=== PATIENT | female | born 1955 | race Caucasian/White ===

== ENCOUNTER 2017-10-25 17:04 | Emergency (ER) | payer BC, MEDICARE ==
[2017-10-25] MEDS ORDERED: Albuterol 2.5 MG/3 ML NEB.SOL* (0.083%) INH ONE ×2 (17:07→17:47)
[2017-10-25] MEDS ORDERED: Ipratropium 0.5MG/2.5ML NEB* 0.5 MG/2.5 ML NEB.SOLN INH ONE (17:07)
[2017-10-25 17:29] VITALS: BP 157/75
--- OUTSIDE RECORDS SUMMARY | 2017-10-25 17:34 | XMS REPORT ---
:1955 External Reference #:[id number] Author Organization [facility] Address [address], [address] [place] [address] Phone [phone] Care Team Providers Name Role Phone Mariluz Martinez MD Care Team Information Ab Initio Etl Developer Unavailable Mariluz Martinez MD Primary Care Physician Unavailable Payers Type Date Identification Numbers Payment Provider Subscriber Commercial Policy Number: [id number] Linkus Rishi Romain PayID: [id number] [address] [address] [place] [address] [facility] Policy Number: [id number] [facility] Victorina J Romain PayID: [id number] [address] [place] [address] Medicare Primary Expires: 2013 Policy Number: Medicare Victorina Valdivia Romain [id number] PayID: [id number] [address] [address] [place] [address] Problems Date Description Provider Status Onset: 03/05/2015 Chronic obstructive lung disease Donya Denton PA-C Active Onset: 03/05/2015 Subclinical hyperthyroidism Donya Denton PA-C Active Note: TSH 2014 Onset: 03/05/2015 Allergic rhinitis Donya Denton PA-C Active Onset: 03/05/2015 History of polyp of colon Donya Denton PA-C Active Note: 11 TA. colo to TI 2013 Onset: 03/05/2015 Kidney stone Donya Denton PA-C Active Onset: 03/05/2015 Essential hypertension Donya Denton PA-C Active Onset: 03/05/2015 Asthma without status asthmaticus Donya Denton PA-C Active Onset: 03/05/2015 Epilepsy Donya Denton PA-C Active Note: last seizure 2013 Onset: 03/05/2015 History of cerebrovascular accident DIVYA Carr Active without residual deficits Note: 2013 LDL 96 HDL 49; refuses statins Onset: 03/05/2015 Migraine Donya Denton PA-C Active Onset: 03/05/2015 Degenerative joint disease Donya Denton PA-C Active involving multiple joints Note: R knee synovectomy Onset: 03/05/2015 Gastroesophageal reflux disease Donya Denton PA-C Active Note: upper to D2 Bx 2013 Onset: 03/05/2015 Irritable bowel syndrome Donya Denton PA-C Active Note: -D Onset: 03/05/2015 History of thromboembolism of vein DIVYA Carr Active Note: PE, then DVT Onset: 03/05/2015 Type 2 diabetes mellitus Donya Denton PA-C Active Note: A1C 5.26 January 2016, Microalbumin- September 2014; oph October 2015 Onset: 04/17/2015 Adult health examination Donya Denton PA-C Active Note: Next dT 2025. Next PCV 13 / PPSV 23 after 65. Mammogram November 2015 breast exam WNL 13 November 2015 (mammo ordered Ma 2016, pt. did not have done); Pap 2012 (cervical cancer screening should be restarted 2017). Has an indication to start osteoporosis screening since she took prednisone > 7.5 mg in the past (no showed DEXA Jul 2016). RF, ALY neg 2015. Shingles vaccine indication after the age of 60. Onset: 04/24/2015 Paranoid schizophrenia Jason Mercedes M.D. Active Note: Hussain Bigness Onset: 06/12/2015 Dementia Donya Denton PA-C Active Onset: 06/12/2015 Anxiety Donya Denton PA-C Active Note: Managed by [facility] Onset: 08/28/2015 Coronary arteriosclerosis Jason Mercedes M.D. Active Onset: 08/28/2015 Cramp in lower leg associated with Jason Mercedes M.D. Active rest Onset: 09/20/2015 Hyperlipidemia Donya Denton PA-C Active Note: Aug 2015 Chol 274 Trig 294 LDL 159 HDL 56 Onset: 09/26/2015 Narcolepsy Donya Denton PA-C Active Note: responding to modafinil (decreased sleepiness) Onset: 11/12/2015 Screening for malignant neoplasm of DIVYA Carr Active breast Onset: 11/13/2015 Dry eyes Donya Denton PA-C Active Note: Dr. Ronen Church Onset: 08/04/2016 Mixed hyperlipidemia Ronen Howell MD Active Onset: 05/14/2017 Chronic pain syndrome Mariluz Martinez M.D. Active Onset: 05/14/2017 Acute bronchitis Mariluz Martinez M.D. Active Onset: 05/14/2017 Taking medication Mariluz Martinez M.D. Active Onset: 06/03/2017 Vitamin D deficiency Mariluz Martinez M.D. Active Onset: 06/03/2017 Sciatica Mariluz Martinez M.D. Active Onset: 06/03/2017 Abnormal glucose level Mariluz Martinez M.D. Active Onset: 09/03/2017 Low back pain Mariluz Martinez M.D. Active Onset: 09/03/2017 Neck pain Mariluz Martinez M.D. Active Onset: 09/03/2017 Cough Mariluz Martinez M.D. Active Onset: 09/03/2017 Acute sinusitis Mariluz Martinez M.D. 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 Cigarette Use current cigarette smoker ETOH Use Currently consumes alcohol socially Smoking Patient is a current smoker, smokes 1/2 pack per day every day Recreational Drug Use Marijuana Daily Caffeine Patient consumes minimal amounts of caffeine Allergies, Adverse Reactions, Alerts Date Description Reaction Status Severity Comments 05/08/2014 Morphine Resp Distress active 03/06/2015 Atorvastatin rhabdomyolysis active Severe at 80 mg dose 06/11/2015 Amitriptyline active 06/11/2015 Depakote confusion,kidney failure active 06/11/2015 Zithromax rash active 07/24/2015 Sumatriptan Nausea and Vomiting active Moderate Medications Medication Date Status Form Strength Qnty SIG Indications Ordering Provider Fluticasone 09/03 Active Suspension 50mcg/Act 16uni spray 2 J01.90 Andras ts sprays in [facility], each M.D. nostril daily Propranolol HCL 09/03 Active Tablets 20mg 180ta 1 tablet I10 And bs twice a day Karen Martinez Vitamin D3 06/03 Active Capsules 5000Unit 90cap 1 a day E55.9 Andras Maximum s Karen Martinez Clonidine HCL 04/13 Active Tablets 0.1mg 90tab 1 by mouth F41.9 And s three times Juan, daily as M.D. needed Lyrica 03/26 Active Capsules 100mg 90cap take one s capsule by Montes, mouth three M.D. times a day maximum daily dose=3 Soma 02/26 Active Tablets 350mg 90tab 1 by mouth M79.7 And s three times Juan, a day M.D. Donepezil HCL 09/22 Active Tablets 10mg 90tab 1 by mouth s every day Karen Montes Loratadine 09/22 Active Tablets 10mg 90tab 1 by mouth s every day Montes, as needed M.D. Nystatin 07/01 Active Powder [id number] 180gm apply B37.2 t/GM powder to [facility], affected M.D. area under breasts and abdominal folds twice a day Gabapentin 07/01 Active Tablets 600mg 540ta 2 by mouth And bs three times Juan, a day M.D. Ondansetron 07/01 Active Tablets 8mg 90tab 1 tab by Rolando John Dispers s mouth every Paul DO 8 hours as needed nausea Proair HFA 06/30 Active Aerosol 108(90Bas 25.5g 2 Rolando EJohn e) m inhalations Paul DO mcg/Act every 4 hours as needed Niacin ER 02/11 Active Tablets ER 1000mg 180ta 2 by mouth E78.5 Andras (Antihyperlipide /2015 bs every night valarie Martinez) at bedtime M.D. Nebulizer 12/09 Active Kit 1unit as directed Rolando Lott Kit/Tubing/Mouth /2015 s Paul ALDRIDGE piece Restasis 12/09 Active Emulsion 0.05% 60uni 1gtt twice Rolando Lott /2015 ts a day each Paul ALDRIDGE eye Celebrex 09/24 Active Capsules 200mg 90cap 1 by mouth And s every day Karen Martinez Topiramate 06/12 Active Tablets 100mg 180ta take 1 tab G43.909 And bs twice daily Karen Martinez Gemfibrozil 06/12 Active Tablets 600mg 180ta 1 by mouth Z86.73 And bs twice a day Karen Martinez Diazepam 03/27 Active Tablets 10mg 90tab Take 1 And s Tablet (10 Juan, MG) By M.D. Mouth Every 8 Hours as Needed Anxiety MDD 3 Advair Diskus Active Aerosol 500-50mcg 60uni 1 puff Rolando Lott / /Dose ts inhaled Paul ALDRIDGE twice a day Spiriva Active Capsules 18mcg 90cap 1 cap Rolando Lott Handihaler / s inhaled Paul ALDRIDGE daily Nexium Active Capsules DR 40mg 90cap 1 by mouth And / s daily in [facility], the morning M.DJohn Eliquis Active Tablets 2.5mg 60tab 1 tab by Andras / s mouth twice Juan, a day M.D. Acetaminophen Active Tablets 500mg 360ta 2 tabs by Jason Extra Strength / bs mouth every Vatra, 6 hours as M.D. needed Albuterol Active Nebulizer (2.5mg/3M 540ml 1 unit qid Andras Sulfate / L) 0.083% prn Karen Martinez Calcium Active Tablets 600-400mg 180ta 1 tab by Andras Carbonate-Vitami /0000 -Unit bs mouth twice Juan, n D3 a day M.D. Lasix 00/00 Active Tablets 40mg 90tab 1 by mouth Rolando Lott / s every day Paul ALDRIDGE as needed edema Risperdal Active Tablets 6mg 1 tab at Unknown /0000 bedtime Modafinil Active Tablets 200mg 60tab take 1 take Dwayne s by mouth Montes, bid. mdd 2 M.D. tabs Cyclobenzaprine Active Tablets 10mg as directed Unknown HCL Cymbalta Active Caps DR 60mg 180ca 1 By Mouth Andras Part ps Twice Daily Juan, M.D. Prednisone 09/03 Hx Tablets 20mg 10tab take 3 J44.9 And s tablets on , - day 1 then M.D. 09/23 2 tablet on day 2 and 3 then 1 tablet on day 4 and 5 and a half tablet and day 6 and 7 . Prednisone 08/12 Hx Tablets 20mg 10tab take 3 J44.9 s tablets on , - day 1 then M.D. 09/03 2 tablet day 2 and 3 then 1 tablet on day 4 and 5 and a half tablet and day 6 and 7 . Doxycycline 08/12 Hx Tablets 100mg 20tab 1 tab by J20.9 Andras s mouth twice Juan, - a day for M.D. 09/03 10 Prednisone 05/14 Hx Tablets 20mg 7tabs take 2 J44.9 And tablets on , day 1 and 2 M.D. then 1 tablet on day 3 and 4 then half tablet on day 5 and 6 then stop Doxycycline 05/14 Hx Tablets 100mg 20tab 1 tab by J44.9 Andras cl s mouth twice Juan, a day for M.D. 10 days Lyrica 02/26 Hx Capsules 50mg 90cap 1 by mouth M79.7 s three times Montes, - a day M.D. 03/26 Chantix Starting 07/01 Hx Tablets 0.5mg X 1tabs 0.5 mg po F17.200 Rolando Lott 11 & qd x3 days, Paul ALDRIDGE 1 mg X 42 then 0.5 mg po bid x4 days; max: 2 mg/day; info: give w/ food; start drug 1wk before quit date. Chantix 07/01 Hx Tablets 1mg 60tab 1 by mouth F17.200 Rolando Lott /2015 s twice a day Paul ALDRIDGE Propranolol HCL 07/01 Hx Tablets 40mg 180ta 1 by mouth I10 Rolando Lott bs twice a day Paul ALDRIDGE - 09/03 Prednisone 07/01 Hx Tablets 10mg 21tab 3 by mouth J44.9 Rolando Lott /2015 s every day x Paul DO - 7 days 05/14 Sulfamethoxazole 07/01 Hx Tablets 800-160mg 14tab 1 by mouth J44.9 Rolando Lion. /Trimethoprim DS s twice a day Paul DO - x 7 days 05/14 Hydroxyzine 02/11 Hx Capsules 25mg 90cap 1 PO tid F41.9 Rolando Lott Pamoate s prn Paul ALDRIDGE - 07/01 Sulfamethoxazole 02/11 Hx Tablets 800-160mg 14tab 1 by mouth J01.90 Rolando Lott /Trimethoprim DS s twice a day Paul ALDRIDGE - x 7 days 07/01 Probiotic 02/11 Hx Capsules 60cap 1-2 J01.90 Rolando Lott Acidophilus s capsules by Paul ALDRIDGE mouth daily x14 days Prednisone 02/11 Hx Tablets 10mg 21tab 3 by mouth J44.9 Rolando Lott s every day x Paul ALDRIDGE - 7 days 07/01 Ergocalciferol 02/11 Hx Capsules 41420Htpt 12cap 1 capsule Rolando Lott s orally once Paul ALDRIDGE weekly x 12 weeks Artificial Tears 11/12 Hx Solution 1-0.3% Rolando Lott Paul ALDRIDGE - 12/09 Ropinirole HCL 11/12 Hx Tablets 0.25mg 180ta Take 1 G25.81 Rolando Lott bs tablet 30 Paul ALDRIDGE - minutes 07/01 before bedtime every night x 1 week, then increase to 2 tabs 30 minutes before bedtime every night Chantix Starting 11/12 Hx Tablets 0.5mg X 1tabs 0.5 mg po Rolando Lott 11 & qd x3 days, Paul ALDRIDGE 1 mg X 42 then 0.5 mg po bid x4 days; max: 2 mg/day; info: give w/ food; start drug 1wk before quit date. Chantix 11/12 Hx Tablets 1mg 60tab 1 PO bid Rolando Lott Continuing s Paul ALDRIDGE Catrachito Niaspan 09/24 Hx Tablets ER 500mg 180ta 1 tabs (500 E78.5 bs mg) by Vatra, - mouth every M.D. 07/01 night at bedtime x 4 weeks, then 2 tablets by mouth (1000 mg) [facility] Nuvigil 09/23 Hx Tablets 150mg 30tab 1 po q am s Vatra, - M.D. 09/24 Oxycodone HCL 08/28 Hx Tablets 15mg 180ta 1 tab by M54.5 bs mouth every Vat, - 4 hours as M.D. 11/12 needed Propranolol HCL 08/28 Hx Tablets 20mg 60tab 1 tab by I10 s mouth twice Vatra, - a day M.D. 07/01 Levocetirizine 07/24 Hx Tablets 5mg 90tab 1 PO daily [facility] Dihydrochlor s Vatra, - M.D. 07/01 Bactrim DS 07/24 Hx Tablets 800-160mg 20tab 1 by mouth s every 12 Vatra, - hours x 10 M.D. Prednisone 07/24 Hx Tablets 20mg 14tab 1 tab PO s bid x 7 Vatra, - days M.D. 08/28 Diabetic Tussin 07/24 Hx Liquid 10-200mg/ 354ml Use as J01.90 [facility] Maximum 5ML directed Vatra, - M.D. 08/28 Gabapentin 07/10 Hx Tablets 800mg 360ta 1 by mouth Rolando Lott /2014 bs 4 times a Paul DO - day 07/01 Topiramate 06/12 Hx Tablets 25mg 60tab 2 by mouth s [facility] Daren, - M.D. 06/12 Tizanidine HCL 06/12 Hx Tablets 4mg 180ta take 2 M54.5 Rolando E. /2014 bs tablets by Paul DO - mouth every 02/26 8 hours as needed Oxycodone HCL 06/12 Hx Tablets 20mg 180ta 1 by mouth M54.5 bs every 4 h Daren - as needed M.D. 08/28 pain Risperdal 05/11 Hx Tablets 0.25mg 30tab 2 po q hs s per Mental Daren - health M.D. 06/12 Bactrim DS 04/17 Hx Tablets 800-160mg 14tab 1 PO Q 12 L03.116 s hours x 7 Daren, - days M.D. 06/11 Celebrex 04/17 Hx Capsules 200mg 90cap 1 by mouth s every day Daren, - M.D. 06/12 Topiramate 04/17 Hx Tablets 25mg 120ta 1 tab (25) G43.909 bs PO qhs Daren, - x1wk, then M.D. 06/12 2 tabs (50 /2015 mg) QHS x 1 week, then 2 tabs PO (50 mg) bid. Donepezil HCL 03/06 Hx Tablets 10mg 90tab 1 by mouth R41.3 s daily Chidi Mercedes M.DJohn 07/01 Gabapentin Hx Capsules 400mg 800mg by Unknown /0000 mouth 4x - daily 07/10 Lisinopril Hx Tablets 40mg 180ta 1 by mouth bs twice daily Karen Mercedes Oxycodone HCL Hx Tablets 5mg 10mg by Unknown /0000 mouth every - 8 hours as 03/06 Ventolin HFA Hx Aerosol 108(90Bas 16gm 2 puff prn e) q 4 hours Chidi Mercedes mcg/Act M.DJohn 06/30 Abilify Hx Tablets Unknown /0000 - 03/05 Valium 00/ Hx Tablets 5mg 1 po every Bertin, 6 hours as Donya - needed Marva 03/27 PA-C Vancomycin HCL Hx Solution 1GM/200ML inject 200 Unknown In Dextrose /0000 ml every 24 - hrs 06/11 Keflex Hx Capsules 500mg 1 tab by Unknown /0000 mouth four - times a day 06/11 Aluminum-Magnesi Hx Suspension 200-200-2 by mouth q4 Unknown um-Simethicone /0000 0mg/5ML hours as - needed 06/12 Provigil Hx Tablets 200mg 60tab 1 by mouth Jason /0000 s twice a day Daren, - M.DJohn 09/23 Oxycodone HCL Hx Tablets 15mg 1-2 tablet Unknown /0000 by mouth - every 4-6 06/12 hours as needed pain Crestor Hx Tablets 40mg 1 by mouth Unknown /0000 q hs - 06/12 Tizanidine HCL Hx Tablets 2mg 1 by mouth Unknown /0000 q 6 hrs prn - 06/12 Topamax Hx Tablets 100mg 1 by mouth Unknown /0000 twice a day - 06/[address] Hx C[address] 60mg Unknown /0000 Part - 06/12 Proair HFA Hx Aerosol 108(90Bas Unknown /0000 e) - mcg/Act 06/12 Celecoxib Hx Capsules 200mg Unknown /0000 - 06/12 Metoclopramide Hx Tablets 10mg 270ta 1 by mouth Jason HCL /0000 bs qac three Daren, - times a day M.DJohn 07/01 Celebrex Hx Capsules 100mg 1 by mouth Unknown /0000 every day - 09/24 Oxycodone HCL 0000 Hx Tablets 15mg 1 po bid Unknown /0000 - 03/23 Oxycontin / Hx Tab ER 12H 20mg 1 po bid Unknown /0000 Abuse-Det - 03/23 Naproxen Hx Tablets 500mg TK 1 T PO Unknown /0000 bid Oxycodone HCL 00/00 Hx Tablets 5mg Unknown /0000 Medications Administered in Office Medication Date Status Form Strength Qnty SIG Indications Ordering Provider Depomedrol 80 Administered Injection Brenda S. mg 014 JANICE Sauceda Immunizations CPT Code Status Date Vaccine Lot # [id number] Given 04/13/2017 Influenza Virus Vaccine Quadrivalent Iiv4 Split [id number] Preser Free Id Q2038 Given 07/01/2016 Influenza Vaccine (Fluzone) Age 3 And Older [id number] Given 08/28/2015 Td Preservative Free For Use In Individuals 7 Yrs [id number] Or Older 16655 Given 08/28/2015 Pneumococcal Conjugate Vaccine 13 Valent For [id number] Intramuscular Use Q2038 Given 04/17/2015 Influenza Vaccine (Fluzone) Age 3 And Older Q2038 Given 04/17/2015 Influenza Vaccine (Fluzone) Age 3 And Older [id number] U-Td Given 03/20/2015 Td(Adult),Unspecified U-Pneum Given 08/03/2014 Pneumococcal,Unspecified [id number] 39174 Given 07/20/2008 Tdap injection U-Tetan Given Unknown Tetanus,Unspecified 03159 Given Unknown Tetnus Injection Vital Signs Date Vital Result Comment 09/23/2017 BP Systolic Sitting Left Arm 136 mmHg BP Diastolic Sitting Left Arm 80 mmHg Heart Rate 77 /min Respiratory Rate 20 /min Height 67 inches 5'7" Weight 244.00 lb BMI (Body Mass Index) 38.2 kg/m2 BSA (Body Surface Area) 2.20 m2 [place] body weight in kilograms 61 O2 % BldC Oximetry 94 % 09/03/2017 BP Systolic 144 mmHg BP Diastolic 77 mmHg Body Temperature 98.5 F Heart Rate 77 /min Respiratory Rate 16 /min Height 67 inches 5'7" Weight 244.00 lb BMI (Body Mass Index) 38.2 kg/m2 BSA (Body Surface Area) 2.20 m2 [place] body weight in kilograms 61 O2 % BldC Oximetry 95 % 08/12/2017 BP Systolic Sitting Right Arm 151 mmHg BP Diastolic Sitting Right Arm 77 mmHg Body Temperature 101.4 F Heart Rate 65 /min Respiratory Rate 20 /min Height 67 inches 5'7" Weight 240.00 lb BMI (Body Mass Index) 37.6 kg/m2 BSA (Body Surface Area) 2.19 m2 [place] body weight in kilograms 61 O2 % BldC Oximetry 92 % 06/03/2017 BP Systolic 150 mmHg BP Diastolic 82 mmHg Heart Rate 60 /min Height 67 inches 5'7" Weight 236.38 lb BMI (Body Mass Index) 37.0 kg/m2 BSA (Body Surface Area) 2.17 m2 [place] body weight in kilograms 61 05/14/2017 BP Systolic 148 mmHg BP Diastolic 72 mmHg Heart Rate 72 /min Respiratory Rate 14 /min Height 67 inches 5'7" Weight 234.38 lb BMI (Body Mass Index) 36.7 kg/m2 BSA (Body Surface Area) 2.16 m2 [place] body weight in kilograms 61 O2 % BldC Oximetry 98 % 04/13/2017 BP Systolic 141 mmHg BP Diastolic 91 mmHg Heart Rate 85 /min Respiratory Rate 16 /min Height 67 inches 5'7" Weight 233.12 lb BMI (Body Mass Index) 36.5 kg/m2 BSA (Body Surface Area) 2.16 m2 [place] body weight in kilograms 61 O2 % BldC Oximetry 95 % 02/26/2017 BP Systolic 139 mmHg BP Diastolic 69 mmHg Heart Rate 63 /min Respiratory Rate 14 /min Height 67 inches 5'7" Weight 223.12 lb BMI (Body Mass Index) 34.9 kg/m2 BSA (Body Surface Area) 2.12 m2 [place] body weight in kilograms 61 O2 % BldC Oximetry 96 % 07/01/2016 BP Systolic 145 mmHg BP Diastolic 74 mmHg Heart Rate 74 /min Height 67 inches 5'7" Weight 241.00 lb BMI (Body Mass Index) 37.7 kg/m2 BSA (Body Surface Area) 2.19 m2 02/12/2016 BP Systolic 129 mmHg BP Diastolic 72 mmHg Body Temperature 98.7 F Heart Rate 74 /min Height 67 inches 5'7" Weight 248.00 lb BMI (Body Mass Index) 38.8 kg/m2 BSA (Body Surface Area) 2.22 m2 O2 % BldC Oximetry 96 % 11/13/2015 BP Systolic 110 mmHg BP Diastolic 64 mmHg Heart Rate 72 /min Height 67 inches 5'7" Weight 230.00 lb BMI (Body Mass Index) 36.0 kg/m2 BSA (Body Surface Area) 2.15 m2 09/25/2015 BP Systolic 119 mmHg BP Diastolic 78 mmHg Heart Rate 65 /min Height 67 inches 5'7" Weight 232.00 lb BMI (Body Mass Index) 36.3 kg/m2 BSA (Body Surface Area) 2.15 m2 08/28/2015 BP Systolic 157 mmHg BP Diastolic 75 mmHg Heart Rate 87 /min Height 67 inches 5'7" Weight 230.00 lb BMI (Body Mass Index) 36.0 kg/m2 BSA (Body Surface Area) 2.15 m2 07/24/2015 BP Systolic 160 mmHg BP Diastolic 81 mmHg Heart Rate 110 /min Height 67 inches 5'7" Weight 222.00 lb BMI (Body Mass Index) 34.8 kg/m2 BSA (Body Surface Area) 2.11 m2 O2 % BldC Oximetry 99 % 06/12/2015 BP Systolic 126 mmHg BP Diastolic 66 mmHg Heart Rate 75 /min Height 67 inches 5'7" Weight 219.00 lb BMI (Body Mass Index) 34.3 kg/m2 BSA (Body Surface Area) 2.10 m2 04/17/2015 BP Systolic 128 mmHg BP Diastolic 84 mmHg Heart Rate 78 /min Height 67 inches 5'7" Weight 202.00 lb BMI (Body Mass Index) 31.6 kg/m2 BSA (Body Surface Area) 2.03 m2 03/06/2015 BP Systolic Sitting Left Arm 122 mmHg BP Diastolic Sitting Left Arm 72 mmHg Heart Rate 60 /min Respiratory Rate 16 /min Height 67 inches 5'7" Weight 214.00 lb BMI (Body Mass Index) 33.5 kg/m2 BSA (Body Surface Area) 2.08 m2 05/08/2014 BP Systolic Sitting Right Arm 148 mmHg BP Diastolic Sitting Right Arm 72 mmHg Height 65 inches 5'5" Weight 226.00 lb BMI (Body Mass Index) 37.6 kg/m2 BSA (Body Surface Area) 2.08 m2 Results Test Date Test Result H/L Range Note Laboratory test finding 08/07/2017 Vitamin D,25-Hydroxy 26.4 ng/mL Low 30.0-100.0 1, 2 Aldosterone 1.3 ng/dL 0.0-30.0 1, 3 Comprehensive Metabolic Panel 08/07/2017 Glucose 93 mg/dL 74-106 1 BUN 17 mg/dL 7-18 1 Creatinine 0.9 mg/dL 0.6-1.3 1 Glom Filtration Rate, Estimate >60 mL/min >60 1 If >60 mL/min >60 1, 4 BUN/Creat 18.8 ratio 1 Sodium 142 mmol/L 136-145 1 Potassium 4.1 mmol/L 3.5-5.1 1 Chloride 106 mmol/L 98-107 1 Carbon Dioxide 29 mmol/L 21-32 1 Anion Gap 7 mEq/L Low 8-16 1 Calcium 9.1 mg/dL 8.5-10.1 1 Total Protein 7.3 g/dL 6.4-8.2 1 Albumin 3.6 g/dL 3.4-5.0 1 Globulin 3.7 g/dL 1.9-4.3 1 Alb/Glob 1.0 ratio 1 Bilirubin,Total 0.4 mg/dL 0.2-1.0 1 Sgot/Ast 11 U/L Low 15-37 1, 5 SGPT/Alt 18 U/L 12-78 1 Alkaline Phosphatase 101 U/L 45-117 1 Laboratory test finding 08/07/2017 Gabapentin (Neurontin) 9.4 ug/mL 4.0- 16.0 1, 6 CBS W/Automated Diff 08/07/2017 White Blood Count 7.5 K/uL 3.1-10.7 1 Red Blood Count 4.58 M/uL 3.90-5.40 1 Hemoglobin 14.3 gm/dL 11.6-15.8 1 Hematocrit 41.3 % 36.0-46.1 1 Mean Cell Volume 90.2 fl 80.9-99.0 1 Mean Corpuscular HGB 31.2 pg 25.9-32.7 1 Mean Corpuscular HGB Conc 34.6 g/dL High 30.8-34.3 1 Platelet Count 282 K/uL 155-360 1 Red Cell Distri Width SD 42.1 fl 3-47 1 Red Cell Distri Width %CV 13.2 % 11.7-14.4 1 Mean Platelet Volume 10.5 fL 8.9-12.4 1 Neut% 54.5 % 40.4-72.8 1 Lymph % 37.3 % 20.0-42.0 1 [place] % 5.8 % 4.3-13.2 1 Eo% 2.1 % 0.0-6.6 1 Bas% 0.3 % 0.0-1.1 1 Neut# 4.11 K/uL 1.8-7.0 1 Lymph # 2.81 K/uL 1.0-4.0 1 [place] # 0.44 K/uL 0.3-0.9 1 Eos # 0.16 K/uL 0.0-0.5 1 Baso # 0.02 K/uL 0.0-0.1 1 Laboratory test finding 05/27/2017 Gabapentin (Neurontin) 4.5 ug/mL 4.0- 16.0 7, 8 Ua RFX Micro & 05/27/2017 Urine Color YELLOW Yellow 9 Culture II Urine Clarity CLEAR Clear 9 Urine Glucose - Dipstick NEGATIVE mg/dL Negative 9 Urine Bilirubin - Dipstick NEGATIVE Negative 9 Urine Ketone NEGATIVE mg/dL Negative 9 Urine Specific [place] 1.010 1.010-1.030 9 Urine Blood NEGATIVE Negative 9 Urine PH 5.5 Low 6.5-7.5 9 Urine Protein - Dipstick NEGATIVE mg/dL Negative 9 Urine Urobilinogen - Dipstick 0.2 E.U./dL 0.2-1.0 9 Urine Nitrite - Dipstick NEGATIVE Negative 9 Urine Leuk Esterase NEGATIVE Negative 9 Source: URINE, CLEAN CAT <SEE NOTE> 9, 10 Chlamydia/GC Gabrielle, Urine 05/27/2017 Chlamydia Trachomatis,Ur Negative Negative 9 -PCR Neisseria Gonorrhoeae,Ur -PCR Negative Negative 9, 11 Comprehensive Metabolic Panel 05/27/2017 Glucose 121 mg/dL High 74-106 12 BUN 15 mg/dL 7-18 12 Creatinine 0.8 mg/dL 0.6-1.3 12 Glom Filtration Rate, Estimate >60 mL/min >60 12 If >60 mL/min >60 12, 13 BUN/Creat 18.7 ratio 12 Sodium 139 mmol/L 136-145 12 Potassium 4.4 mmol/L 3.5-5.1 12 Chloride 104 mmol/L 98-107 12 Carbon Dioxide 29 mmol/L 21-32 12 Anion Gap 6 mEq/L Low 8-16 12 Calcium 9.1 mg/dL 8.5-10.1 12 Total Protein 7.3 g/dL 6.4-8.2 12 Albumin 3.5 g/dL 3.4-5.0 12 Globulin 3.8 g/dL 1.9-4.3 12 Alb/Glob 0.9 ratio 12 Bilirubin,Total 0.7 mg/dL 0.2-1.0 12 Sgot/Ast 5 U/L Low 15-37 12, 14 SGPT/Alt 15 U/L 12-78 12 Alkaline Phosphatase 131 U/L High 45-117 12 Protein Electro.,S 05/27/2017 Protein,Total,Serum 6.7 g/dL 6.0-8.5 12 Albumin 3.6 g/dL 2.9-4.4 12 Rojby-9-Ysvjiitb 0.3 g/dL 0.0-0.4 12 Tzfpo-5-Ufmxmlvc 1.0 g/dL 0.4-1.0 12 Beta Globulin 1.1 g/dL 0.7-1.3 12 Gamma Globulin 0.7 g/dL 0.4-1.8 12 M-Kirk Not Observed g/dL Not Observed 12 Globulin, Total 3.1 g/dL 2.2-3.9 12 A/G Ratio 1.2 0.7-1.7 12 Please Note: . 12, 15 P E Interpretation, Serum . 12, 16 LDL Cholesterol Profile 05/27/2017 Cholesterol 253 mg/dL High <200 12 , 17 Triglycerides 118 mg/dL <150 12, 18 HDL Cholesterol 88 mg/dL >40 12, 19 LDL-Cholesterol 141 mg/dL < 100 12, 20 Laboratory test 05/27/2017 Vitamin D,25-Hydroxy 21.7 ng/mL Low 30.0-100.0 12, 21 finding Glycohemoglobin A1c 05/27/2017 Glycohemoglobin (A1c) 5.9 % 4.2-6.3 12, 22 eAG 123 mg/dL 12 Vitamin B12 And Folate 05/27/2017 Vitamin B12 573 pg/mL 193-986 12 Folic Acid 10.6 ng/mL 3.1-17.5 12 Laboratory test finding 05/27/2017 Magnesium 2.1 mg/dL 1.8-2.4 12 Ferritin 62 ng/mL 8-252 12 Drugs Of Abuse-Urine Screen 7 05/04/2017 Amphetamines (Urine) Negative 23 Barbiturates (Urine) Negative 23 Benzodiazepines (Urine) POSITIVE High 23 Cannabinoids (Urine) POSITIVE 23 Cocaine Metabolite (Urine) Negative 23 Methadone (Urine) Negative 23 Opiates (Urine) Negative 23 Urine Cutoffs * 23, 24 Ua RFX Micro & Culture II 05/04/2017 Urine Color YELLOW Yellow 23 Urine Clarity CLEAR Clear 23 Urine Glucose - Dipstick NEGATIVE mg/dL Negative 23 Urine Bilirubin - Dipstick NEGATIVE Negative 23 Urine Ketone NEGATIVE mg/dL Negative 23 Urine Specific [place] 1.020 1.010-1.030 23 Urine Blood NEGATIVE Negative 23 Urine PH 5.5 Low 6.5-7.5 23 Urine Protein - Dipstick NEGATIVE mg/dL Negative 23 Urine Urobilinogen - Dipstick 0.2 E.U./dL 0.2-1.0 23 Urine Nitrite - Dipstick NEGATIVE Negative 23 Urine Leuk Esterase NEGATIVE Negative 23 Source: URINE, CLEAN CAT <SEE 23, 25 NOTE> CBS W/Automated Diff 05/04/2017 White Blood Count 8.6 K/uL 3.1-10.7 23 Red Blood Count 4.50 M/uL 3.90-5.40 23 Hemoglobin 13.9 gm/dL 11.6-15.8 23 Hematocrit 41.2 % 36.0-46.1 23 Mean Cell Volume 91.6 fl 80.9-99.0 23 Mean Corpuscular HGB 30.9 pg 25.9-32.7 23 Mean Corpuscular HGB Conc 33.7 g/dL 30.8-34.3 23 Platelet Count 221 K/uL 150-400 23 Red Cell Distri Width SD 45.1 fl 3-47 23 Red Cell Distri Width %CV 13.9 % 11.7-14.4 23 Mean Platelet Volume 9.6 fL 8.9-12.4 23 Neut% 52.8 % 40.4-72.8 23 Lymph % 38.3 % 20.0-42.0 23 Garland % 7.2 % 4.3-13.2 23 Eo% 1.6 % 0.0-6.6 23 Bas% 0.1 % 0.0-1.1 23 Neut# 4.56 K/uL 1.8-7.0 23 Lymph # 3.31 K/uL 1.0-4.0 23 Garland # 0.62 K/uL 0.3-0.9 23 Eos # 0.14 K/uL 0.0-0.5 23 Baso # 0.01 K/uL 0.0-0.1 23 Laboratory test finding 05/04/2017 Salicylate 4.4 mg/dL 2.8-20.0 23, 26 Acetaminophen < 2.0 ug/mL Low 10.0-30.0 23, 27 Ethyl Alcohol < 3.0 mg/dL 23 Comprehensive Metabolic Panel 05/04/2017 Glucose 114 mg/dL High 74-106 23 BUN 17 mg/dL 7-18 23 Creatinine 1.0 mg/dL 0.6-1.3 23 Glom Filtration Rate, Estimate 60 mL/min >60 23 If >60 mL/min >60 23, 28 BUN/Creat 17.0 ratio 23 Sodium 140 mmol/L 136-145 23 Potassium 3.6 mmol/L 3.5-5.1 23 Chloride 108 mmol/L High 98-107 23 Carbon Dioxide 24 mmol/L 21-32 23 Anion Gap 8 mEq/L 8-16 23 Calcium 9.3 mg/dL 8.5-10.1 23 Total Protein 7.6 g/dL 6.4-8.2 23 Albumin 3.9 g/dL 3.4-5.0 23 Globulin 3.7 g/dL 1.9-4.3 23 Alb/Glob 1.1 ratio 23 Bilirubin,Total 0.3 mg/dL 0.2-1.0 23 Sgot/Ast 10 U/L Low 15-37 23, 29 SGPT/Alt 13 U/L 12-78 23 Alkaline Phosphatase 126 U/L High 45-117 23 Laboratory test 05/04/2017 TSH Reflex FT4 0.81 uIU/mL 0.30-4.20 23 finding and/or FT3 LDL Cholesterol 04/16/2017 Cholesterol 224 mg/dL High <200 30, 31 Profile Triglycerides 154 mg/dL High <150 30, 32 HDL Cholesterol 58 mg/dL >40 30, 33 LDL-Cholesterol 135 mg/dL < 100 30, 34 Laboratory test finding 04/16/2017 Treponema Antibody Negative Negative 30, 35 Clay Ua RFX Micro & 04/15/2017 Urine Color YELLOW Yellow 36 Culture II Urine Clarity CLEAR Clear 36 Urine Glucose - Dipstick NEGATIVE mg/dL Negative 36 Urine Bilirubin - Dipstick NEGATIVE Negative 36 Urine Ketone NEGATIVE mg/dL Negative 36 Urine Specific [place] <=1.005 Low 1.010-1.030 36 Urine Blood NEGATIVE Negative 36 Urine PH 6.0 Low 6.5-7.5 36 Urine Protein - Dipstick NEGATIVE mg/dL Negative 36 Urine Urobilinogen - Dipstick 0.2 E.U./dL 0.2-1.0 36 Urine Nitrite - Dipstick NEGATIVE Negative 36 Urine Leuk Esterase NEGATIVE Negative 36 Source: URINE, CLEAN CAT <SEE 36, 37 NOTE> Drugs Of Abuse-Urine Screen 7 04/15/2017 Amphetamines (Urine) Negative 36 Barbiturates (Urine) Negative 36 Benzodiazepines (Urine) POSITIVE High 36 Cannabinoids (Urine) POSITIVE 36 Cocaine Metabolite (Urine) Negative 36 Methadone (Urine) Negative 36 Opiates (Urine) Negative 36 Urine Cutoffs * 36, 38 CBS W/Automated Diff 04/15/2017 White Blood Count 7.4 K/uL 3.1-10.7 36 Red Blood Count 4.29 M/uL 3.90-5.40 36 Hemoglobin 13.1 gm/dL 11.6-15.8 36 Hematocrit 38.9 % 36.0-46.1 36 Mean Cell Volume 90.7 fl 80.9-99.0 36 Mean Corpuscular HGB 30.5 pg 25.9-32.7 36 Mean Corpuscular HGB Conc 33.7 g/dL 30.8-34.3 36 Platelet Count 218 K/uL 150-400 36 Red Cell Distri Width SD 43.4 fl 3-47 36 Red Cell Distri Width %CV 13.6 % 11.7-14.4 36 Mean Platelet Volume 10.1 fL 8.9-12.4 36 Neut% 63.9 % 40.4-72.8 36 Lymph % 29.1 % 20.0-42.0 36 Garland % 5.7 % 4.3-13.2 36 Eo% 1.0 % 0.0-6.6 36 Bas% 0.3 % 0.0-1.1 36 Neut# 4.70 K/uL 1.8-7.0 36 Lymph # 2.14 K/uL 1.0-4.0 36 Garland # 0.42 K/uL 0.3-0.9 36 Eos # 0.07 K/uL 0.0-0.5 36 Baso # 0.02 K/uL 0.0-0.1 36 Laboratory test finding 04/15/2017 Salicylate 5.0 mg/dL 2.8-20.0 36, 39 LDL Cholesterol Profile 02/11/2016 Cholesterol 212 mg/dL High <200 40 Triglycerides 218 mg/dL High <150 41 HDL Cholesterol 50 mg/dL >40 42 LDL-Cholesterol 118 mg/dL < 100 43 Laboratory test finding 02/11/2016 Magnesium 1.9 mg/dL 1.8-2.4 Comprehensive Metabolic Panel 02/11/2016 Glucose 108 mg/dL High 74-106 BUN 16 mg/dL 7-18 Creatinine 0.9 mg/dL 0.6-1.3 Glom Filtration Rate, Estimate >60 mL/min >60 If >60 mL/min >60 44 BUN/Creat 17.7 ratio Sodium 143 mmol/L 136-145 Potassium 3.9 mmol/L 3.5-5.1 Chloride 110 mmol/L High 98-107 Carbon Dioxide 26 mmol/L 21-32 Anion Gap 7 mEq/L Low 8-16 Calcium 8.5 mg/dL 8.5-10.1 Total Protein 7.2 g/dL 6.4-8.2 Albumin 3.5 g/dL 3.4-5.0 Globulin 3.7 g/dL 1.9-4.3 Alb/Glob 0.9 ratio Bilirubin,Total 0.2 mg/dL 0.2-1.0 Sgot/Ast 9 U/L Low 15-37 45 SGPT/Alt 16 U/L 12-78 Alkaline Phosphatase 118 U/L High 45-117 Glycohemoglobin A1c 02/11/2016 Glycohemoglobin (A1c) 5.9 % 4.2-6.3 46 eAG 123 mg/dL Laboratory test finding 02/11/2016 Gamma Glutamyl Transpeptidase 5 U/L 5- 85 Vitamin D,25-Hydroxy 22.5 ng/mL Low 30.0-100.0 47 Thyroid Stim Hormone 0.88 uIU/mL 0.30-4.20 Antinuclear Antibodies, Ifa Negative . 48 Rheumatoid Factor Screen < 10.0 IU/mL 0.0-15.0 Laboratory test finding 11/08/2015 Magnesium 2.2 mg/dL 1.8-2.4 Comprehensive Metabolic Panel 11/08/2015 Glucose 89 mg/dL 74-106 BUN 20 mg/dL High 7-18 Creatinine 1.3 mg/dL 0.6-1.3 Glom Filtration Rate, Estimate 45 mL/min >60 If 54 mL/min >60 49 BUN/Creat 15.3 ratio Sodium 141 mmol/L 136-145 Potassium 4.0 mmol/L 3.5-5.1 Chloride 107 mmol/L 98-107 Carbon Dioxide 27 mmol/L 21-32 Anion Gap 7 mEq/L Low 8-16 Calcium 9.3 mg/dL 8.5-10.1 Total Protein 7.2 g/dL 6.4-8.2 Albumin 3.6 g/dL 3.4-5.0 Globulin 3.6 g/dL 1.9-4.3 Alb/Glob 1.0 ratio Bilirubin,Total 0.3 mg/dL 0.2-1.0 Sgot/Ast 8 U/L Low 15-37 50 SGPT/Alt 15 U/L 12-78 Alkaline Phosphatase 122 U/L High 45-117 Comprehensive Metabolic Panel 09/14/2015 Glucose 118 mg/dL High 74-106 BUN 21 mg/dL High 7-18 Creatinine 1.2 mg/dL 0.6-1.3 Glom Filtration Rate, Estimate 49 mL/min >60 If 60 mL/min >60 51 BUN/Creat 17.5 ratio Sodium 142 mmol/L 136-145 Potassium 3.9 mmol/L 3.5-5.1 Chloride 106 mmol/L 98-107 Carbon Dioxide 25 mmol/L 21-32 Anion Gap 11 mEq/L 8-16 Calcium 9.1 mg/dL 8.5-10.1 Total Protein 7.6 g/dL 6.4-8.2 Albumin 4.1 g/dL 3.4-5.0 Globulin 3.5 g/dL 1.9-4.3 Alb/Glob 1.2 ratio Bilirubin,Total 0.4 mg/dL 0.2-1.0 Sgot/Ast 10 U/L Low 15-37 52 SGPT/Alt 15 U/L 12-78 Alkaline Phosphatase 111 U/L 45-117 Glycohemoglobin A1c 09/14/2015 Glycohemoglobin (A1c) 5.6 % 4.2-6.3 53 eAG 114 mg/dL LDL Cholesterol Profile 09/14/2015 Cholesterol 274 mg/dL High <200 54 Triglycerides 294 mg/dL High <150 55 HDL Cholesterol 56 mg/dL >40 56 LDL-Cholesterol 159 mg/dL < 100 57 Comprehensive Metabolic Panel 07/21/2015 Glucose 106 mg/dL 74-106 BUN 18 mg/dL 7-18 Creatinine 1.1 mg/dL 0.6-1.3 Glom Filtration Rate, Estimate 54 mL/min >60 If >60 mL/min >60 58 BUN/Creat 16.3 ratio Sodium 143 mmol/L 136-145 Potassium 3.7 mmol/L 3.5-5.1 Chloride 110 mmol/L High 98-107 Carbon Dioxide 24 mmol/L 21-32 Anion Gap 9 mEq/L 8-16 Calcium 8.9 mg/dL 8.5-10.1 Total Protein 6.6 g/dL 6.4-8.2 Albumin 3.4 g/dL 3.4-5.0 Globulin 3.2 g/dL 1.9-4.3 Alb/Glob 1.1 ratio Bilirubin,Total 0.4 mg/dL 0.2-1.0 Sgot/Ast 6 U/L Low 15-37 59 SGPT/Alt 16 U/L 12-78 Alkaline Phosphatase 79 U/L 45-117 Laboratory test finding 07/21/2015 Lipase 86 U/L 73-393 Laboratory test finding 07/21/2015 Estimated GFR (Non- 54 >60 Citizen [place] RDW Coefficient of Variation 13.5 11.7-14.4 Sodium Level 143 136-145 Laboratory test finding 07/21/2015 D-Dimer, Quantitative 0.31 ug/mL 60 CBC 07/21/2015 White Blood Count 10.3 K/uL 3.1-10.7 Red Blood Count 3.93 M/uL 3.90-5.40 Hemoglobin 12.1 gm/dL 11.6-15.8 Hematocrit 37.4 % 36.0-46.1 Mean Cell Volume 95.2 fl 80.9-99.0 Mean Corpuscular HGB 30.8 pg 25.9-32.7 Mean Corpuscular HGB Conc 32.4 g/dL 30.8-34.3 Platelet Count 257 K/uL 155-360 Red Cell Distri Width %CV 13.5 % 11.7-14.4 Mean Platelet Volume 10.0 fL 8.9-12.4 Laboratory test finding 06/08/2015 Sodium Level 141 136-145 Comprehensive Metabolic Panel 06/08/2015 Glucose 102 mg/dL 74-106 BUN 24 mg/dL High 7-18 Creatinine 1.0 mg/dL 0.6-1.3 Glom Filtration Rate, Estimate >60 mL/min >60 If >60 mL/min >60 61 BUN/Creat 24.0 ratio Sodium 141 mmol/L 136-145 Potassium 4.2 mmol/L 3.5-5.1 Chloride 109 mmol/L High 98-107 Carbon Dioxide 26 mmol/L 21-32 Anion Gap 6 mEq/L Low 8-16 Calcium 8.9 mg/dL 8.5-10.1 Total Protein 7.1 g/dL 6.4-8.2 Albumin 3.7 g/dL 3.4-5.0 Globulin 3.4 g/dL 1.9-4.3 Alb/Glob 1.1 ratio Bilirubin,Total 0.2 mg/dL 0.2-1.0 Sgot/Ast 7 U/L Low 15-37 62 SGPT/Alt 19 U/L 12-78 Alkaline Phosphatase 98 U/L 45-117 LDL Cholesterol Profile 06/08/2015 Cholesterol 269 mg/dL High <200 63 Triglycerides 257 mg/dL High <150 64 HDL Cholesterol 45 mg/dL >40 65 LDL-Cholesterol 173 mg/dL < 100 66 Comprehensive Metabolic Panel 04/11/2015 Glucose 120 mg/dL High 74-106 BUN 12 mg/dL 7-18 Creatinine 1.0 mg/dL 0.6-1.3 Glom Filtration Rate, Estimate >60 mL/min >60 If >60 mL/min >60 67 BUN/Creat 12.0 ratio Sodium 140 mmol/L 136-145 Potassium 3.8 mmol/L 3.5-5.1 Chloride 106 mmol/L 98-107 Carbon Dioxide 27 mmol/L 21-32 Anion Gap 7 mEq/L Low 8-16 Calcium 9.3 mg/dL 8.5-10.1 Total Protein 6.7 g/dL 6.4-8.2 Albumin 3.4 g/dL 3.4-5.0 Globulin 3.3 g/dL 1.9-4.3 Alb/Glob 1.0 ratio Bilirubin,Total 0.4 mg/dL 0.2-1.0 Sgot/Ast 10 U/L Low 15-37 68 SGPT/Alt 19 U/L 12-78 Alkaline Phosphatase 96 U/L 45-117 Laboratory test finding 04/11/2015 Gamma Glutamyl Transpeptidase 11 U/L 5 -85 Thyroxine (T4) 11.6 g/dL 4.7-13.5 Thyroid Stim Hormone 0.43 uIU/mL 0.36-3.74 Glycohemoglobin A1c 04/11/2015 Glycohemoglobin (A1c) 6.1 % 4.2-6.3 69 eAG 128 mg/dL Laboratory test finding 04/11/2015 Triiodothyronine,Total 159 ng/dL 71- 180 70 CBC 04/11/2015 White Blood Count 4.7 K/uL 3.1-10.7 Red Blood Count 3.80 M/uL Low 3.90-5.40 Hemoglobin 11.7 gm/dL 11.6-15.8 Hematocrit 35.2 % Low 36.0-46.1 Mean Cell Volume 92.6 fl 80.9-99.0 Mean Corpuscular HGB 30.8 pg 25.9-32.7 Mean Corpuscular HGB Conc 33.2 g/dL 30.8-34.3 Platelet Count 260 K/uL 155-360 Red Cell Distri Width %CV 13.3 % 11.7-14.4 Mean Platelet Volume 10.3 fL 8.9-12.4 Laboratory test finding 04/11/2015 Rapid Plasma Reagin NONREACTIVE NONREACTIVE 71 Laboratory test finding 04/11/2015 Estimated Average 128 Glucose (eAG) Hemoglobin A1c 6.1 4.2-6.3 RDW Coefficient of Variation 13.3 11.7-14.4 Sodium Level 140 136-145 Comprehensive Metabolic Panel 03/29/2015 Glucose 100 mg/dL 74-106 BUN 23 mg/dL High 7-18 Creatinine 1.4 mg/dL High 0.6-1.3 Glom Filtration Rate, Estimate 41 mL/min >60 If 50 mL/min >60 72 BUN/Creat 16.4 ratio Sodium 138 mmol/L 136-145 Potassium 4.3 mmol/L 3.5-5.1 Chloride 107 mmol/L 98-107 Carbon Dioxide 26 mmol/L 21-32 Anion Gap 5 mEq/L Low 8-16 Calcium 9.0 mg/dL 8.5-10.1 Total Protein 7.2 g/dL 6.4-8.2 Albumin 3.6 g/dL 3.4-5.0 Globulin 3.6 g/dL 1.9-4.3 Alb/Glob 1.0 ratio Bilirubin,Total 0.2 mg/dL 0.2-1.0 Sgot/Ast 13 U/L Low 15-37 73 SGPT/Alt 22 U/L 12-78 Alkaline Phosphatase 102 U/L 45-117 Laboratory test finding 03/29/2015 CK 54 U/L 26-192 Thyroid Stim Hormone 0.95 uIU/mL 0.36-3.74 Glycohemoglobin A1c 03/29/2015 Glycohemoglobin (A1c) 5.5 % 4.2-6.3 74 eAG 111 mg/dL Laboratory test finding 03/29/2015 Estimated Average Glucose (eAG) 111 Estimated GFR () 50 >60 Estimated GFR (Non- 41 >60 Hemoglobin A1c 5.5 4.2-6.3 Sodium Level 138 136-145 Laboratory test finding 02/21/2015 CK 1839 U/L High 26-192 75 Troponin-I < 0.015 ng/mL 76 Acetaminophen < 2.0 ug/mL Low 10.0-30.0 77 Salicylate 4.1 mg/dL 2.8-20.0 78 Ethyl Alcohol < 3.0 mg/dL CBC W/Automated Diff 02/21/2015 White Blood Count 7.4 K/uL 3.1-10.7 Red Blood Count 3.38 M/uL Low 3.90-5.40 Hemoglobin 10.7 gm/dL Low 11.6-15.8 Hematocrit 32.1 % Low 36.0-46.1 Mean Cell Volume 95.0 fl 80.9-99.0 Mean Corpuscular HGB 31.7 pg 25.9-32.7 Mean Corpuscular HGB Conc 33.3 g/dL 30.8-34.3 Platelet Count 231 K/uL 155-360 Red Cell Distri Width SD 42.8 fl 3-47 Red Cell Distri Width %CV 12.9 % 11.7-14.4 Mean Platelet Volume 10.5 fL 8.9-12.4 Neut% 67.0 % 40.4-72.8 Lymph % 23.9 % 17.0-46.1 Garland % 7.9 % 4.3-13.2 Eo% 0.9 % 0.0-6.6 Bas% 0.3 % 0.0-1.1 Neut# 4.98 K/uL 1.0-7.0 Lymph # 1.78 K/uL Low 1.8-7.0 Garland # 0.59 K/uL 0.3-0.9 Eos # 0.07 K/uL 0.0-0.5 Baso # 0.02 K/uL 0.0-0.1 Protime 02/21/2015 Protime 13.4 seconds 12.1-14.9 Inr 1.0 0.9-1.1 79 Laboratory test 02/21/2015 Daisy < 0.20 mmol/L Low 0.60-1.20 80 finding Drugs Of 02/21/2015 Amphetamines (Urine) Negative Abuse-Urine Screen 7 Barbiturates (Urine) Negative Benzodiazepines (Urine) POSITIVE High Cannabinoids (Urine) Negative Cocaine Metabolite (Urine) Negative Methadone (Urine) Negative Opiates (Urine) Negative Urine Cutoffs * 81 Please Note # 82 Urinalysis With Microscopic 02/21/2015 Urine Color YELLOW Yellow Urine Clarity SL CLOUDY Clear Urine Glucose - Dipstick NEGATIVE mg/dL Negative Urine Bilirubin - Dipstick NEGATIVE Negative Urine Ketone NEGATIVE mg/dL Negative Urine Specific [place] >=1.030 1.010-1.030 Urine Blood MODERATE High Negative Urine PH 5.5 Low 6.5-7.5 Urine Protein - Dipstick 30 mg/dL High Negative Urine Urobilinogen - Dipstick 0.2 E.U./dL 0.2-1.0 Urine Nitrite - Dipstick NEGATIVE Negative Urine Leuk Esterase NEGATIVE Negative Urine RBC 0-2 rbc/hpf 0-2 Urine WBC 0-2 wbc/hpf 0-7 Urine Epithelial Cells MODERATE NONESEEN/lpf 83 Urine Bacteria VERY FEW NONESEEN Urine Amorph Sediment MODERATE Negative Comprehensive Metabolic Panel 02/21/2015 Glucose 92 mg/dL 74-106 BUN 97 mg/dL High 7-18 Creatinine 7.3 mg/dL High 0.6-1.3 Glom Filtration Rate, Estimate 6 mL/min >60 If 7 mL/min >60 84 BUN/Creat 13.2 ratio Sodium 136 mmol/L 136-145 Potassium 5.8 mmol/L High 3.5-5.1 Chloride 106 mmol/L 98-107 Carbon Dioxide 22 mmol/L 21-32 Anion Gap 8 mEq/L 8-16 Calcium 9.0 mg/dL 8.5-10.1 Total Protein 6.8 g/dL 6.4-8.2 Albumin 3.1 g/dL Low 3.4-5.0 Globulin 3.7 g/dL 1.9-4.3 Alb/Glob 0.8 ratio Bilirubin,Total 0.3 mg/dL 0.2-1.0 Sgot/Ast 58 U/L High 15-37 SGPT/Alt 56 U/L 12-78 Alkaline Phosphatase 108 U/L 45-117 Laboratory test finding 02/21/2015 Urine Screen See Note 85 Arterial Blood Gas 02/21/2015 Vidal's Test Performed? YES Arterial Blood Gas pH 7.25 Low 7.35-7.45 Arterial Blood Gas Pco2 43 mmHg 35-45 Arterial Blood Gas Po2 98 mmHg 80-105 ABG Hco3 19 mEq/L Low 22-26 ABG Base Excess -8 mEq/L Low -2-2 ABG O2 Saturation 97 % 90-99 Arterial Blood Gas Type OXYGEN Arterial Blood Gas L/M 2.5 L/MIN 0-20 Arterial Blood Gas Del. N/C Arterial Blood Gas Site L.RAD.ART. Laboratory test finding 02/21/2015 Ammonia < 10 umol/L Low 11-32 Laboratory test finding 02/21/2015 Aot Request Test(s) added 86 1 E55.9, I10, Z79.899 2 Vitamin D deficiency has been defined by the [place] [employer] and an Endocrine Society practice guideline as a level of serum 25-OH vitamin D less than 20 ng/mL (1,2). The Endocrine Society went on to further define vitamin D insufficiency as a level between 21 and 29 ng/mL (2). 1. IOM ([employer]). 2010. Dietary reference intakes for calcium and D. [place]: The National Academies Press. 2. Jared MF, Sharon NC, Emeka BUSBY, et al. Evaluation, treatment, and prevention of vitamin D deficiency: an Endocrine Society clinical practice guideline. JCEM. 2011 Jan; 96(7):1911-30. Performed at: [facility] - [address] [id number] Flight [employer] Time Clerk: Lina Mcghee MD, Phone: [phone] 3 This test was developed and its performance characteristics determined by [employer]. It has not been cleared or approved by the Food and Drug Administration. 4 Note: Persistent reduction for 3 months or more in an eGFR <60 mL/min/1.73 m2 defines CKD. Patients with eGFR values >/=60 mL/min/1.73 m2 may also have CKD if evidence of persistent proteinuria is present. The original MDRD equation for estimated GFR is not valid for patients less than 18 years of age. Additional information may be found at www.kdoqi.org. 5 Values below the stated reference ranges of AST and ALT can be seen in normal populations. Clinical correlation is suggested. 6 Detection Limit=1.0 Performed at: [facility] [address] [id number] [employer] Time Clerk: Al Anderson MD, Phone: [phone] 7 R74.8 E11.9 G47.62 G25.81 E55.9 R74.8 E11.9 G47.62 G25.81 E55.9 F20.0 Z79.899 R74.8 E11.9 G47.62 G25.81 E55.9 F20.0 Z79.899 R74.8 E11.9 G47.62 G25.81 E55.9 F20.0 Z79.899 8 05/30/17 1410: GABAPENTIN previously reported as: mcg/mL Performed at: [facility] [address] [id number] [employer] Time Clerk: Lina Mcghee MD, Phone: [phone] Performed at: [address] [id number] [employer] Time Clerk: Al Anderson MD, Phone: [phone] Amended result called to: [] - 05/30/17 at 1410 Detection Limit=1.0 Performed at: [facility] [address] [id number] [employer] Time Clerk: Lina Mcghee MD, Phone: [phone] Performed at: [address] [id number] [employer] Time Clerk: Al Anderson MD, Phone: [phone] 9 UPPER RIGHT LEG SEVERE PAIN, NAUSEA 10 URINE, CLEAN CATCH 11 A negative result for either C. trachomatis and/or N. gonorrhoeae does not preclued an infection because results are dependent on adequate specimen collection, absence of inhibitors, and sufficient DNA to be detected. 12 R74.8 E11.9 G47.62 G25.81 E55.9 R74.8 E11.9 G47.62 G25.81 E55.9 F20.0 Z79.899 R74.8 E11.9 G47.62 G25.81 E55.9 F20.0 Z79.899 R74.8 E11.9 G47.62 G25.81 E55.9 F20.0 Z79.899 13 Note: Persistent reduction for 3 months or more in an eGFR <60 mL/min/1.73 m2 defines CKD. Patients with eGFR values >/=60 mL/min/1.73 m2 may also have CKD if evidence of persistent proteinuria is present. The original MDRD equation for estimated GFR is not valid for patients less than 18 years of age. Additional information may be found at www.kdoqi.org. 14 Values below the stated reference ranges of AST and ALT can be seen in normal populations. Clinical correlation is suggested. 15 Protein electrophoresis scan will follow via computer, mail, or aesthetics instructor delivery. 06/01/17 0242: Please Note: previously reported as: Protein electrophoresis scan will follow via computer, mail, or aesthetics instructor delivery. 16 The SPE pattern appears essentially unremarkable. Evidence of monoclonal protein is not apparent. 05/30/17 1410: Yuliana Faulkner previously reported as: The SPE pattern appears essentially unremarkable. Evidence of monoclonal protein is not apparent. Performed at: - [address] [id number] [employer] Time Clerk: Lina Mcghee MD, Phone: [phone] Amended result called to: [] - 05/30/17 at 1410 17 Reference Guidelines*: Desirable: ........... < 200 mg/dL Borderline High: ..... 200-239 mg/dL High: ................ >=240 mg/dL * The National Cholesterol Education Program (NCEP) 18 Reference Guidelines*: Normal: ............. < 150 mg/dL Borderline High: .... 150-199 mg/dL High: ............... 200-499 mg/dL Very High: .......... > 500 mg/dL * Source: National Cholesterol Education Program (NCEP) 19 Reference Guidelines*: Low HDL: ..... < 40 mg/dL Normal: ..... 40-60 mg/dL Desirable: ... > 60 mg/dL *The National Cholesterol Education Program(NCEP) 20 Reference Guidelines*: Optimal:........... <100 mg/dL Near Optimal....... 100-129 mg/dL Borderline High.... 130-159 mg/dL High............... 160-189 mg/dL Very High.......... >=190 mg/dL * Source: National Cholesterol Education Program (NCEP) 21 Vitamin D deficiency has been defined by the [employer] and an Endocrine Society practice guideline as a level of serum 25-OH vitamin D less than 20 ng/mL (1,2). The Endocrine Society went on to further define vitamin D insufficiency as a level between 21 and 29 ng/mL (2). 1. IOM ([employer]). 2010. Dietary reference intakes for calcium and D. [place]: The National Academies Press. 2. Jared MF, Sharon NUR, Emeka BUSBY, et al. Evaluation, treatment, and prevention of vitamin D deficiency: an Endocrine Society clinical practice guideline. JCEM. 2010; 96(7):1911-30. Performed at: RN - [facility] [address] [id number] [employer] Time Clerk: Lina Mcghee MD, Phone: [phone] 22 Elevated levels of HbA1c suggest the need for more aggressive treatment of glycemia. The Citizen [place] Diabetes Association recommends that a primary goal of therapy should be a HbA1c of <7% and that physicians should re-evaluate the treatment regimen in patients with HbA1c values consistently >8%. 23 EVAL 24 URINE SPECIMENS ARE SCREENED AT THE LISTED CUTOFFS DRUG CLASS INITIAL TEST LEVEL Amphetamines 1000 ng/mL Barbiturates 200 ng/mL Benzodiazepines 200 ng/mL Cannabinoids 50 ng/mL Cocaine Metabolite 300 ng/mL Methadone 300 ng/mL Opiates 300 ng/mL Any PRESUMPTIVE POSITIVE findings are UNCONFIRMED. Confirmatory testing is suggested if findings are unexpected. Please contact laboratory if confirmatory testing is desired. SPECIMENS ARE HELD FOR 72 HOURS. 25 URINE, CLEAN CATCH 26 THERAPEUTIC RANGE: 15-30 mg/dL POTENTIAL TOXICITY VARIES WITH TIME FROM INGESTION. PLEASE CONSULT APPROPRIATE NOMOGRAM. 27 Acetaminophen concentration >150 ug/mL at four hours after ingestion and 50.0 ug/mL at twelve hours after ingestion are often associated with toxic reactions. 28 Note: Persistent reduction for 3 months or more in an eGFR <60 mL/min/1.73 m2 defines CKD. Patients with eGFR values >/=60 mL/min/1.73 m2 may also have CKD if evidence of persistent proteinuria is present. The original MDRD equation for estimated GFR is not valid for patients less than 18 years of age. Additional information may be found at www.kdoqi.org. 29 Values below the stated reference ranges of AST and ALT can be seen in normal populations. Clinical correlation is suggested. 30 [facility] 31 Reference Guidelines*: Desirable: ........... < 200 mg/dL Borderline High: ..... 200-239 mg/dL High: ................ >=240 mg/dL * The National Cholesterol Education Program (NCEP) 32 Reference Guidelines*: Normal: ............. < 150 mg/dL Borderline High: .... 150-199 mg/dL High: ............... 200-499 mg/dL Very High: .......... > 500 mg/dL * Source: National Cholesterol Education Program (NCEP) 33 Reference Guidelines*: Low HDL: ..... < 40 mg/dL Normal: ..... 40-60 mg/dL Desirable: ... > 60 mg/dL *The National Cholesterol Education Program(NCEP) 34 Reference Guidelines*: Optimal:........... <100 mg/dL Near Optimal....... 100-129 mg/dL Borderline High.... 130-159 mg/dL High............... 160-189 mg/dL Very High.......... >=190 mg/dL * Source: National Cholesterol Education Program (NCEP) 35 Performed at: - [facility] [id number] [employer] Time Clerk: Al Anderson MD, Phone: [phone] 36 MENTAL HEALTH EVAL 37 URINE, CLEAN CATCH 38 URINE SPECIMENS ARE SCREENED AT THE LISTED CUTOFF[facility] CLASS INITIAL TEST LEVEL Amphetamines 1000 ng/mL Barbiturates 200 ng/mL Benzodiazepines 200 ng/mL Cannabinoids 50 ng/mL Cocaine Metabolite 300 ng/mL Methadone 300 ng/mL Opiates 300 ng/mL Any PRESUMPTIVE POSITIVE findings are UNCONFIRMED. Confirmatory testing is suggested if findings are unexpected. Please contact laboratory if confirmatory testing is desired. SPECIMENS ARE HELD FOR 72 HOURS. 39 THERAPEUTIC RANGE: 15-30 mg/dL POTENTIAL TOXICITY VARIES WITH TIME FROM INGESTION. PLEASE CONSULT APPROPRIATE NOMOGRAM. 40 Reference Guidelines*: Desirable: ........... < 200 mg/dL Borderline High: ..... 200-239 mg/dL High: ................ >=240 mg/dL * The National Cholesterol Education Program (NCEP) 41 Reference Guidelines*: Normal: ............. < 150 mg/dL Borderline High: .... 150-199 mg/dL High: ............... 200-499 mg/dL Very High: .......... > 500 mg/dL * Source: National Cholesterol Education Program (NCEP) 42 Reference Guidelines*: Low HDL: ..... < 40 mg/dL Normal: ..... 40-60 mg/dL Desirable: ... > 60 mg/dL *The National Cholesterol Education Program(NCEP) 43 Reference Guidelines*: Optimal:........... <100 mg/dL Near Optimal....... 100-129 mg/dL Borderline High.... 130-159 mg/dL High............... 160-189 mg/dL Very High.......... >=190 mg/dL * Source: National Cholesterol Education Program (NCEP) 44 Note: Persistent reduction for 3 months or more in an eGFR <60 mL/min/1.73 m2 defines CKD. Patients with eGFR values >/=60 mL/min/1.73 m2 may also have CKD if evidence of persistent proteinuria is present. The original MDRD equation for estimated GFR is not valid for patients less than 18 years of age. Additional information may be found at www.kdoqi.org. 45 Values below the stated reference ranges of AST and ALT can be seen in normal populations. Clinical correlation is suggested. 46 Elevated levels of HbA1c suggest the need for more aggressive treatment of glycemia. The [place] Diabetes Association recommends that a primary goal of therapy should be a HbA1c of <7% and that physicians should re-evaluate the treatment regimen in patients with HbA1c values consistently >8%. 47 Vitamin D deficiency has been defined by the [employer] and an Endocrine Society practice guideline as a level of serum 25-OH vitamin D less than 20 ng/mL (1,2). The Endocrine Society went on to further define vitamin D insufficiency as a level between 21 and 29 ng/mL (2). 1. IOM ([employer]). 2010. Dietary reference intakes for calcium and D. [place]: The National Academies Press. 2. Jared MF, Sharon [place], Emeka BUSBY, et al. Evaluation, treatment, and prevention of vitamin D deficiency: an Endocrine Society clinical practice guideline. JCEM. 2010; 96(7):1911-30. Performed at: RN - [facility] [address] [id number] Flight Crew Time Clerk: Lina Mcghee MD, Phone: [phone] Negative <1:80 Borderline 1:80 Positive >1:80 Performed at: RN - [facility] [address] [id number] Flight [employer] Time Clerk: Lina Mcghee MD, Phone: [phone] Note: Persistent reduction for 3 months or more in an eGFR <60 mL/min/1.73 m2 defines CKD. Patients with eGFR values >/=60 mL/min/1.73 m2 may also have CKD if evidence of persistent proteinuria is present. The original MDRD equation for estimated GFR is not valid for patients less than 18 years of age. Additional information may be found at www.kdoqi.org. 50 Values below the stated reference ranges of AST and ALT can be seen in normal populations. Clinical correlation is suggested. 51 Note: Persistent reduction for 3 months or more in an eGFR <60 mL/min/1.73 m2 defines CKD. Patients with eGFR values >/=60 mL/min/1.73 m2 may also have CKD if evidence of persistent proteinuria is present. The original MDRD equation for estimated GFR is not valid for patients less than 18 years of age. Additional information may be found at www.kdoqi.org. 52 Values below the stated reference ranges of AST and ALT can be seen in normal populations. Clinical correlation is suggested. 53 Elevated levels of HbA1c suggest the need for more aggressive treatment of glycemia. The [place] Diabetes Association recommends that a primary goal of therapy should be a HbA1c of <7% and that physicians should re-evaluate the treatment regimen in patients with HbA1c values consistently >8%. 54 Reference Guidelines*: Desirable: ........... < 200 mg/dL Borderline High: ..... 200-239 mg/dL High: ................ >=240 mg/dL * The National Cholesterol Education Program (NCEP) 55 Reference Guidelines*: Normal: ............. < 150 mg/dL Borderline High: .... 150-199 mg/dL High: ............... 200-499 mg/dL Very High: .......... > 500 mg/dL * Source: National Cholesterol Education Program (NCEP) 56 Reference Guidelines*: Low HDL: ..... < 40 mg/dL Normal: ..... 40-60 mg/dL Desirable: ... > 60 mg/dL *The National Cholesterol Education Program(NCEP) 57 Reference Guidelines*: Optimal:........... <100 mg/dL Near Optimal....... 100-129 mg/dL Borderline High.... 130-159 mg/dL High............... 160-189 mg/dL Very High.......... >=190 mg/dL * Source: National Cholesterol Education Program (NCEP) 58 Note: Persistent reduction for 3 months or more in an eGFR <60 mL/min/1.73 m2 defines CKD. Patients with eGFR values >/=60 mL/min/1.73 m2 may also have CKD if evidence of persistent proteinuria is present. The original MDRD equation for estimated GFR is not valid for patients less than 18 years of age. Additional information may be found at www.[email or web address]. 59 Values below the stated reference ranges of AST and ALT can be seen in normal populations. Clinical correlation is suggested. 60 <=0.49 ug/mL - Low likelihood of DIC, DVT or Pulmonary Embolism >0.49 ug/mL - Additional testing should be done to rule out DIC, DVT, or Pulmonary embolism as clinically indicated. ([facility] has established a 97.89% negative predictive value for thrombotic disease when a cutoff value of 0.5 ug/mL is used.) 61 Note: Persistent reduction for 3 months or more in an eGFR <60 mL/min/1.73 m2 defines CKD. Patients with eGFR values >/=60 mL/min/1.73 m2 may also have CKD if evidence of persistent proteinuria is present. The original MDRD equation for estimated GFR is not valid for patients less than 18 years of age. Additional information may be found at www.[email or web address]. 62 Values below the stated reference ranges of AST and ALT can be seen in normal populations. Clinical correlation is suggested. 63 Reference Guidelines*: Desirable: ........... < 200 mg/dL Borderline High: ..... 200-239 mg/dL High: ................ >=240 mg/dL * The National Cholesterol Education Program (NCEP) 64 Reference Guidelines*: Normal: ............. < 150 mg/dL Borderline High: .... 150-199 mg/dL High: ............... 200-499 mg/dL Very High: .......... > 500 mg/dL * Source: National Cholesterol Education Program (NCEP) 65 Reference Guidelines*: Low HDL: ..... < 40 mg/dL Normal: ..... 40-60 mg/dL Desirable: ... > 60 mg/dL *The National Cholesterol Education Program(NCEP) 66 Reference Guidelines*: Optimal:........... <100 mg/dL Near Optimal....... 100-129 mg/dL Borderline High.... 130-159 mg/dL High............... 160-189 mg/dL Very High.......... >=190 mg/dL * Source: National Cholesterol Education Program (NCEP) 67 Note: Persistent reduction for 3 months or more in an eGFR <60 mL/min/1.73 m2 defines CKD. Patients with eGFR values >/=60 mL/min/1.73 m2 may also have CKD if evidence of persistent proteinuria is present. The original MDRD equation for estimated GFR is not valid for patients less than 18 years of age. Additional information may be found at www.[email or web address]. 68 Values below the stated reference ranges of AST and ALT can be seen in normal populations. Clinical correlation is suggested. 69 Elevated levels of HbA1c suggest the need for more aggressive treatment of glycemia. The [place] Diabetes Association recommends that a primary goal of therapy should be a HbA1c of <7% and that physicians should re-evaluate the treatment regimen in patients with HbA1c values consistently >8%. 70 Performed at: [facility] - [facility] [address] [id number] Flight Crew Time Clerk: Lina Mcghee MD, Phone: [phone] PENDING; TEST PERFORMED ON MONDAYS AND THURSDAYS 72 Note: Persistent reduction for 3 months or more in an eGFR <60 mL/min/1.73 m2 defines CKD. Patients with eGFR values >/=60 mL/min/1.73 m2 may also have CKD if evidence of persistent proteinuria is present. The original MDRD equation for estimated GFR is not valid for patients less than 18 years of age. Additional information may be found at www.[email or web address]. 73 Values below the stated reference ranges of AST and ALT can be seen in normal populations. Clinical correlation is suggested. 74 Elevated levels of HbA1c suggest the need for more aggressive treatment of glycemia. The Citizen [place] Diabetes Association recommends that a primary goal of therapy should be a HbA1c of <7% and that physicians should re-evaluate the treatment regimen in patients with HbA1c values consistently >8%. 75 Result confirmed by repeat analysis. 76 0.0 - 0.045 ng/mL: Normal 0.046 - 0.5 ng/mL: Suggestive 0.6 - 1.5 ng/mL: Consistent 77 Acetaminophen concentration >150 ug/mL at four hours after ingestion and 50.0 ug/mL at twelve hours after ingestion are often associated with toxic reactions. 78 THERAPEUTIC RANGE: 15-30 mg/dL POTENTIAL TOXICITY VARIES WITH TIME FROM INGESTION. PLEASE CONSULT APPROPRIATE NOMOGRAM. 79 THERAPEUTIC INR RANGE: 2.0 - 3.0 DVT, Pulmonary embolus, prophylaxis against venous thrombosis or systemic embolization in high risk patients. 2.5 - 3.5 Mechanical heart valves 80 Result confirmed by repeat analysis. 81 *THE SUBMITTED URINE SPECIMEN WAS SCREENED AT THE LISTED CUTOFFS DRUG CLASS INITIAL TEST LEVEL Amphetamines 1000 ng/mL Barbiturates 200 ng/mL Benzodiazepines 200 ng/mL Cannabinoids 50 ng/mL Cocaine Metabolite 300 ng/mL Methadone 300 ng/mL Opiates 300 ng/mL 82 #THIS URINE SPECIMEN SCREENED POSITIVE FOR ONE OF MORE DRUG CLASSES. POSITIVE FINDINGS ARE UNCONFIRMED. CONFIRMATORY TESTING IS SUGGESTED IF FINDINGS ARE UNEXPECTED. PLEASE CONTACT THE LABORATORY IF CONFIRMATORY TESTING IS DESIRED. 83 POSSIBLE UROGENITAL CONTAMINATION. 84 Note: Persistent reduction for 3 months or more in an eGFR <60 mL/min/1.73 m2 defines CKD. Patients with eGFR values >/=60 mL/min/1.73 m2 may also have CKD if evidence of persistent proteinuria is present. The original MDRD equation for estimated GFR is not valid for patients less than 18 years of age. Additional information may be found at [email or web address]. 85 02/21/15 LAB.RAP Deleted by [facility] 86 Tests: lithium Instructions: Procedures Date CPT Code Description Status Comment 07/01/2016 25 Disability Form Completed 11/18/2015 Mammogram Completed Q 2 year schedule 10/11/2015 46617 Eye Exam New Patient Comprehensive Completed 05/08/2014 Asp./Injection major joint Completed 09/15/2013 Colonoscopy Completed 05/23/2012 90986 Echocardiogram Complete Completed 10/02/2008 92109 Echocardiogram Complete Completed 10/02/2008 18293 EKG Interpretation And Report Only Completed 2006 Aspiration/Injection joint Completed intermediate(wrist/ankle/elbow/olbur sa 07/30/2006 Asp./Injection major joint Completed 07/16/2006 Asp./Injection major joint Completed 07/10/2006 Asp./Injection major joint Completed 07/03/2006 Asp./Injection major joint Completed 04/08/2006 Asp./Injection major joint Completed Encounters Type Date Location Provider CPT E/M Dx Office Visit 09/23/2017 10:40a Primary [facility] Office Mariluz Martinez M.D. 93710 I10 E55.9 E78.5 Z79.899 G89.4 J44.9 Office Visit 09/03/2017 11:20a [facility] Office Mariluz Martinez M.D. 76204 M54.5 M54.2 I10 J20.9 J44.9 R05 J01.90 Office Visit 08/12/2017 1:20p Primary [facility] Office Mariluz Martinez M.D. 11175 J44.9 J20.9 I10 M79.7 F41.9 K21.9 E78.5 E55.9 Office Visit 06/03/2017 10:00a Primary Care Office Mariluz Martinez M.D. 25342 E55.9 M54.31 Z79.899 I10 R73.09 Office Visit 05/14/2017 1:20p [facility] Office Mariluz Martinez M.D. 59992 F20.0 G89.4 I10 E11.9 J20.9 J44.9 Z79.899 Office Visit 04/13/2017 11:30a Primary Care Office Donya Denton, 15387 M79.7 PA-C M15.9 I10 E11.9 M54.5 E66.9 F41.9 Z23 Office Visit 02/26/2017 11:30a Primary [facility] Office Donya Denton, 22538 M79.7 PA-C F41.9 E11.9 R74.8 I10 Z12.31 Office Visit 07/01/2016 1:30p [facility] Office Donya Denton, 93567 E11.9 PA-C G47.62 M15.9 I10 K58.9 M94.0 G43.909 Z86.73 Z23 Z71.6 F17.200 K21.9 E78.5 J44.9 R74.8 Z13.820 Z79.52 B37.2 Office Visit 02/12/2016 9:30a Primary Care Office Donya Denton, 64517 E11.9 PA-C G47.62 M15.9 I10 K58.9 M94.0 G43.909 Z86.73 M54.5 K21.9 E78.5 J44.9 R74.8 G25.81 J01.90 F41.9 Office Visit 11/13/2015 9:30a Primary Care Office Doyna Denton, 77004 E11.9 PA-C G47.62 M15.9 I10 K58.9 M94.0 G43.909 Z86.73 M54.5 K21.9 E78.5 J44.9 R74.8 G25.81 Z12.31 F17.200 Z71.6 Office Visit 09/25/2015 10:00a Primary Care Office Donya Denton, 62305 G47.62 PA-C M15.9 I10 K58.9 M94.0 G43.909 Z86.73 M54.5 K21.9 E11.9 E78.5 J44.9 Office Visit 08/28/2015 9:15a JOJO Mercedes M.D. 85694 Z23 G47.62 M15.9 I10 K58.9 Office Visit 07/24/2015 11:30a GI Donya Marva Bertin, PA-C 97398 J44.1 J01.90 M94.0 G43.909 I10 Z86.73 K58.9 M54.5 K21.9 E11.9 Office Visit 06/12/2015 2:00p JOJO Denton PA-C 03821 G43.909 I10 Z86.73 K58.9 M54.5 K21.9 E11.9 Office Visit 04/17/2015 1:30p JOJO Denton PA-C 02143 L03.116 R41.3 M54.5 K58.9 K21.9 Z86.73 I10 G43.909 V04.89 E11.9 Office Visit 03/06/2015 11:00a JOJO Denton PA-C 29295 728.88 780.93 724.2 346.90 564.1 530.81 V12.54 401.9 496 300.00 Office Visit 05/08/2014 2:45p [facility] Office Brenda RuedaJohn Komal, 19054 727.82 RPAC 719.41 726.10 Office Visit 05/04/2013 5:26p [facility] Ayaan Buckner M.D. 23493 786.50 [facility] 496 584.9 Plan of Care Future Appointment(s):11/27/2017 1:00 pm - Mariluz Martinez M.D. at [facility]6509/23/2017 - Mariluz Martinez M.D.I10 Essential (primary) hypertensionFollow up:f/u in November 1 week after fasting labsE55.9 Vitamin D deficiency, unspecifiedNew Labs:Vitamin D,25-CxhsiqvK12.5 Hyperlipidemia, unspecifiedNew Labs:HDL CholesterolDirect LDL LlcnmexdtpmGzyltcthzlqxzV98.899 Other intermodal customer service ( current) drug therapyNew Labs:CBS W/Automated DiffComprehensive Metabolic JjgjoOpwwlfrmfX34.4 Chronic pain syndromeFollow up:please check on the status of referral to Dr. Yanez44.9 Chronic obstructive pulmonary disease, unspecified
--- OUTSIDE RECORDS SUMMARY | 2017-10-25 17:36 | XMS REPORT ---
:1955 External Reference #:[id number] Author Organization [facility] Address [address], [address] [place] [address] Phone [phone] Care Team Providers Name Role Phone Mariluz Martinez MD Care Team Information Clay Miner Unavailable Mariluz Martinez MD Primary Care Physician Unavailable Payers Type Date Identification Numbers Payment Provider Subscriber Commercial Policy Number: [id number] Linkus Rishi Romain PayID: [id number] [address] [address] [place] [address] [facility] Policy Number: [id number] [facility] Victorina J Romain PayID: [id number] [address] [place] [address] Medicare Primary Expires: 2013 Policy Number: Medicare Victorina Valdivia Romain [id number] PayID: [id number] [address] [place] [address] Problems Date Description Provider Status Onset: 03/05/2015 [...] Donya Denton PA-C Active Note: Managed by [facility] Onset: 08/28/2015 Coronary arteriosclerosis Jason Mercedes [...] Diet Healthy, Well Balanced 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 nostril daily Propranolol HCL 09/03 [...] as needed M.D. Nystatin 07/01 Active Powder [id number] 180gm apply B37.2 t/GM powder to [facility], affected M.D. area under breasts and abdominal [...] mouth And / s daily in [facility], the morning M.DJohn Eliquis Active Tablets 2.5mg [...] 7 days 07/01 Ergocalciferol 02/11 Hx Capsules 62097Jnrd 12cap 1 capsule Rolando Lott s orally [...] then 2 tablets by mouth (1000 mg) [facility] Nuvigil 09/23 Hx Tablets 150mg 30tab [...] Hx Tablets 5mg 90tab 1 PO daily [facility] Dihydrochlor s Vatra, - M.D. 07/01 Bactrim DS 07/24 Hx Tablets 800-160mg 20tab 1 by mouth s every 12 Vatra, - hours x 10 M.D. Prednisone 07/24 Hx Tablets 20mg 14tab 1 tab PO s bid x 7 Vatra, - days M.D. 08/28 Diabetic Tussin 07/24 Hx Liquid 10-200mg/ 354ml Use as J01.90 [facility] Maximum 5ML directed Vatra, - M.D. 08/28 Gabapentin 07/10 Hx Tablets 800mg 360ta 1 by mouth Rolando Lott /2014 bs 4 times a Paul DO - day 07/01 Topiramate 06/12 Hx Tablets 25mg 60tab 2 by mouth s [facility] Daren, - M.D. 06/12 Tizanidine HCL [...] CPT Code Status Date Vaccine Lot # [id number] Given 04/13/2017 Influenza Virus Vaccine Quadrivalent Iiv4 Split [id number] Preser Free Id [id number] Given 07/01/2016 Influenza Vaccine (Fluzone) Age 3 And Older [id number] 10946 Given 08/28/2015 Td Preservative Free For Use In Individuals 7 Yrs [id number] Or Older 26333 Given 08/28/2015 Pneumococcal Conjugate Vaccine 13 Valent For [id number] Intramuscular Use Q2038 Given 04/17/2015 Influenza Vaccine (Fluzone) Age 3 And Older [id number] Given 04/17/2015 Influenza Vaccine (Fluzone) Age 3 And Older [id number] U-Td Given 03/20/2015 Td(Adult),Unspecified U-Pneum Given 08/03/2014 Pneumococcal,Unspecified [id number] 56917 Given 07/20/2008 Tdap injection U-Tetan Given Unknown Tetanus,Unspecified 35662 Given Unknown Tetnus Injection Vital Signs Date Vital Result Comment 09/23/2017 BP Systolic Sitting Left Arm 136 mmHg BP Diastolic Sitting Left Arm 80 mmHg Heart Rate 77 /min Respiratory Rate 20 /min Height 67 inches 5'7" Weight 244.00 lb BMI (Body Mass Index) 38.2 kg/m2 BSA (Body Surface Area) 2.20 m2 [place] body weight in kilograms 61 O2 % BldC Oximetry 94 % 09/03/2017 BP Systolic 144 mmHg BP Diastolic 77 mmHg Body Temperature 98.5 F Heart Rate 77 /min Respiratory Rate 16 /min Height 67 inches 5'7" Weight 244.00 lb BMI (Body Mass Index) 38.2 kg/m2 BSA (Body Surface Area) 2.20 m2 [place] body weight in kilograms 61 O2 % BldC Oximetry 95 % 08/12/2017 BP Systolic Sitting Right Arm 151 mmHg BP Diastolic Sitting Right Arm 77 mmHg Body Temperature 101.4 F Heart Rate 65 /min Respiratory Rate 20 /min Height 67 inches 5'7" Weight 240.00 lb BMI (Body Mass Index) 37.6 kg/m2 BSA (Body Surface Area) 2.19 m2 [place] body weight in kilograms 61 O2 % BldC Oximetry 92 % 06/03/2017 BP Systolic 150 mmHg BP Diastolic 82 mmHg Heart Rate 60 /min Height 67 inches 5'7" Weight 236.38 lb BMI (Body Mass Index) 37.0 kg/m2 BSA (Body Surface Area) 2.17 m2 [place] body weight in kilograms 61 05/14/2017 BP Systolic 148 mmHg BP Diastolic 72 mmHg Heart Rate 72 /min Respiratory Rate 14 /min Height 67 inches 5'7" Weight 234.38 lb BMI (Body Mass Index) 36.7 kg/m2 BSA (Body Surface Area) 2.16 m2 [place] body weight in kilograms 61 O2 % BldC Oximetry 98 % 04/13/2017 BP Systolic 141 mmHg BP Diastolic 91 mmHg Heart Rate 85 /min Respiratory Rate 16 /min Height 67 inches 5'7" Weight 233.12 lb BMI (Body Mass Index) 36.5 kg/m2 BSA (Body Surface Area) 2.16 m2 [place] body weight in kilograms 61 O2 % BldC Oximetry 95 % 02/26/2017 BP Systolic 139 mmHg BP Diastolic 69 mmHg Heart Rate 63 /min Respiratory Rate 14 /min Height 67 inches 5'7" Weight 223.12 lb BMI (Body Mass Index) 34.9 kg/m2 BSA (Body Surface Area) 2.12 m2 [place] body weight in kilograms 61 O2 % [...] 1 Lymph % 37.3 % 20.0-42.0 1 [place] % 5.8 % 4.3-13.2 1 Eo% 2.1 % 0.0-6.6 1 Bas% 0.3 % 0.0-1.1 1 Neut# 4.11 K/uL 1.8-7.0 1 Lymph # 2.81 K/uL 1.0-4.0 1 S[place]ent # 0.44 K/uL 0.3-0.9 1 Eos # [...] Ketone NEGATIVE mg/dL Negative 9 Urine Specific [place] 1.010 1.010-1.030 9 Urine Blood NEGATIVE Negative [...] 6.0-8.5 12 Albumin 3.6 g/dL 2.9-4.4 12 Lidgc-2-Hcnxlmkd 0.3 g/dL 0.0-0.4 12 Shint-6-Xyduxtak 1.0 g/dL 0.4-1.0 12 Beta Globulin 1.1 [...] Ketone NEGATIVE mg/dL Negative 23 Urine Specific [place] 1.020 1.010-1.030 23 Urine Blood NEGATIVE Negative [...] 23 Lymph % 38.3 % 20.0-42.0 23 [place]ent % 7.2 % 4.3-13.2 23 Eo% 1.6 % 0.0-6.6 23 Bas% 0.1 % 0.0-1.1 23 Neut# 4.56 K/uL 1.8-7.0 23 Lymph # 3.31 K/uL 1.0-4.0 23 S[place]ent # 0.62 K/uL 0.3-0.9 23 Eos # [...] 04/16/2017 Treponema Antibody Negative Negative 30, 35 [place] Ua RFX Micro & 04/15/2017 Urine Color YELLOW Yellow 36 Culture II Urine Clarity CLEAR Clear 36 Urine Glucose - Dipstick NEGATIVE mg/dL Negative 36 Urine Bilirubin - Dipstick NEGATIVE Negative 36 Urine Ketone NEGATIVE mg/dL Negative 36 Urine Specific [place] <=1.005 Low 1.010-1.030 36 Urine Blood NEGATIVE [...] 36 Lymph % 29.1 % 20.0-42.0 36 [place]ent % 5.7 % 4.3-13.2 36 Eo% 1.0 % 0.0-6.6 36 Bas% 0.3 % 0.0-1.1 36 Neut# 4.70 K/uL 1.8-7.0 36 Lymph # 2.14 K/uL 1.0-4.0 36 [place]ent # 0.42 K/uL 0.3-0.9 36 Eos # [...] Estimated GFR (Non- 54 >60 Citizen [place] RDW Coefficient of Variation 13.5 11.7-14.4 Sodium [...] % 40.4-72.8 Lymph % 23.9 % 17.0-46.1 [place] % 7.9 % 4.3-13.2 Eo% 0.9 % 0.0-6.6 Bas% 0.3 % 0.0-1.1 Neut# 4.98 K/uL 1.0-7.0 Lymph # 1.78 K/uL Low 1.8-7.0 [place]ent # 0.59 K/uL 0.3-0.9 Eos # 0.07 K/uL 0.0-0.5 Baso # 0.02 K/uL 0.0-0.1 Protime 02/21/2015 Protime 13.4 seconds 12.1-14.9 Inr 1.0 0.9-1.1 79 Laboratory test 02/21/2015 [place] < 0.20 mmol/L Low 0.60-1.20 80 finding [...] Urine Ketone NEGATIVE mg/dL Negative Urine Specific [place] >=1.030 1.010-1.030 Urine Blood MODERATE High Negative [...] D deficiency has been defined by the [place] of [employer] and an Endocrine Society practice guideline as a level of serum 25-OH vitamin D less than 20 ng/mL (1,2). The Endocrine Society went on to further define vitamin D insufficiency as a level between 21 and 29 ng/mL (2). 1. IOM ([place] of [employer]). 2010. Dietary reference intakes for calcium and D. [place]: The National Academies Press. 2. Jared MF, Sharon NC, Emeka BUSBY, et al. Evaluation, treatment, and prevention of vitamin D deficiency: an Endocrine Society clinical practice guideline. JCEM. 2011 Jan; 96(7):1911-30. Performed at: [facility] - [facility] [id number] Senior Tax Accountant: Lina Mcghee MD, Phone: [phone] This test was developed and its performance characteristics determined by [facility]. It has not been cleared or approved [...] is suggested. 6 Detection Limit=1.0 Performed at: [facility] [address] [id number] Senior Tax Accountant: Al Anderson MD, Phone: [phone] R74.8 E11.9 G47.62 G25.81 E55.9 R74.8 E11.9 G47.62 G25.81 E55.9 F20.0 Z79.899 R74.8 E11.9 G47.62 G25.81 E55.9 F20.0 Z79.899 R74.8 E11.9 G47.62 G25.81 E55.9 F20.0 Z79.899 8 05/30/17 1410: GABAPENTIN previously reported as: mcg/mL Performed at: [facility] [address] [id number] Senior Tax Accountant: Lina Mcghee MD, Phone: [phone] Performed at: [address] [id number] Senior Tax Accountant: Al Anderson MD, Phone: [phone] Amended result called to: [] - 05/30/17 at 1410 Detection Limit=1.0 Performed at: [facility] [address] [id number] Senior Tax Accountant: Lina Mcghee MD, Phone: [phone] Performed at: [address] [id number] Senior Tax Accountant: Al Anderson MD, Phone: [phone] UPPER RIGHT LEG SEVERE PAIN, NAUSEA [...] scan will follow via computer, mail, or spring forger delivery. 06/01/17 0242: Please Note: previously reported as: Protein electrophoresis scan will follow via computer, mail, or spring forger delivery. 16 The SPE pattern appears essentially unremarkable. Evidence of monoclonal protein is not apparent. 05/30/17 1410: Yuliana Faulkner previously reported as: The SPE pattern appears essentially unremarkable. Evidence of monoclonal protein is not apparent. Performed at: - [facility] [id number] Senior Tax Accountant: Lina Mcghee MD, Phone: [phone] Amended result called to: [] - 05/30/17 [...] D deficiency has been defined by the [place] of [employer] and an Endocrine Society practice guideline as a level of serum 25-OH vitamin D less than 20 ng/mL (1,2). The Endocrine Society went on to further define vitamin D insufficiency as a level between 21 and 29 ng/mL (2). 1. IOM ([place] [employer]). 2010. Dietary reference intakes for calcium and D. [place]: The National Academies Press. 2. Jared MF, Sharon NUR, Emeka BUSBY, et al. Evaluation, treatment, and prevention of vitamin D deficiency: an Endocrine Society clinical practice guideline. JCEM. 2010; 96(7):1911-30. Performed at: RN - [facility] [address] [id number] Senior Tax Accountant: Lina Mcghee MD, Phone: [phone] Elevated levels of HbA1c suggest the need for more aggressive treatment of glycemia. The [place] Diabetes Association recommends that a primary goal [...] Education Program (NCEP) 35 Performed at: - [facility] [id number] Senior Tax Accountant: Al Anderson MD, Phone: [phone] MENTAL HEALTH EVAL 37 URINE, CLEAN [...] aggressive treatment of glycemia. The [place] Diabetes Association recommends that a primary goal of therapy should be a HbA1c of <7% and that physicians should re-evaluate the treatment regimen in patients with HbA1c values consistently >8%. 47 Vitamin D deficiency has been defined by the [place] of [place] and an Endocrine Society practice guideline as a level of serum 25-OH vitamin D less than 20 ng/mL (1,2). The Endocrine Society went on to further define vitamin D insufficiency as a level between 21 and 29 ng/mL (2). 1. IOM ([place] [employer]). 2010. Dietary reference intakes for calcium and D. [place]: The National Academies Press. 2. Jared MF, [place], Emeka BUSBY, et al. Evaluation, treatment, and prevention of vitamin D deficiency: an Endocrine Society clinical practice guideline. JCEM. 2010; 96(7):1911-30. Performed at: RN - [facility] [address] [id number] Senior Tax Accountant: Lina Mcghee MD, Phone: [phone] Negative <1:80 Borderline 1:80 Positive >1:80 Performed at: RN - [facility] [address] [id number] Senior Tax Accountant: Lina Mcghee MD, Phone: [phone] Note: Persistent reduction for 3 months [...] aggressive treatment of glycemia. The [place] Diabetes Association recommends that a primary goal [...] DVT, or Pulmonary embolism as clinically indicated. ([facility] has established a 97.89% negative predictive value [...] aggressive treatment of glycemia. The [place] Diabetes Association recommends that a primary goal of therapy should be a HbA1c of <7% and that physicians should re-evaluate the treatment regimen in patients with HbA1c values consistently >8%. 70 Performed at: [facility] - [facility] [address] [id number] Senior Tax Accountant: Lina Mcghee MD, Phone: [phone] PENDING; TEST PERFORMED ON MONDAYS AND [...] aggressive treatment of glycemia. The [place] Diabetes Association recommends that a primary goal [...] Mammogram Completed Q 2 year schedule 10/11/2015 79272 Eye Exam New Patient Comprehensive Completed 05/08/2014 Asp./Injection major joint Completed 09/15/2013 Colonoscopy Completed 05/23/2012 50178 Echocardiogram Complete Completed 10/02/2008 55662 Echocardiogram Complete Completed 10/02/2008 75731 EKG Interpretation And Report Only Completed 2006 Aspiration/Injection joint Completed intermediate(wrist/ankle/elbow/olbur sa 07/30/2006 Asp./Injection major joint Completed 07/16/2006 Asp./Injection major joint Completed 07/10/2006 Asp./Injection major joint Completed 07/03/2006 Asp./Injection major joint Completed 04/08/2006 Asp./Injection major joint Completed Encounters Type Date Location Provider CPT E/M Dx Office Visit 09/23/2017 10:40a Primary Care Office Mariluz Martinez M.D. 39578 I10 E55.9 E78.5 Z79.899 G89.4 J44.9 Office Visit 09/03/2017 11:20a Primary Care Office Mariluz Martinez M.D. 42300 M54.5 M54.2 I10 J20.9 J44.9 R05 J01.90 Office Visit 08/12/2017 1:20p Primary Care Office Mariluz Martinez M.D. 74342 J44.9 J20.9 I10 M79.7 F41.9 K21.9 E78.5 E55.9 Office Visit 06/03/2017 10:00a Primary Care Office Mariluz Martinez M.D. 59008 E55.9 M54.31 Z79.899 I10 R73.09 Office Visit 05/14/2017 1:20p Primary Care Office Mariluz Martinez M.D. 78157 F20.0 G89.4 I10 E11.9 J20.9 J44.9 Z79.899 Office Visit 04/13/2017 11:30a Primary Care Office Donya Denton, 20818 M79.7 PA-C M15.9 I10 E11.9 M54.5 E66.9 F41.9 Z23 Office Visit 02/26/2017 11:30a Primary Care Office Donya Denton, 95474 M79.7 PA-C F41.9 E11.9 R74.8 I10 Z12.31 Office Visit 07/01/2016 1:30p Primary Care Office Donya Denton, 19871 E11.9 PA-C G47.62 M15.9 I10 K58.9 M94.0 G43.909 Z86.73 Z23 Z71.6 F17.200 K21.9 E78.5 J44.9 R74.8 Z13.820 Z79.52 B37.2 Office Visit 02/12/2016 9:30a Primary Care Office Donya Denton, 96677 E11.9 PA-C G47.62 M15.9 I10 K58.9 M94.0 G43.909 Z86.73 M54.5 K21.9 E78.5 J44.9 R74.8 G25.81 J01.90 F41.9 Office Visit 11/13/2015 9:30a Primary Care Office Donya Denton, 10052 E11.9 PA-C G47.62 M15.9 I10 K58.9 M94.0 G43.909 Z86.73 M54.5 K21.9 E78.5 J44.9 R74.8 G25.81 Z12.31 F17.200 Z71.6 Office Visit 09/25/2015 10:00a Primary Care Office Donya Denton, 64587 G47.62 PA-C M15.9 I10 K58.9 M94.0 G43.909 Z86.73 M54.5 K21.9 E11.9 E78.5 J44.9 Office Visit 08/28/2015 9:15a JOJO Mercedes M.D. 57138 Z23 G47.62 M15.9 I10 K58.9 Office Visit 07/24/2015 11:30a GI Donya Marva Bertin, PA-C 50517 J44.1 J01.90 M94.0 G43.909 I10 Z86.73 K58.9 M54.5 K21.9 E11.9 Office Visit 06/12/2015 2:00p JOJO Denton PA-C 95216 G43.909 I10 Z86.73 K58.9 M54.5 K21.9 E11.9 Office Visit 04/17/2015 1:30p JOJO Denton PA-C 40119 L03.116 R41.3 M54.5 K58.9 K21.9 Z86.73 I10 G43.909 V04.89 E11.9 Office Visit 03/06/2015 11:00a JOJO Denton PA-C 43647 728.88 780.93 724.2 346.90 564.1 530.81 V12.54 401.9 496 300.00 Office Visit 05/08/2014 2:45p Orthopaedic Office Brenda RuedaJohn Komal, 37707 727.82 RPAC 719.41 726.10 Office Visit 05/04/2013 5:26p [facility] Ayaan Buckner M.D. 75581 786.50 [facility] 496 584.9 Plan of Care Future Appointment(s):11/27/2017 1:00 pm - Mariluz Martinez M.D. at Primary Care Sxeyna0909/23/2017 - Mariluz Martinez M.D.I10 Essential (primary) hypertensionFollow up:f/u in November 1 week after fasting labsE55.9 Vitamin D deficiency, unspecifiedNew Labs:Vitamin D,25-DxbhjvqH49.5 Hyperlipidemia, unspecifiedNew Labs:HDL CholesterolDirect LDL KsckpujmzygJcaeridnwosafI57.899 Other staff training and development manager ( current) drug therapyNew Labs:CBS W/Automated DiffComprehensive Metabolic CnftiBogwhvzqnJ13.4 Chronic pain syndromeFollow up:please check on the status of referral to Dr. Yanez44.9 Chronic obstructive pulmonary disease, unspecified
--- NOTE | 2017-10-25 17:59 | UC ---
Shortness of Breath HPI - HPI Summary HPI Summary: 61 yo female with 8 day hx of cough/wheezing and right sided CP no f/c worsening SOB using nebs more frequently - History of Current Complaint Chief Complaint: UCRespiratory Stated Complaint: COPD/DIFFICULTY BREATHING Time Seen by Provider: 10/25/17 17:06 Hx Obtained From: Patient Hx Last Menstrual Period: ablation Onset/Duration: Gradual Onset, Lasting Days Timing: Constant Current Severity: Moderate Dyspnea At: Exertion Alleviating Factors: Bronchodilators Associated Signs & Symptoms: Positive: Cough (Productive) - green sputum, Chest Pain w/Cough - right sided - Allergy/Home Medications Allergies/Adverse Reactions: Allergies Allergy/AdvReac Type Severity Reaction Status Date / Time morphine Allergy Severe respiratory Verified 10/25/17 17:06 Home Medications: Home Medications Albuterol 2.5MG/3ML (0.083%)* [Ventolin 2.5 MG/3 ML NEB.LILLIAN*] 2.5 mg INH Q6H PRN 10/25/17 [History Confirmed 10/25/17] Albuterol Sulfate [Proventil Hfa] 2 inh IN Q4H PRN 10/25/17 [History Confirmed 10/25/17] Apixaban* [Eliquis*] 2.5 mg PO BID 10/25/17 [History Confirmed 10/25/17] Calcium Carbonate [Calcium] 500 mg PO BID 10/25/17 [History Confirmed 10/25/17] Carisoprodol TAB* [Soma TAB*] 350 mg PO TID PRN 10/25/17 [History Confirmed 03/06] Cholecalciferol (Vitamin D3) [Vitamin D3] 1,000 unit PO DAILY 10/25/17 [History Confirmed 10/25/17] DULoxetine DR CAP* [Cymbalta CAP*] 60 mg PO BID 10/25/17 [History Confirmed 03/06] Diazepam TAB(*) [Valium TAB(*)] 10 mg PO TID 10/25/17 [History Confirmed ] Donepezil TAB* [Aricept 5 MG TAB*] 10 mg PO DAILY 10/25/17 [History Confirmed ] Esomeprazole(NF) [NexIUM(NF)] 40 mg PO DAILY 10/25/17 [History Confirmed ] Fluticasone-Salmeterol 500-50* [Advair Diskus 500-50*] 1 puff INH BID 10/25/17 [ History Confirmed 10/25/17] Gabapentin TAB(NF) [Neurontin 600 mg TAB(NF)] 2 tab PO TID 10/25/17 [History Confirmed 10/25/17] Gemfibrozil TAB* [Lopid TAB*] 600 mg PO BID 10/25/17 [History Confirmed ] Modafinil TAB* [Provigil TAB*] 200 mg PO BID 10/25/17 [History Confirmed ] Pregabalin CAP(*) [Lyrica CAP(*)] 100 mg PO TID 10/25/17 [History Confirmed 03/06] Propranolol TAB* [Inderal TAB*] 20 mg PO BID 10/25/17 [History Confirmed ] Ranitidine TAB (NF) [Zantac TAB (NF)] 150 mg PO BID PRN 10/25/17 [History Confirmed 10/25/17] Tiotropium CAP.INH* [Spiriva CAP.INH*] 1 cap.inh INH BID 10/25/17 [History Confirmed 10/25/17] Topiramate TAB(*) [Topamax 100 mg tab] 100 mg PO BID 10/25/17 [History Confirmed 10/25/17] Zinc Tabs 2,000 mg BEDTIME 10/25/17 [History Confirmed 10/25/17] celeCOXIB CAP* [CeleBREX CAP*] 200 mg PO DAILY 10/25/17 [History Confirmed 10/25] cloNIDine TAB* [Catapres 0.1 MG TAB*] 1 mg PO TID 10/25/17 [History Confirmed ] risperiDONE [Risperdal M-Tab-] 8 mg PO BEDTIME 10/25/17 [History Confirmed 10/25] PMH/Surg Hx/FS Hx/Imm Hx Previously Healthy: No Endocrine History: Diabetes Cardiovascular History: Cardiac Disease, Hypertension, Deep Vein Thrombosis Respiratory History: COPD, Asthma, Bronchitis, Pneumonia, Pulmonary Embolism - Surgical History Surgical History: Yes Surgery Procedure, Year, and Place: back surgery x2. uterine ablation - Family History Known Family History: Positive: Hypertension, Diabetes - Social History Alcohol Use: Occasionally Substance Use Type: None Smoking Status (MU): Heavy Every Day Tobacco Smoker Type: Cigarettes Amount Used/How Often: 3/4 to 1 ppd Review of Systems Constitutional: Fatigue Skin: Negative Eyes: Negative ENT: Nasal Discharge Respiratory: Cough Cardiovascular: Chest Pain Gastrointestinal: Negative Genitourinary: Negative Motor: Negative Neurovascular: Negative Musculoskeletal: Negative Neurological: Negative Psychological: Negative All Other Systems Reviewed And Are Negative: Yes Physical Exam Triage Information Reviewed: Yes Appearance: Well-Nourished, Pain Distress Vital Signs: Initial Vital Signs Temp 98.8 F 10/25/17 17:19 Pulse 92 10/25/17 17:19 Resp 25 10/25/17 17:19 BP 157/75 10/25/17 17:19 Pulse Ox 95 10/25/17 17:19 Vital Signs Reviewed: Yes Eyes: Positive: Conjunctiva Clear ENT: Positive: Pharynx normal, Uvula midline. Negative: Nasal congestion, Nasal drainage, Trismus, Muffled voice, Hoarse voice, Sinus tenderness Neck: Positive: Supple, Nontender, No Lymphadenopathy Respiratory: Positive: Accessory muscle use - mild, Wheezing. Negative: Chest non-tender Cardiovascular: Positive: RRR. Negative: Tachycardia Musculoskeletal: Positive: ROM Intact, No Edema Neurological Exam: Normal Neurological: Positive: Alert Psychological Exam: Normal Re-Evaluation - Re-Evaluation First Eval Re-Evaluation Time: 17:46 Change: Unchanged Second Eval Re-Evaluation Time: 18:40 Change: Improved - minimal improvement/declines transfer to [facility] ER Shortness of Breath Dx - Course Course Of Treatment: I suggested transfer to ER for further evaluation. Patient declines. Wishes to be started on antibiotic and prednisone. States she will go to [facility] ER if not improving or if she gets worse. She is aware we are limited in the type of treatment and work up that we can do her. Is aware that her current symptoms my be due to other process other that COPD exacerbation including serious cardiac or pulmonary disease. - Differential Dx/Diagnosis Provider Diagnoses: acute exacerbation of COPD. right sided CP ...suspect musculoskeltal Discharge - Sign-Out/Discharge Documenting (check all that apply): Discharge - Discharge Plan Condition: Fair Disposition: HOME Prescriptions: Amoxicillin/Clavulanate TAB* [Augmentin TAB 875*] 875 mg PO BID #14 tab predniSONE [Deltasone] 40 mg PO DAILY #10 tab Patient Education Materials: Acute Bronchitis (ED) Referrals: Non Staff,Doctor [Medical Doctor] - 1 Day Additional Instructions: use your nebs as directed To ER if symptoms worsen you need to get rechecked tomorrow if not improved by tomorrow I suggest you go to the ER if better or unchanged still get rechecked by your MD - Billing Disposition and Condition Condition: FAIR Disposition: HOME
[2017-10-25] MEDS ORDERED: predniSONE TAB* 20 MG PO ONE (18:36)
[2017-10-25] MEDS ORDERED: Amoxicillin/Clavulanate TAB* 875 MG PO ONE (18:37)
--- NOTE | 2017-10-25 19:04 | RAD ---
INDICATION: Cough and right-sided chest pain x1 week COMPARISON: None TECHNIQUE: PA and lateral views of the chest were obtained. FINDINGS: The heart and mediastinum are normal in size and contour. The lungs are grossly clear. There is no evidence of large pleural effusion. Visualized bones are normal for the patient's age. There is no radiographic evidence of free air beneath the diaphragm IMPRESSION: No radiographic evidence of acute cardiopulmonary disease.
== END 2017-10-25 18:46 | disposition home or self-care (01) ==
LOC: UCCORT 17:04
DX: J44.1 Chronic obstructive pulmonary disease with (acute) exacerbation (principal); R07.9 Chest pain, unspecified; F17.210 Nicotine dependence, cigarettes, uncomplicated; Z88.5 Allergy status to narcotic agent
CPT/HCPCS: 71046; 99203; A9270-GY; G0463; J7512

== ENCOUNTER 2018-01-08 16:48 | Emergency (ER) | payer BC, MEDICARE ==
--- OUTSIDE RECORDS SUMMARY | 2018-01-08 17:06 | XMS REPORT ---
:1955 External Reference #:[id number] Author Organization [facility] 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 Mariluz Martinez MD Primary Care Physician Unavailable Payers Type Date Identification Numbers Payment Provider Subscriber Commercial Policy Number: [id number] Linkus Rishi Romain PayID: [id number] [address] [address] [place] [address] [facility] Policy Number: [id number] [facility] Victorina J Romain PayID: [id number] [address] [place] [address] Medicare Primary Expires: 2013 Policy Number: Medicare Victorina Valdivia Romain [id number] PayID: [id number] [address] [address] [place] [address] Problems Date Description Provider Status Onset: 03/05/2015 [...] Donya Denton PA-C Active Note: Managed by [facility] Onset: 08/28/2015 Coronary arteriosclerosis Jason [...] Diet Healthy, Well Balanced 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, each M.D. nostril daily Propranolol HCL 09/03 Active Tablets 20mg 180ta 1 tablet I10 And bs twice a day Karen Martinez Vitamin D3 06/03 Active Capsules 5000Unit 90cap 1 a day E55.9 Andras Maximum s Karen Martinez Clonidine HCL 04/13 Active Tablets 0.1mg 90tab 1 By Mouth F41.9 And s Three Times Juan, Daily as M.D. Needed Lyrica 03/26 Active Capsules 100mg 90cap take one Mine s capsule by Sacha, mouth three MD times a day maximum daily dose=3 Soma 02/26 Active Tablets 350mg 90tab 1 by mouth M79.7 And s three times Juan, a day M.D. Loratadine 09/22 Active Tablets 10mg 90tab 1 by mouth Dwayne s every day Montes, as needed M.D. Donepezil HCL 09/22 Active Tablets 10mg 90tab 1 By Mouth And s Every Day Karen Martinez Nystatin 07/01 Active Powder [id number] 180gm apply B37.2 And t/GM powder to Juan, affected M.DJohn area under breasts and abdominal folds twice a day Gabapentin 07/01 Active Tablets 600mg 540ta 2 by mouth And bs three times Juan, a day M.D. Ondansetron 07/01 Active Tablets 8mg 90tab 1 tab by Rolando Lott Dispers s mouth every Paul DO 8 hours as needed nausea Proair HFA 06/30 Active Aerosol 108(90Bas 25.5g 2 Rolando Lott e) m inhalations Paul DO mcg/Act every 4 hours as needed Niacin ER 02/11 Active Tablets ER 1000mg 180ta 2 by mouth E78.5 Andras (Antihyperlipide /2015 bs every night valarie Martinez) at bedtime M.DJohn Nebulizer 12/09 Active Kit 1unit as directed Rolando Lott Kit/Tubing/Mouth /2015 s Paul DO piece Restasis 12/09 Active Emulsion 0.05% 60uni 1gtt twice Rolando Lott /2015 ts a day each Paul eye Celebrex 09/24 Active Capsules 200mg 90cap 1 by mouth And s every day Karen Martinez Topiramate 06/12 Active Tablets 100mg 180ta take 1 tab G43.909 And bs twice daily Karen Martinez Gemfibrozil 06/12 Active Tablets 600mg 180ta 1 by mouth Z86.73 And bs twice a day Karen Martinez Diazepam 03/27 Active Tablets 10mg 90tab take 1 And s tablet (10 Juan, mg) by M.D. mouth every 8 hours as needed anxiety mdd 3 Advair Diskus Active Aerosol 500-50mcg 60uni 1 puff Rolando Lott / /Dose ts inhaled Paul twice a day Spiriva Active Capsules 18mcg 90cap 1 cap Rolando Lott Handihaler / s inhaled Paul daily Nexium Active Capsules DR 40mg 90cap 1 by mouth And s daily in [facility], the morning M.D. Acetaminophen Active Tablets 500mg 360ta 2 tabs by Jason Extra Strength / bs mouth every Vatra, 6 hours as M.D. needed Albuterol Active Nebulizer (2.5mg/3M 540ml 1 unit qid Andras Sulfate /0000 L) 0.083% prn Karen Martinez Calcium Active Tablets 600-400mg 180ta 1 tab by Andras Carbonate-Vitami /0000 -Unit bs mouth twice Juan, n D3 a day M.D. Lasix Active Tablets 40mg 90tab 1 by mouth Rolando EJohn / s every day Paul DO as needed edema Risperdal Active Tablets 6mg 1 tab at Unknown 0000 bedtime Modafinil Active Tablets 200mg 60tab take 1 take Andras s by mouth Juan, bid. mdd 2 M.D. tabs Cyclobenzaprine Active Tablets 10mg 90tab 3 times a Andras HCL s day as Juan, directed M.D. Cymbalta Active Caps DR 60mg 180ca 1 By Mouth Andras / Part ps Twice Daily Juan, M.D. Eliquis Active Tablets 2.5mg 60tab 1 Tab By Andras / s Mouth Twice Juan, A Day M.D. Prednisone 09/03 Hx Tablets 20mg 10tab take 3 J44.9 And s tablets on Juan, - day 1 then M.D. 09/23 2 tablet on day 2 and 3 then 1 tablet on day 4 and 5 and a half tablet and day 6 and 7 . Prednisone 08/12 Hx Tablets 20mg 10tab take 3 J44.9 Andras s tablets on , - day 1 then M.D. 09/03 2 tablet on day 2 and 3 then 1 tablet on day 4 and 5 and a half tablet and day 6 and 7 . Doxycycline 08/12 Hx Tablets 100mg 20tab 1 tab by J20.9 Andras Hyclate s mouth twice Juan, - a day for M.D. 09/03 Prednisone 05/14 Hx Tablets 20mg 7tabs take 2 J44.9 tablets on , day 1 and 2 M.D. then 1 tablet on day 3 and 4 then half tablet on day 5 and 6 then stop Doxycycline 05/14 Hx Tablets 100mg 20tab 1 tab by J44.9 Andras Hyclate s mouth twice Juan, a day for M.D. 10 days Lyrica 02/26 Hx Capsules 50mg 90cap 1 by mouth M79.7 s three times Montes, - a day M.D. 03/26 Chantix Starting 07/01 Hx Tablets 0.5mg X 1tabs 0.5 mg po F17.200 Rolando Chavez 11 & 1 mg qd x3 days, Paul ALDRIDGE X 42 then 0.5 mg po bid x4 days; max: 2 mg/day; info: give w/ food; start drug 1wk before quit date. Chantix 07/01 Hx Tablets 1mg 60tab 1 by mouth F17.200 Rolando Lott s twice a day Paul ALDRIDGE Propranolol HCL 07/01 Hx Tablets 40mg 180ta 1 by mouth I10 Rolando Lott bs twice a day Paul ALDRIDGE - 09/03 Prednisone 07/01 Hx Tablets 10mg 21tab 3 by mouth J44.9 Rolando Lion. /2015 s every day x Paul DO - 7 days 05/14 Sulfamethoxazole 07/01 Hx Tablets 800-160mg 14tab 1 by mouth J44.9 Rolando E. /Trimethoprim DS s twice a day Paul DO - x 7 days 05/14 Hydroxyzine 02/11 Hx Capsules 25mg 90cap 1 PO tid F41.9 Rolando Lion. Pamoate /2015 s prn Paul ALDRIDGE - 07/01 Sulfamethoxazole 02/11 Hx Tablets 800-160mg 14tab 1 by mouth J01.90 Rolando Lott /Trimethoprim DS s twice a day Paul ALDRIDGE - x 7 days 07/01 Probiotic 02/11 Hx Capsules 60cap 1-2 J01.90 Rolando Lion. Acidophilus s capsules by Paul ALDRIDGE mouth daily x14 days Prednisone 02/11 Hx Tablets 10mg 21tab 3 by mouth J44.9 Rolando Lott /2015 s every day x Paul ALDRIDGE - 7 days 07/01 Ergocalciferol 02/11 Hx Capsules [id number] 12cap 1 capsule Rolando Lott s orally [...] X 1tabs 0.5 mg po Rolando Lott Month 11 & 1 mg qd x3 days, Paul DO X 42 then 0.5 mg po bid [...] then 2 tablets by mouth (1000 mg) [facility] Nuvigil 09/23 Hx Tablets 150mg 30tab 1 po q am s Vatra, - M.D. 09/24 Oxycodone HCL 08/28 Hx Tablets 15mg 180ta 1 tab by M54.5 bs mouth every Vatra, - 4 hours as M.D. 11/12 needed Propranolol HCL 08/28 Hx Tablets 20mg 60tab 1 tab by I10 s mouth twice Vatra, - a day M.D. 07/01 Levocetirizine 07/24 Hx Tablets 5mg 90tab 1 PO daily Jason Dihydrochlor s Vatra, - M.D. 07/01 Bactrim DS 07/24 Hx Tablets 800-160mg 20tab 1 by mouth s every 12 Vatra, - hours x 10 M.D. Prednisone 07/24 Hx Tablets 20mg 14tab 1 tab PO s bid x 7 Vatra, - days M.D. 08/28 Diabetic Tussin 07/24 Hx Liquid 10-200mg/ 354ml Use as J01.90 [facility] Maximum 5ML directed Vatra, - M.D. 08/28 Gabapentin 07/10 Hx Tablets 800mg 360ta 1 by mouth Rolando Lott /2014 bs 4 times a Paul DO - day 07/01 Topiramate 06/12 Hx Tablets 25mg 60tab 2 by mouth s [facility] Daren, - M.D. 06/12 Tizanidine HCL 06/12 Hx Tablets 4mg 180ta take 2 M54.5 Rolando E. /2014 bs tablets by Paul DO - mouth every 02/26 8 hours as needed Oxycodone HCL 06/12 Hx Tablets 20mg 180ta 1 by mouth M54.5 bs every 4 h Daren, - as needed M.D. 08/28 Risperdal 05/11 Hx Tablets 0.25mg 30tab 2 [...] 90tab 1 by mouth R41.3 s daily Daren - M.D. 07/01 Gabapentin Hx Capsules 400mg 800mg by Unknown / mouth 4x - daily 07/10 Lisinopril Hx Tablets 40mg 180ta 1 by mouth bs twice daily Karen Mercedes Oxycodone HCL Hx Tablets 5mg 10mg by Unknown /0000 mouth every - 8 hours as 03/06 Ventolin HFA Hx Aerosol 108(90Bas 16gm 2 puff prn e) q 4 hours Daren, - mcg/Act M.D. 06/30 Abilify Hx Tablets Unknown /0000 - 03/05 Valium / Hx Tablets 5mg 1 po every Bertin, 6 hours as Donya - needed Marva 03/27 PA-C Vancomycin HCL Hx Solution 1GM/200ML inject 200 Unknown In Dextrose /0000 ml every 24 - hrs 06/11 Keflex Hx Capsules 500mg 1 tab by Unknown /0000 mouth four - times a day 06/11 Aluminum-Magnesi 00 Hx Suspension 200-200-2 by mouth q4 Unknown um-Simethicone /0000 0mg/5ML hours as - needed 06/12 Provigil Hx Tablets 200mg 60tab 1 by mouth Jason /0000 s twice a day Daren - M.DJohn 09/23 Oxycodone HCL Hx Tablets [...] /0000 every day - 09/24 Oxycodone HCL 00 Hx Tablets 15mg 1 po bid Unknown /0000 - 03/23 Oxycontin / Hx Tab ER 12H 20mg 1 po bid Unknown /0000 Abuse-Det - 03/23 Naproxen Hx Tablets 500mg TK 1 T PO Unknown /0000 bid Oxycodone HCL 0000 Hx Tablets 5mg Unknown /0000 Medications Administered in Office Medication Date Status Form Strength Qnty SIG Indications Ordering Provider Depomedrol 80 Administered Injection Brenda S. mg 014 Komal [facility] Immunizations CPT Code Status Date Vaccine Lot # [id number] Given 04/13/2017 Influenza Virus Vaccine Quadrivalent Iiv4 Split [id number] Preser Free Id Q2038 Given 07/01/2016 Influenza Vaccine (Fluzone) Age 3 And Older [id number] Given 08/28/2015 Td Preservative Free For Use In Individuals 7 Yrs [id number] Or Older 98588 Given 08/28/2015 Pneumococcal Conjugate Vaccine 13 Valent For [id number] Intramuscular Use Q2038 Given 04/17/2015 Influenza Vaccine (Fluzone) Age 3 And Older Q2038 Given 04/17/2015 Influenza Vaccine (Fluzone) Age 3 And Older [id number] U-Td Given 03/20/2015 Td(Adult),Unspecified U-Pneum Given 08/03/2014 Pneumococcal,Unspecified [id number] 89545 Given 07/20/2008 Tdap injection U-Tetan Given Unknown Tetanus,Unspecified 99300 Given Unknown Tetnus Injection Vital Signs Date Vital Result Comment 11/27/2017 BP Systolic Sitting Right Arm 127 mmHg BP Diastolic Sitting Right Arm 79 mmHg Heart Rate 78 /min reg Respiratory Rate 24 /min Height 67 inches 5'7" Weight 250.00 lb BMI (Body Mass Index) 39.2 kg/m2 BSA (Body Surface Area) 2.22 m2 [place] body weight in kilograms 61 O2 % BldC Oximetry 95 % ra 09/23/2017 BP Systolic Sitting Left Arm 136 mmHg BP Diastolic Sitting Left Arm 80 mmHg Heart Rate 77 /min Respiratory Rate 20 /min Height 67 inches 5'7" Weight 244.00 lb BMI (Body Mass Index) 38.2 kg/m2 BSA (Body Surface Area) 2.20 m2 [place] body weight in kilograms 61 O2 % BldC Oximetry 94 % 09/03/2017 BP Systolic 144 mmHg BP Diastolic 77 mmHg Body Temperature 98.5 F Heart Rate 77 /min Respiratory Rate 16 /min Height 67 inches 5'7" Weight 244.00 lb BMI (Body Mass Index) 38.2 kg/m2 BSA (Body Surface Area) 2.20 m2 [place] body weight in kilograms 61 O2 % BldC Oximetry 95 % 08/12/2017 BP Systolic Sitting Right Arm 151 mmHg BP Diastolic Sitting Right Arm 77 mmHg Body Temperature 101.4 F Heart Rate 65 /min Respiratory Rate 20 /min Height 67 inches 5'7" Weight 240.00 lb BMI (Body Mass Index) 37.6 kg/m2 BSA (Body Surface Area) 2.19 m2 [place] body weight in kilograms 61 O2 % BldC Oximetry 92 % 06/03/2017 BP Systolic 150 mmHg BP Diastolic 82 mmHg Heart Rate 60 /min Height 67 inches 5'7" Weight 236.38 lb BMI (Body Mass Index) 37.0 kg/m2 BSA (Body Surface Area) 2.17 m2 [place] body weight in kilograms 61 05/14/2017 BP Systolic 148 mmHg BP Diastolic 72 mmHg Heart Rate 72 /min Respiratory Rate 14 /min Height 67 inches 5'7" Weight 234.38 lb BMI (Body Mass Index) 36.7 kg/m2 BSA (Body Surface Area) 2.16 m2 [place] body weight in kilograms 61 O2 % BldC Oximetry 98 % 04/13/2017 BP Systolic 141 mmHg BP Diastolic 91 mmHg Heart Rate 85 /min Respiratory Rate 16 /min Height 67 inches 5'7" Weight 233.12 lb BMI (Body Mass Index) 36.5 kg/m2 BSA (Body Surface Area) 2.16 m2 [place] body weight in kilograms 61 O2 % BldC Oximetry 95 % 02/26/2017 BP Systolic 139 mmHg BP Diastolic 69 mmHg Heart Rate 63 /min Respiratory Rate 14 /min Height 67 inches 5'7" Weight 223.12 lb BMI (Body Mass Index) 34.9 kg/m2 BSA (Body Surface Area) 2.12 m2 [place] body weight in kilograms 61 O2 % [...] Test Result H/L Range Note Laboratory test 11/23/2017 Magnesium 2.3 mg/dL 1.8-2.4 1 finding Laboratory test 11/23/2017 Vitamin D,25-Hydroxy 26.8 ng/mL Low 30.0-100.0 1, 2 finding HDL Cholesterol 86 mg/dL >40 1, 3 Direct LDL Cholesterol 11/23/2017 LDL Chol. (Direct) 148 mg/dL High 0-99 1 Comment (SEE NOTE) 1, 4 Laboratory test finding 11/23/2017 Triglycerides 76 mg/dL <150 1, 5 Comprehensive Metabolic Panel 11/23/2017 Glucose 158 mg/dL High 74-106 1 BUN 15 mg/dL 7-18 1 Creatinine 1.0 mg/dL 0.6-1.3 1 Glom Filtration Rate, Estimate 60 mL/min >60 1 If >60 mL/min >60 1, 6 BUN/Creat 15.0 ratio 1 Sodium 142 mmol/L 136-145 1 Potassium 4.4 mmol/L 3.5-5.1 1 Chloride 111 mmol/L High 98-107 1 Carbon Dioxide 27 mmol/L 21-32 1 Anion Gap 4 mEq/L Low 8-16 1 Calcium 9.1 mg/dL 8.5-10.1 1 Total Protein 6.9 g/dL 6.4-8.2 1 Albumin 3.4 g/dL 3.4-5.0 1 Globulin 3.5 g/dL 1.9-4.3 1 Alb/Glob 1.0 ratio 1 Bilirubin,Total 0.4 mg/dL 0.2-1.0 1 Sgot/Ast 13 U/L Low 15-37 1, 7 SGPT/Alt 13 U/L 12-78 1 Alkaline Phosphatase 108 U/L 45-117 1 CBS W/Automated Diff 11/23/2017 White Blood Count 8.3 K/uL 3.1-10.7 1 Red Blood Count 4.51 M/uL 3.90-5.40 1 Hemoglobin 13.9 gm/dL 11.6-15.8 1 Hematocrit 42.7 % 36.0-46.1 1 Mean Cell Volume 94.7 fl 80.9-99.0 1 Mean Corpuscular HGB 30.8 pg 25.9-32.7 1 Mean Corpuscular HGB Conc 32.6 g/dL 30.8-34.3 1 Platelet Count 221 K/uL 155-360 1 Red Cell Distri Width SD 48.8 fl High 3-47 1 Red Cell Distri Width %CV 14.4 % 11.7-14.4 1 Mean Platelet Volume 9.8 fL 8.9-12.4 1 Neut% 65.7 % 40.4-72.8 1 Lymph % 27.5 % 20.0-42.0 1 [place] % 4.7 % 4.3-13.2 1 Eo% 1.9 % 0.0-6.6 1 Bas% 0.2 % 0.0-1.1 1 Neut# 5.45 K/uL 1.8-7.0 1 Lymph # 2.28 K/uL 1.0-4.0 1 [place] # 0.39 K/uL 0.3-0.9 1 Eos # 0.16 K/uL 0.0-0.5 1 Baso # 0.02 K/uL 0.0-0.1 1 Laboratory test 10/25/2017 Point of Care 140 mg/dL High 70-100 8 finding Glucose Laboratory test 08/07/2017 Vitamin 26.4 ng/mL Low 30.0-100.0 9, 10 finding D,25-Hydroxy Aldosterone 1.3 ng/dL 0.0-30.0 9, 11 Comprehensive Metabolic Panel 08/07/2017 Glucose 93 mg/dL 74-106 9 BUN 17 mg/dL 7-18 9 Creatinine 0.9 mg/dL 0.6-1.3 9 Glom Filtration Rate, Estimate >60 mL/min >60 9 If >60 mL/min >60 9, 12 BUN/Creat 18.8 ratio 9 Sodium 142 mmol/L 136-145 9 Potassium 4.1 mmol/L 3.5-5.1 9 Chloride 106 mmol/L 98-107 9 Carbon Dioxide 29 mmol/L 21-32 9 Anion Gap 7 mEq/L Low 8-16 9 Calcium 9.1 mg/dL 8.5-10.1 9 Total Protein 7.3 g/dL 6.4-8.2 9 Albumin 3.6 g/dL 3.4-5.0 9 Globulin 3.7 g/dL 1.9-4.3 9 Alb/Glob 1.0 ratio 9 Bilirubin,Total 0.4 mg/dL 0.2-1.0 9 Sgot/Ast 11 U/L Low 15-37 9, 13 SGPT/Alt 18 U/L 12-78 9 Alkaline Phosphatase 101 U/L 45-117 9 Laboratory test finding 08/07/2017 Gabapentin (Neurontin) 9.4 ug/mL 4.0- 16.0 9, 14 CBS W/Automated Diff 08/07/2017 White Blood Count 7.5 K/uL 3.1-10.7 9 Red Blood Count 4.58 M/uL 3.90-5.40 9 Hemoglobin 14.3 gm/dL 11.6-15.8 9 Hematocrit 41.3 % 36.0-46.1 9 Mean Cell Volume 90.2 fl 80.9-99.0 9 Mean Corpuscular HGB 31.2 pg 25.9-32.7 9 Mean Corpuscular HGB Conc 34.6 g/dL High 30.8-34.3 9 Platelet Count 282 K/uL 155-360 9 Red Cell Distri Width SD 42.1 fl 3-47 9 Red Cell Distri Width %CV 13.2 % 11.7-14.4 9 Mean Platelet Volume 10.5 fL 8.9-12.4 9 Neut% 54.5 % 40.4-72.8 9 Lymph % 37.3 % 20.0-42.0 9 [place] % 5.8 % 4.3-13.2 9 Eo% 2.1 % 0.0-6.6 9 Bas% 0.3 % 0.0-1.1 9 Neut# 4.11 K/uL 1.8-7.0 9 Lymph # 2.81 K/uL 1.0-4.0 9 [place] # 0.44 K/uL 0.3-0.9 9 Eos # 0.16 K/uL 0.0-0.5 9 Baso # 0.02 K/uL 0.0-0.1 9 Laboratory test finding 05/27/2017 Gabapentin (Neurontin) 4.5 ug/mL 4.0- 16.0 15, 16 Ua RFX Micro & Culture 05/27/2017 Urine Color YELLOW Yellow 17 II Urine Clarity CLEAR Clear 17 Urine Glucose - Dipstick NEGATIVE mg/dL Negative 17 Urine Bilirubin - Dipstick NEGATIVE Negative 17 Urine Ketone NEGATIVE mg/dL Negative 17 Urine Specific [place] 1.010 1.010-1.030 17 Urine Blood NEGATIVE Negative 17 Urine PH 5.5 Low 6.5-7.5 17 Urine Protein - Dipstick NEGATIVE mg/dL Negative 17 Urine Urobilinogen - Dipstick 0.2 E.U./dL 0.2-1.0 17 Urine Nitrite - Dipstick NEGATIVE Negative 17 Urine Leuk Esterase NEGATIVE Negative 17 Source: URINE, CLEAN CAT <SEE NOTE> 17, 18 Chlamydia/GC Gabrielle, Urine 05/27/2017 Chlamydia Trachomatis,Ur Negative Negative 17 -PCR Neisseria Gonorrhoeae,Ur -PCR Negative Negative 17, 19 Comprehensive Metabolic Panel 05/27/2017 Glucose 121 mg/dL High 74-106 20 BUN 15 mg/dL 7-18 20 Creatinine 0.8 mg/dL 0.6-1.3 20 Glom Filtration Rate, Estimate >60 mL/min >60 20 If >60 mL/min >60 20, 21 BUN/Creat 18.7 ratio 20 Sodium 139 mmol/L 136-145 20 Potassium 4.4 mmol/L 3.5-5.1 20 Chloride 104 mmol/L 98-107 20 Carbon Dioxide 29 mmol/L 21-32 20 Anion Gap 6 mEq/L Low 8-16 20 Calcium 9.1 mg/dL 8.5-10.1 20 Total Protein 7.3 g/dL 6.4-8.2 20 Albumin 3.5 g/dL 3.4-5.0 20 Globulin 3.8 g/dL 1.9-4.3 20 Alb/Glob 0.9 ratio 20 Bilirubin,Total 0.7 mg/dL 0.2-1.0 20 Sgot/Ast 5 U/L Low 15-37 20, 22 SGPT/Alt 15 U/L 12-78 20 Alkaline Phosphatase 131 U/L High 45-117 20 Protein Electro.,S 05/27/2017 Protein,Total,Serum 6.7 g/dL 6.0-8.5 20 Albumin 3.6 g/dL 2.9-4.4 20 Seyen-9-Frnrqhwa 0.3 g/dL 0.0-0.4 20 Grudt-1-Ucgawgpd 1.0 g/dL 0.4-1.0 20 Beta Globulin 1.1 g/dL 0.7-1.3 20 Gamma Globulin 0.7 g/dL 0.4-1.8 20 M-Kirk Not Observed g/dL Not Observed 20 Globulin, Total 3.1 g/dL 2.2-3.9 20 A/G Ratio 1.2 0.7-1.7 20 Please Note: . 20, 23 P E Interpretation, Serum . 20, 24 LDL Cholesterol Profile 05/27/2017 Cholesterol 253 mg/dL High <200 20, 25 Triglycerides 118 mg/dL <150 20, 26 HDL Cholesterol 88 mg/dL >40 20, 27 LDL-Cholesterol 141 mg/dL < 100 20, 28 Laboratory test 05/27/2017 Vitamin D,25-Hydroxy 21.7 ng/mL Low 30.0-100.0 20, 29 finding Glycohemoglobin A1c 05/27/2017 Glycohemoglobin (A1c) 5.9 % 4.2-6.3 20, 30 eAG 123 mg/dL 20 Vitamin B12 And Folate 05/27/2017 Vitamin B12 573 pg/mL 193-986 20 Folic Acid 10.6 ng/mL 3.1-17.5 20 Laboratory test finding 05/27/2017 Magnesium 2.1 mg/dL 1.8-2.4 20 Ferritin 62 ng/mL 8-252 20 Drugs Of Abuse-Urine Screen 7 05/04/2017 Amphetamines (Urine) Negative 31 Barbiturates (Urine) Negative 31 Benzodiazepines (Urine) POSITIVE High 31 Cannabinoids (Urine) POSITIVE 31 Cocaine Metabolite (Urine) Negative 31 Methadone (Urine) Negative 31 Opiates (Urine) Negative 31 Urine Cutoffs * 31, 32 Ua RFX Micro & Culture II 05/04/2017 Urine Color YELLOW Yellow 31 Urine Clarity CLEAR Clear 31 Urine Glucose - Dipstick NEGATIVE mg/dL Negative 31 Urine Bilirubin - Dipstick NEGATIVE Negative 31 Urine Ketone NEGATIVE mg/dL Negative 31 Urine Specific [place] 1.020 1.010-1.030 31 Urine Blood NEGATIVE Negative 31 Urine PH 5.5 Low 6.5-7.5 31 Urine Protein - Dipstick NEGATIVE mg/dL Negative 31 Urine Urobilinogen - Dipstick 0.2 E.U./dL 0.2-1.0 31 Urine Nitrite - Dipstick NEGATIVE Negative 31 Urine Leuk Esterase NEGATIVE Negative 31 Source: URINE, CLEAN CAT <SEE NOTE> 31, 33 CBS W/Automated Diff 05/04/2017 White Blood Count 8.6 K/uL 3.1-10.7 31 Red Blood Count 4.50 M/uL 3.90-5.40 31 Hemoglobin 13.9 gm/dL 11.6-15.8 31 Hematocrit 41.2 % 36.0-46.1 31 Mean Cell Volume 91.6 fl 80.9-99.0 31 Mean Corpuscular HGB 30.9 pg 25.9-32.7 31 Mean Corpuscular HGB Conc 33.7 g/dL 30.8-34.3 31 Platelet Count 221 K/uL 150-400 31 Red Cell Distri Width SD 45.1 fl 3-47 31 Red Cell Distri Width %CV 13.9 % 11.7-14.4 31 Mean Platelet Volume 9.6 fL 8.9-12.4 31 Neut% 52.8 % 40.4-72.8 31 Lymph % 38.3 % 20.0-42.0 31 [place] % 7.2 % 4.3-13.2 31 Eo% 1.6 % 0.0-6.6 31 Bas% 0.1 % 0.0-1.1 31 Neut# 4.56 K/uL 1.8-7.0 31 Lymph # 3.31 K/uL 1.0-4.0 31 [place] # 0.62 K/uL 0.3-0.9 31 Eos # 0.14 K/uL 0.0-0.5 31 Baso # 0.01 K/uL 0.0-0.1 31 Laboratory test finding 05/04/2017 Salicylate 4.4 mg/dL 2.8-20.0 31, 34 Acetaminophen < 2.0 ug/mL Low 10.0-30.0 31, 35 Ethyl Alcohol < 3.0 mg/dL 31 Comprehensive Metabolic Panel 05/04/2017 Glucose 114 mg/dL High 74-106 31 BUN 17 mg/dL 7-18 31 Creatinine 1.0 mg/dL 0.6-1.3 31 Glom Filtration Rate, Estimate 60 mL/min >60 31 If >60 mL/min >60 31, 36 BUN/Creat 17.0 ratio 31 Sodium 140 mmol/L 136-145 31 Potassium 3.6 mmol/L 3.5-5.1 31 Chloride 108 mmol/L High 98-107 31 Carbon Dioxide 24 mmol/L 21-32 31 Anion Gap 8 mEq/L 8-16 31 Calcium 9.3 mg/dL 8.5-10.1 31 Total Protein 7.6 g/dL 6.4-8.2 31 Albumin 3.9 g/dL 3.4-5.0 31 Globulin 3.7 g/dL 1.9-4.3 31 Alb/Glob 1.1 ratio 31 Bilirubin,Total 0.3 mg/dL 0.2-1.0 31 Sgot/Ast 10 U/L Low 15-37 31, 37 SGPT/Alt 13 U/L 12-78 31 Alkaline Phosphatase 126 U/L High 45-117 31 Laboratory test 05/04/2017 TSH Reflex FT4 0.81 uIU/mL 0.30-4.20 31 finding and/or FT3 LDL Cholesterol 04/16/2017 Cholesterol 224 mg/dL High <200 38, 39 Profile Triglycerides 154 mg/dL High <150 38, 40 HDL Cholesterol 58 mg/dL >40 38, 41 LDL-Cholesterol 135 mg/dL < 100 38, 42 Laboratory test finding 04/16/2017 Treponema Antibody Negative Negative 38, 43 [place] Ua RFX Micro & Culture 04/15/2017 Urine Color YELLOW Yellow 44 II Urine Clarity CLEAR Clear 44 Urine Glucose - Dipstick NEGATIVE mg/dL Negative 44 Urine Bilirubin - Dipstick NEGATIVE Negative 44 Urine Ketone NEGATIVE mg/dL Negative 44 Urine Specific [place] <=1.005 Low 1.010-1.030 44 Urine Blood NEGATIVE Negative 44 Urine PH 6.0 Low 6.5-7.5 44 Urine Protein - Dipstick NEGATIVE mg/dL Negative 44 Urine Urobilinogen - Dipstick 0.2 E.U./dL 0.2-1.0 44 Urine Nitrite - Dipstick NEGATIVE Negative 44 Urine Leuk Esterase NEGATIVE Negative 44 Source: URINE, CLEAN CAT <SEE NOTE> 44, 45 Drugs Of Abuse-Urine Screen 7 04/15/2017 Amphetamines (Urine) Negative 44 Barbiturates (Urine) Negative 44 Benzodiazepines (Urine) POSITIVE High 44 Cannabinoids (Urine) POSITIVE 44 Cocaine Metabolite (Urine) Negative 44 Methadone (Urine) Negative 44 Opiates (Urine) Negative 44 Urine Cutoffs * 44, 46 CBS W/Automated Diff 04/15/2017 White Blood Count 7.4 K/uL 3.1-10.7 44 Red Blood Count 4.29 M/uL 3.90-5.40 44 Hemoglobin 13.1 gm/dL 11.6-15.8 44 Hematocrit 38.9 % 36.0-46.1 44 Mean Cell Volume 90.7 fl 80.9-99.0 44 Mean Corpuscular HGB 30.5 pg 25.9-32.7 44 Mean Corpuscular HGB Conc 33.7 g/dL 30.8-34.3 44 Platelet Count 218 K/uL 150-400 44 Red Cell Distri Width SD 43.4 fl 3-47 44 Red Cell Distri Width %CV 13.6 % 11.7-14.4 44 Mean Platelet Volume 10.1 fL 8.9-12.4 44 Neut% 63.9 % 40.4-72.8 44 Lymph % 29.1 % 20.0-42.0 44 [place] % 5.7 % 4.3-13.2 44 Eo% 1.0 % 0.0-6.6 44 Bas% 0.3 % 0.0-1.1 44 Neut# 4.70 K/uL 1.8-7.0 44 Lymph # 2.14 K/uL 1.0-4.0 44 [place] # 0.42 K/uL 0.3-0.9 44 Eos # 0.07 K/uL 0.0-0.5 44 Baso # 0.02 K/uL 0.0-0.1 44 Laboratory test finding 04/15/2017 Salicylate 5.0 mg/dL 2.8-20.0 44, 47 LDL Cholesterol Profile 02/11/2016 Cholesterol 212 mg/dL High <200 48 Triglycerides 218 mg/dL High <150 49 HDL Cholesterol 50 mg/dL >40 50 LDL-Cholesterol 118 mg/dL < 100 51 Laboratory test finding 02/11/2016 Gamma Glutamyl Transpeptidase 5 U/L 5- 85 Vitamin D,25-Hydroxy 22.5 ng/mL Low 30.0-100.0 52 Thyroid Stim Hormone 0.88 uIU/mL 0.30-4.20 Antinuclear Antibodies, Ifa Negative . 53 Rheumatoid Factor Screen < 10.0 IU/mL 0.0-15.0 Glycohemoglobin A1c 02/11/2016 Glycohemoglobin (A1c) 5.9 % 4.2-6.3 54 eAG 123 mg/dL Comprehensive Metabolic Panel 02/11/2016 Glucose 108 mg/dL High 74-106 BUN 16 mg/dL 7-18 Creatinine 0.9 mg/dL 0.6-1.3 Glom Filtration Rate, Estimate >60 mL/min >60 If >60 mL/min >60 55 BUN/Creat 17.7 ratio Sodium 143 mmol/L 136-145 Potassium 3.9 mmol/L 3.5-5.1 Chloride 110 mmol/L High 98-107 Carbon Dioxide 26 mmol/L 21-32 Anion Gap 7 mEq/L Low 8-16 Calcium 8.5 mg/dL 8.5-10.1 Total Protein 7.2 g/dL 6.4-8.2 Albumin 3.5 g/dL 3.4-5.0 Globulin 3.7 g/dL 1.9-4.3 Alb/Glob 0.9 ratio Bilirubin,Total 0.2 mg/dL 0.2-1.0 Sgot/Ast 9 U/L Low 15-37 56 SGPT/Alt 16 U/L 12-78 Alkaline Phosphatase 118 U/L High 45-117 Laboratory test finding 02/11/2016 Magnesium 1.9 mg/dL 1.8-2.4 Comprehensive Metabolic Panel 11/08/2015 Glucose 89 mg/dL 74-106 BUN 20 mg/dL High 7-18 Creatinine 1.3 mg/dL 0.6-1.3 Glom Filtration Rate, Estimate 45 mL/min >60 If 54 mL/min >60 57 BUN/Creat 15.3 ratio Sodium 141 mmol/L 136-145 Potassium 4.0 mmol/L 3.5-5.1 Chloride 107 mmol/L 98-107 Carbon Dioxide 27 mmol/L 21-32 Anion Gap 7 mEq/L Low 8-16 Calcium 9.3 mg/dL 8.5-10.1 Total Protein 7.2 g/dL 6.4-8.2 Albumin 3.6 g/dL 3.4-5.0 Globulin 3.6 g/dL 1.9-4.3 Alb/Glob 1.0 ratio Bilirubin,Total 0.3 mg/dL 0.2-1.0 Sgot/Ast 8 U/L Low 15-37 58 SGPT/Alt 15 U/L 12-78 Alkaline Phosphatase 122 U/L High 45-117 Laboratory test finding 11/08/2015 Magnesium 2.2 mg/dL 1.8-2.4 LDL Cholesterol Profile 09/14/2015 Cholesterol 274 mg/dL High <200 59 Triglycerides 294 mg/dL High <150 60 HDL Cholesterol 56 mg/dL >40 61 LDL-Cholesterol 159 mg/dL < 100 62 Glycohemoglobin A1c 09/14/2015 Glycohemoglobin (A1c) 5.6 % 4.2-6.3 63 eAG 114 mg/dL Comprehensive Metabolic Panel 09/14/2015 Glucose 118 mg/dL High 74-106 BUN 21 mg/dL High 7-18 Creatinine 1.2 mg/dL 0.6-1.3 Glom Filtration Rate, Estimate 49 mL/min >60 If 60 mL/min >60 64 BUN/Creat 17.5 ratio Sodium 142 mmol/L 136-145 Potassium 3.9 mmol/L 3.5-5.1 Chloride 106 mmol/L 98-107 Carbon Dioxide 25 mmol/L 21-32 Anion Gap 11 mEq/L 8-16 Calcium 9.1 mg/dL 8.5-10.1 Total Protein 7.6 g/dL 6.4-8.2 Albumin 4.1 g/dL 3.4-5.0 Globulin 3.5 g/dL 1.9-4.3 Alb/Glob 1.2 ratio Bilirubin,Total 0.4 mg/dL 0.2-1.0 Sgot/Ast 10 U/L Low 15-37 65 SGPT/Alt 15 U/L 12-78 Alkaline Phosphatase 111 U/L 45-117 Comprehensive Metabolic Panel 07/21/2015 Glucose 106 mg/dL 74-106 BUN 18 mg/dL 7-18 Creatinine 1.1 mg/dL 0.6-1.3 Glom Filtration Rate, Estimate 54 mL/min >60 If >60 mL/min >60 66 BUN/Creat 16.3 ratio Sodium 143 mmol/L 136-145 Potassium 3.7 mmol/L 3.5-5.1 Chloride 110 mmol/L High 98-107 Carbon Dioxide 24 mmol/L 21-32 Anion Gap 9 mEq/L 8-16 Calcium 8.9 mg/dL 8.5-10.1 Total Protein 6.6 g/dL 6.4-8.2 Albumin 3.4 g/dL 3.4-5.0 Globulin 3.2 g/dL 1.9-4.3 Alb/Glob 1.1 ratio Bilirubin,Total 0.4 mg/dL 0.2-1.0 Sgot/Ast 6 U/L Low 15-37 67 SGPT/Alt 16 U/L 12-78 Alkaline Phosphatase 79 U/L 45-117 Laboratory test finding 07/21/2015 Lipase 86 U/L 73-393 CBC 07/21/2015 White Blood Count 10.3 K/uL 3.1-10.7 Red Blood Count 3.93 M/uL 3.90-5.40 Hemoglobin 12.1 gm/dL 11.6-15.8 Hematocrit 37.4 % 36.0-46.1 Mean Cell Volume 95.2 fl 80.9-99.0 Mean Corpuscular HGB 30.8 pg 25.9-32.7 Mean Corpuscular HGB Conc 32.4 g/dL 30.8-34.3 Platelet Count 257 K/uL 155-360 Red Cell Distri Width %CV 13.5 % 11.7-14.4 Mean Platelet Volume 10.0 fL 8.9-12.4 Laboratory test finding 07/21/2015 D-Dimer, Quantitative 0.31 ug/mL 68 Laboratory test finding 07/21/2015 Estimated GFR (Non- 54 >60 [place] RDW Coefficient of Variation 13.5 11.7-14.4 Sodium Level 143 136-145 LDL Cholesterol Profile 06/08/2015 Cholesterol 269 mg/dL High <200 69 Triglycerides 257 mg/dL High <150 70 HDL Cholesterol 45 mg/dL >40 71 LDL-Cholesterol 173 mg/dL < 100 72 Comprehensive Metabolic Panel 06/08/2015 Glucose 102 mg/dL 74-106 BUN 24 mg/dL High 7-18 Creatinine 1.0 mg/dL 0.6-1.3 Glom Filtration Rate, Estimate >60 mL/min >60 If >60 mL/min >60 73 BUN/Creat 24.0 ratio Sodium 141 mmol/L 136-145 Potassium 4.2 mmol/L 3.5-5.1 Chloride 109 mmol/L High 98-107 Carbon Dioxide 26 mmol/L 21-32 Anion Gap 6 mEq/L Low 8-16 Calcium 8.9 mg/dL 8.5-10.1 Total Protein 7.1 g/dL 6.4-8.2 Albumin 3.7 g/dL 3.4-5.0 Globulin 3.4 g/dL 1.9-4.3 Alb/Glob 1.1 ratio Bilirubin,Total 0.2 mg/dL 0.2-1.0 Sgot/Ast 7 U/L Low 15-37 74 SGPT/Alt 19 U/L 12-78 Alkaline Phosphatase 98 U/L 45-117 Laboratory test finding 06/08/2015 Sodium Level 141 136-145 Comprehensive Metabolic Panel 04/11/2015 Glucose 120 mg/dL High 74-106 BUN 12 mg/dL 7-18 Creatinine 1.0 mg/dL 0.6-1.3 Glom Filtration Rate, Estimate >60 mL/min >60 If >60 mL/min >60 75 BUN/Creat 12.0 ratio Sodium 140 mmol/L 136-145 Potassium 3.8 mmol/L 3.5-5.1 Chloride 106 mmol/L 98-107 Carbon Dioxide 27 mmol/L 21-32 Anion Gap 7 mEq/L Low 8-16 Calcium 9.3 mg/dL 8.5-10.1 Total Protein 6.7 g/dL 6.4-8.2 Albumin 3.4 g/dL 3.4-5.0 Globulin 3.3 g/dL 1.9-4.3 Alb/Glob 1.0 ratio Bilirubin,Total 0.4 mg/dL 0.2-1.0 Sgot/Ast 10 U/L Low 15-37 76 SGPT/Alt 19 U/L 12-78 Alkaline Phosphatase 96 U/L 45-117 Laboratory test finding 04/11/2015 Gamma Glutamyl Transpeptidase 11 U/L 5 -85 Thyroxine (T4) 11.6 g/dL 4.7-13.5 Thyroid Stim Hormone 0.43 uIU/mL 0.36-3.74 Glycohemoglobin A1c 04/11/2015 Glycohemoglobin (A1c) 6.1 % 4.2-6.3 77 eAG 128 mg/dL Laboratory test finding 04/11/2015 Triiodothyronine,Total 159 ng/dL 71- 180 78 CBC 04/11/2015 White Blood Count 4.7 K/uL [...] 10.3 fL 8.9-12.4 Laboratory test finding 04/11/2015 Estimated Average Glucose (eAG) 128 Hemoglobin A1c 6.1 4.2-6.3 RDW Coefficient of Variation 13.3 11.7-14.4 Sodium Level 140 136-145 Laboratory test finding 04/11/2015 Rapid Plasma Reagin NONREACTIVE NONREACTIVE 79 Laboratory test finding 03/29/2015 Estimated Average 111 Glucose (eAG) Estimated GFR () 50 >60 Estimated GFR (Non- 41 >60 Hemoglobin A1c 5.5 4.2-6.3 Sodium Level 138 136-145 Glycohemoglobin A1c 03/29/2015 Glycohemoglobin (A1c) 5.5 % 4.2-6.3 80 eAG 111 mg/dL Laboratory test finding 03/29/2015 CK 54 U/L 26-192 Thyroid Stim Hormone 0.95 uIU/mL 0.36-3.74 Comprehensive Metabolic Panel 03/29/2015 Glucose 100 mg/dL 74-106 BUN 23 mg/dL High 7-18 Creatinine 1.4 mg/dL High 0.6-1.3 Glom Filtration Rate, Estimate 41 mL/min >60 If 50 mL/min >60 81 BUN/Creat 16.4 ratio Sodium 138 mmol/L 136-145 Potassium 4.3 mmol/L 3.5-5.1 Chloride 107 mmol/L 98-107 Carbon Dioxide 26 mmol/L 21-32 Anion Gap 5 mEq/L Low 8-16 Calcium 9.0 mg/dL 8.5-10.1 Total Protein 7.2 g/dL 6.4-8.2 Albumin 3.6 g/dL 3.4-5.0 Globulin 3.6 g/dL 1.9-4.3 Alb/Glob 1.0 ratio Bilirubin,Total 0.2 mg/dL 0.2-1.0 Sgot/Ast 13 U/L Low 15-37 82 SGPT/Alt 22 U/L 12-78 Alkaline Phosphatase 102 U/L 45-117 Laboratory test finding 02/21/2015 Aot Request Test(s) added 83 Laboratory test finding 02/21/2015 Ammonia < 10 umol/L Low 11-32 Comprehensive Metabolic Panel 02/21/2015 Glucose 92 mg/dL [...] 108 U/L 45-117 Laboratory test finding 02/21/2015 CK 1839 U/L High 26-192 85 Troponin-I < 0.015 ng/mL 86 Acetaminophen < 2.0 ug/mL Low 10.0-30.0 87 Salicylate 4.1 mg/dL 2.8-20.0 88 Ethyl Alcohol < 3.0 mg/dL CBC W/Automated [...] % 40.4-72.8 Lymph % 23.9 % 17.0-46.1 [place] % 7.9 % 4.3-13.2 Eo% 0.9 % 0.0-6.6 Bas% 0.3 % 0.0-1.1 Neut# 4.98 K/uL 1.0-7.0 Lymph # 1.78 K/uL Low 1.8-7.0 [place] # 0.59 K/uL 0.3-0.9 Eos # 0.07 K/uL 0.0-0.5 Baso # 0.02 K/uL 0.0-0.1 Protime 02/21/2015 Protime 13.4 seconds 12.1-14.9 Inr 1.0 0.9-1.1 89 Laboratory test finding 02/21/2015 [place] < 0.20 mmol/L Low 0.60-1.20 90 Arterial Blood Gas 02/21/2015 Vidal's Test YES Performed? Arterial Blood Gas pH 7.25 Low 7.35-7.45 [...] Gas Site L.RAD.ART. Laboratory test finding 02/21/2015 Urine Screen See Note 91 Urinalysis With Microscopic 02/21/2015 Urine Color YELLOW Yellow Urine Clarity SL CLOUDY Clear Urine Glucose - Dipstick NEGATIVE mg/dL Negative Urine Bilirubin - Dipstick NEGATIVE Negative Urine Ketone NEGATIVE mg/dL Negative Urine Specific [place] >=1.030 1.010-1.030 Urine Blood MODERATE High Negative Urine PH 5.5 Low 6.5-7.5 Urine Protein - Dipstick 30 mg/dL High Negative Urine Urobilinogen - Dipstick 0.2 E.U./dL 0.2-1.0 Urine Nitrite - Dipstick NEGATIVE Negative Urine Leuk Esterase NEGATIVE Negative Urine RBC 0-2 rbc/hpf 0-2 Urine WBC 0-2 wbc/hpf 0-7 Urine Epithelial Cells MODERATE NONESEEN/lpf 92 Urine Bacteria VERY FEW NONESEEN Urine Amorph Sediment MODERATE Negative Drugs Of Abuse-Urine Screen 7 02/21/2015 Amphetamines (Urine) Negative Barbiturates (Urine) Negative Benzodiazepines (Urine) POSITIVE High Cannabinoids (Urine) Negative Cocaine Metabolite (Urine) Negative Methadone (Urine) Negative Opiates (Urine) Negative Urine Cutoffs * 93 Please Note # 94 1 E55.9,E78.5,Z79.899 2 Vitamin D deficiency has been defined by the [place] [employer] and an Endocrine Society practice guideline as a level of serum 25-OH vitamin D less than 20 ng/mL (1,2). The Endocrine Society went on to further define vitamin D insufficiency as a level between 21 and 29 ng/mL (2). 1. IOM ([place] [employer]). 2010. Dietary reference intakes for calcium and D. [place]: The National Academies Press. 2. Jared MF, Sharon NUR, Emeka BUSBY, et al. Evaluation, treatment, and prevention of vitamin D deficiency: an Endocrine Society clinical practice guideline. JCEM. 2010; 96(0):1911-30. Performed at: RN - [facility] [address] [id number] Pipe Testing Technician: Lina Mcghee MD, Phone: [phone] 3 Reference Guidelines*: Low HDL: ..... < 40 mg/dL Normal: ..... 40-60 mg/dL Desirable: ... > 60 mg/dL *The National Cholesterol Education Program(NCEP) 4 Performed at: RN - [facility] [address] [id number] Pipe Testing Technician: Lina Mcghee MD, Phone: [phone] 5 Reference Guidelines*: Normal: ............. < 150 mg/dL Borderline High: .... 150-199 mg/dL High: ............... 200-499 mg/dL Very High: .......... > 500 mg/dL * Source: National Cholesterol Education Program (NCEP) 6 Note: Persistent reduction for 3 months or more in an eGFR <60 mL/min/1.73 m2 defines CKD. Patients with eGFR values >/=60 mL/min/1.73 m2 may also have CKD if evidence of persistent proteinuria is present. The original MDRD equation for estimated GFR is not valid for patients less than 18 years of age. Additional information may be found at www.kdoqi.org. 7 Values below the stated reference ranges of AST and ALT can be seen in normal populations. Clinical correlation is suggested. 8 Lipcoat Sprayer: [id number] E55.9, I10, Z79.899 10 Vitamin D deficiency has been defined by the [place] [employer] and an Endocrine Society practice guideline as a level of serum 25-OH vitamin D less than 20 ng/mL (1,2). The Endocrine Society went on to further define vitamin D insufficiency as a level between 21 and 29 ng/mL (2). 1. IOM ([place] [employer]). 2010. Dietary reference intakes for calcium and D. [place]: The National Academies Press. 2. Jared MF, Sharon NUR, Emeka BUSBY, et al. Evaluation, treatment, and prevention of vitamin D deficiency: an Endocrine Society clinical practice guideline. JCEM. 2010; 96(7):1911-30. Performed at: [facility] [employer] [id number] Pipe Testing Technician: Lina Mcghee MD, Phone: [phone] 11 This test was developed and its performance characteristics determined by [employer]. It has not been cleared or approved by the Food and Drug Administration. 12 Note: Persistent reduction for 3 months or more in an eGFR <60 mL/min/1.73 m2 defines CKD. Patients with eGFR values >/=60 mL/min/1.73 m2 may also have CKD if evidence of persistent proteinuria is present. The original MDRD equation for estimated GFR is not valid for patients less than 18 years of age. Additional information may be found at www.kdoqi.org. 13 Values below the stated reference ranges of AST and ALT can be seen in normal populations. Clinical correlation is suggested. 14 Detection Limit=1.0 Performed at: [facility] [address] [id number] Pipe Testing Technician: Al Anderson MD, Phone: [phone] 15 R74.8 E11.9 G47.62 G25.81 E55.9 R74.8 E11.9 G47.62 G25.81 E55.9 F20.0 Z79.899 R74.8 E11.9 G47.62 G25.81 E55.9 F20.0 Z79.899 R74.8 E11.9 G47.62 G25.81 E55.9 F20.0 Z79.899 16 05/30/17 1410: GABAPENTIN previously reported as: mcg/mL Performed at: [facility] [employer] [id number] Pipe Testing Technician: Lina Mcghee MD, Phone: [phone] Performed at: [facility] [employer] [id number] Pipe Testing Technician: Al Anderson MD, Phone: [phone] Amended result called to: [] - 05/30/17 at 1410 Detection Limit=1.0 Performed at: [address] [id number] Pipe Testing Technician: Lina Mcghee MD, Phone: [phone] Performed at: [address] [id number] Pipe Testing Technician: Al Anderson MD, Phone: [phone] 17 UPPER RIGHT LEG SEVERE PAIN, NAUSEA 18 URINE, CLEAN CATCH 19 A negative result for either C. trachomatis and/or N. gonorrhoeae does not preclued an infection because results are dependent on adequate specimen collection, absence of inhibitors, and sufficient DNA to be detected. 20 R74.8 E11.9 G47.62 G25.81 E55.9 R74.8 E11.9 G47.62 G25.81 E55.9 F20.0 Z79.899 R74.8 E11.9 G47.62 G25.81 E55.9 F20.0 Z79.899 R74.8 E11.9 G47.62 G25.81 E55.9 F20.0 Z79.899 21 Note: Persistent reduction for 3 months or more in an eGFR <60 mL/min/1.73 m2 defines CKD. Patients with eGFR values >/=60 mL/min/1.73 m2 may also have CKD if evidence of persistent proteinuria is present. The original MDRD equation for estimated GFR is not valid for patients less than 18 years of age. Additional information may be found at www.kdoqi.org. 22 Values below the stated reference ranges of AST and ALT can be seen in normal populations. Clinical correlation is suggested. 23 Protein electrophoresis scan will follow via computer, mail, or line haul truck driver delivery. 06/01/17 0242: Please Note: previously reported as: Protein electrophoresis scan will follow via computer, mail, or line haul truck driver delivery. 24 The SPE pattern appears essentially unremarkable. Evidence of monoclonal protein is not apparent. 05/30/17 1410: P E Interp previously reported as: The SPE pattern appears essentially unremarkable. Evidence of monoclonal protein is not apparent. Performed at: [facility] [employer] [id number] Pipe Testing Technician: Lina Mcghee MD, Phone: [phone] Amended result called to: [] - 05/30/17 at 1410 25 Reference Guidelines*: Desirable: ........... < 200 mg/dL Borderline High: ..... 200-239 mg/dL High: ................ >=240 mg/dL * The National Cholesterol Education Program (NCEP) 26 Reference Guidelines*: Normal: ............. < 150 mg/dL Borderline High: .... 150-199 mg/dL High: ............... 200-499 mg/dL Very High: .......... > 500 mg/dL * Source: National Cholesterol Education Program (NCEP) 27 Reference Guidelines*: Low HDL: ..... < 40 mg/dL Normal: ..... 40-60 mg/dL Desirable: ... > 60 mg/dL *The National Cholesterol Education Program(NCEP) 28 Reference Guidelines*: Optimal:........... <100 mg/dL Near Optimal....... 100-129 mg/dL Borderline High.... 130-159 mg/dL High............... 160-189 mg/dL Very High.......... >=190 mg/dL * Source: National Cholesterol Education Program (NCEP) 29 Vitamin D deficiency has been defined by the [place] [employer] and an Endocrine Society practice guideline as a level of serum 25-OH vitamin D less than 20 ng/mL (1,2). The Endocrine Society went on to further define vitamin D insufficiency as a level between 21 and 29 ng/mL (2). 1. IOM ([place] [employer]). 2010. Dietary reference intakes for calcium and D. [place]: The National Academies Press. 2. Jared HARPER, Sharon NUR, Emeka BUSBY, et al. Evaluation, treatment, and prevention of vitamin D deficiency: an Endocrine Society clinical practice guideline. JCEM. 2010; 96(7):1911-30. Performed at: RN - [facility] [address] [id number] Pipe Testing Technician: Lina Mcghee MD, Phone: [phone] 30 Elevated levels of HbA1c suggest the need for more aggressive treatment of glycemia. The [place] Diabetes Association recommends that a primary goal of therapy should be a HbA1c of <7% and that physicians should re-evaluate the treatment regimen in patients with HbA1c values consistently >8%. 31 EVAL 32 URINE SPECIMENS ARE SCREENED AT THE LISTED CUTOFFS DRUG CLASS INITIAL TEST LEVEL Amphetamines 1000 ng/mL Barbiturates 200 ng/mL Benzodiazepines 200 ng/mL Cannabinoids 50 ng/mL Cocaine Metabolite 300 ng/mL Methadone 300 ng/mL Opiates 300 ng/mL Any PRESUMPTIVE POSITIVE findings are UNCONFIRMED. Confirmatory testing is suggested if findings are unexpected. Please contact laboratory if confirmatory testing is desired. SPECIMENS ARE HELD FOR 72 HOURS. 33 URINE, CLEAN CATCH 34 THERAPEUTIC RANGE: 15-30 mg/dL POTENTIAL TOXICITY VARIES WITH TIME FROM INGESTION. PLEASE CONSULT APPROPRIATE NOMOGRAM. 35 Acetaminophen concentration >150 ug/mL at four hours after ingestion and 50.0 ug/mL at twelve hours after ingestion are often associated with toxic reactions. 36 Note: Persistent reduction for 3 months or more in an eGFR <60 mL/min/1.73 m2 defines CKD. Patients with eGFR values >/=60 mL/min/1.73 m2 may also have CKD if evidence of persistent proteinuria is present. The original MDRD equation for estimated GFR is not valid for patients less than 18 years of age. Additional information may be found at www.kdoqi.org. 37 Values below the stated reference ranges of AST and ALT can be seen in normal populations. Clinical correlation is suggested. 38 PS[facility]CH SERVICES 39 Reference Guidelines*: Desirable: ........... < 200 mg/dL Borderline High: ..... 200-239 mg/dL High: ................ >=240 mg/dL * The National Cholesterol Education Program (NCEP) 40 Reference Guidelines*: Normal: ............. < 150 mg/dL Borderline High: .... 150-199 mg/dL High: ............... 200-499 mg/dL Very High: .......... > 500 mg/dL * Source: National Cholesterol Education Program (NCEP) 41 Reference Guidelines*: Low HDL: ..... < 40 mg/dL Normal: ..... 40-60 mg/dL Desirable: ... > 60 mg/dL *The National Cholesterol Education Program(NCEP) 42 Reference Guidelines*: Optimal:........... <100 mg/dL Near Optimal....... 100-129 mg/dL Borderline High.... 130-159 mg/dL High............... 160-189 mg/dL Very High.......... >=190 mg/dL * Source: National Cholesterol Education Program (NCEP) 43 Performed at: [facility] [id number] Pipe Testing Technician: Al Anderson MD, Phone: [phone] 44 MENTAL HEALTH EVAL 45 URINE, CLEAN CATCH 46 URINE SPECIMENS ARE SCREENED AT THE LISTED CUTOFFS DRUG CLASS INITIAL TEST LEVEL Amphetamines 1000 ng/mL Barbiturates 200 ng/mL Benzodiazepines 200 ng/mL Cannabinoids 50 ng/mL Cocaine Metabolite 300 ng/mL Methadone 300 ng/mL Opiates 300 ng/mL Any PRESUMPTIVE POSITIVE findings are UNCONFIRMED. Confirmatory testing is suggested if findings are unexpected. Please contact laboratory if confirmatory testing is desired. SPECIMENS ARE HELD FOR 72 HOURS. 47 THERAPEUTIC RANGE: 15-30 mg/dL POTENTIAL TOXICITY VARIES WITH TIME FROM INGESTION. PLEASE CONSULT APPROPRIATE NOMOGRAM. 48 Reference Guidelines*: Desirable: ........... < 200 mg/dL Borderline High: ..... 200-239 mg/dL High: ................ >=240 mg/dL * The National Cholesterol Education Program (NCEP) 49 Reference Guidelines*: Normal: ............. < 150 mg/dL Borderline High: .... 150-199 mg/dL High: ............... 200-499 mg/dL Very High: .......... > 500 mg/dL * Source: National Cholesterol Education Program (NCEP) 50 Reference Guidelines*: Low HDL: ..... < 40 mg/dL Normal: ..... 40-60 mg/dL Desirable: ... > 60 mg/dL *The National Cholesterol Education Program(NCEP) 51 Reference Guidelines*: Optimal:........... <100 mg/dL Near Optimal....... 100-129 mg/dL Borderline High.... 130-159 mg/dL High............... 160-189 mg/dL Very High.......... >=190 mg/dL * Source: National Cholesterol Education Program (NCEP) 52 Vitamin D deficiency has been defined by the [place] [employer] and an Endocrine Society practice guideline as a level of serum 25-OH vitamin D less than 20 ng/mL (1,2). The Endocrine Society went on to further define vitamin D insufficiency as a level between 21 and 29 ng/mL (2). 1. IOM ([place] [employer]). 2010. Dietary reference intakes for calcium and D. [place]: The National Academies Press. 2. Jared MF, Sharon [place], Emeka BUSBY, et al. Evaluation, treatment, and prevention of vitamin D deficiency: an Endocrine Society clinical practice guideline. JCEM. 2010; 96(7):1911-30. Performed at: RN - [facility] [address] [id number] Pipe Testing Technician: Lina Mcghee MD, Phone: [phone] 53 Negative <1:80 Borderline 1:80 Positive >1:80 Performed at: RN - [facility] [address] [id number] Pipe Testing Technician: Lina Mcghee MD, Phone: [phone] 54 Elevated levels of HbA1c suggest the need for more aggressive treatment of glycemia. The [place] Diabetes Association recommends that a primary goal of therapy should be a HbA1c of <7% and that physicians should re-evaluate the treatment regimen in patients with HbA1c values consistently >8%. 55 Note: Persistent reduction for 3 months or more in an eGFR <60 mL/min/1.73 m2 defines CKD. Patients with eGFR values >/=60 mL/min/1.73 m2 may also have CKD if evidence of persistent proteinuria is present. The original MDRD equation for estimated GFR is not valid for patients less than 18 years of age. Additional information may be found at www.kdoqi.org. 56 Values below the stated reference ranges of AST and ALT can be seen in normal populations. Clinical correlation is suggested. 57 Note: Persistent reduction for 3 months or more in an eGFR <60 mL/min/1.73 m2 defines CKD. Patients with eGFR values >/=60 mL/min/1.73 m2 may also have CKD if evidence of persistent proteinuria is present. The original MDRD equation for estimated GFR is not valid for patients less than 18 years of age. Additional information may be found at www.kdoqi.org. 58 Values below the stated reference ranges of AST and ALT can be seen in normal populations. Clinical correlation is suggested. 59 Reference Guidelines*: Desirable: ........... < 200 mg/dL Borderline High: ..... 200-239 mg/dL High: ................ >=240 mg/dL * The National Cholesterol Education Program (NCEP) 60 Reference Guidelines*: Normal: ............. < 150 mg/dL Borderline High: .... 150-199 mg/dL High: ............... 200-499 mg/dL Very High: .......... > 500 mg/dL * Source: National Cholesterol Education Program (NCEP) 61 Reference Guidelines*: Low HDL: ..... < 40 mg/dL Normal: ..... 40-60 mg/dL Desirable: ... > 60 mg/dL *The National Cholesterol Education Program(NCEP) 62 Reference Guidelines*: Optimal:........... <100 mg/dL Near Optimal....... 100-129 mg/dL Borderline High.... 130-159 mg/dL High............... 160-189 mg/dL Very High.......... >=190 mg/dL * Source: National Cholesterol Education Program (NCEP) 63 Elevated levels of HbA1c suggest the need for more aggressive treatment of glycemia. The [place] [employer] recommends that a primary goal of therapy should be a HbA1c of <7% and that physicians should re-evaluate the treatment regimen in patients with HbA1c values consistently >8%. 64 Note: Persistent reduction for 3 months or more in an eGFR <60 mL/min/1.73 m2 defines CKD. Patients with eGFR values >/=60 mL/min/1.73 m2 may also have CKD if evidence of persistent proteinuria is present. The original MDRD equation for estimated GFR is not valid for patients less than 18 years of age. Additional information may be found at www.kdoqi.org. 65 Values below the stated reference ranges of AST and ALT can be seen in normal populations. Clinical correlation is suggested. 66 Note: Persistent reduction for 3 months or more in an eGFR <60 mL/min/1.73 m2 defines CKD. Patients with eGFR values >/=60 mL/min/1.73 m2 may also have CKD if evidence of persistent proteinuria is present. The original MDRD equation for estimated GFR is not valid for patients less than 18 years of age. Additional information may be found at www.kdoqi.org. 67 Values below the stated reference ranges of AST and ALT can be seen in normal populations. Clinical correlation is suggested. 68 <=0.49 ug/mL - Low likelihood of DIC, DVT or Pulmonary Embolism >0.49 ug/mL - Additional testing should be done to rule out DIC, DVT, or Pulmonary embolism as clinically indicated. ([facility] has established a 97.89% negative predictive value for thrombotic disease when a cutoff value of 0.5 ug/mL is used.) 69 Reference Guidelines*: Desirable: ........... < 200 mg/dL Borderline High: ..... 200-239 mg/dL High: ................ >=240 mg/dL * The National Cholesterol Education Program (NCEP) 70 Reference Guidelines*: Normal: ............. < 150 mg/dL Borderline High: .... 150-199 mg/dL High: ............... 200-499 mg/dL Very High: .......... > 500 mg/dL * Source: National Cholesterol Education Program (NCEP) 71 Reference Guidelines*: Low HDL: ..... < 40 mg/dL Normal: ..... 40-60 mg/dL Desirable: ... > 60 mg/dL *The National Cholesterol Education Program(NCEP) 72 Reference Guidelines*: Optimal:........... <100 mg/dL Near Optimal....... 100-129 mg/dL Borderline High.... 130-159 mg/dL High............... 160-189 mg/dL Very High.......... >=190 mg/dL * Source: National Cholesterol Education Program (NCEP) 73 Note: Persistent reduction for 3 months or more in an eGFR <60 mL/min/1.73 m2 defines CKD. Patients with eGFR values >/=60 mL/min/1.73 m2 may also have CKD if evidence of persistent proteinuria is present. The original MDRD equation for estimated GFR is not valid for patients less than 18 years of age. Additional information may be found at www.kdoqi.org. 74 Values below the stated reference ranges of AST and ALT can be seen in normal populations. Clinical correlation is suggested. 75 Note: Persistent reduction for 3 months or more in an eGFR <60 mL/min/1.73 m2 defines CKD. Patients with eGFR values >/=60 mL/min/1.73 m2 may also have CKD if evidence of persistent proteinuria is present. The original MDRD equation for estimated GFR is not valid for patients less than 18 years of age. Additional information may be found at www.kdoqi.org. 76 Values below the stated reference ranges of AST and ALT can be seen in normal populations. Clinical correlation is suggested. 77 Elevated levels of HbA1c suggest the need for more aggressive treatment of glycemia. The [place] [employer] recommends that a primary goal of therapy should be a HbA1c of <7% and that physicians should re-evaluate the treatment regimen in patients with HbA1c values consistently >8%. 78 Performed at: RN - [facility] [address] [id number] Pipe Testing Technician: Lina Mcghee MD, Phone: [phone] PENDING; TEST PERFORMED ON MONDAYS AND THURSDAYS 80 Elevated levels of HbA1c suggest the need for more aggressive treatment of glycemia. The [place] [employer] recommends that a primary goal of therapy should be a HbA1c of <7% and that physicians should re-evaluate the treatment regimen in patients with HbA1c values consistently >8%. 81 Note: Persistent reduction for 3 months or more in an eGFR <60 mL/min/1.73 m2 defines CKD. Patients with eGFR values >/=60 mL/min/1.73 m2 may also have CKD if evidence of persistent proteinuria is present. The original MDRD equation for estimated GFR is not valid for patients less than 18 years of age. Additional information may be found at www.kdoqi.org. 82 Values below the stated reference ranges of AST and ALT can be seen in normal populations. Clinical correlation is suggested. 83 Tests: lithium Instructions: 84 Note: Persistent reduction for 3 months or more in an eGFR <60 mL/min/1.73 m2 defines CKD. Patients with eGFR values >/=60 mL/min/1.73 m2 may also have CKD if evidence of persistent proteinuria is present. The original MDRD equation for estimated GFR is not valid for patients less than 18 years of age. Additional information may be found at www.kdoqi.org. 85 Result confirmed by repeat analysis. 86 0.0 - 0.045 ng/mL: Normal 0.046 - 0.5 ng/mL: Suggestive 0.6 - 1.5 ng/mL: Consistent 87 Acetaminophen concentration >150 ug/mL at four hours after ingestion and 50.0 ug/mL at twelve hours after ingestion are often associated with toxic reactions. 88 THERAPEUTIC RANGE: 15-30 mg/dL POTENTIAL TOXICITY VARIES WITH TIME FROM INGESTION. PLEASE CONSULT APPROPRIATE NOMOGRAM. 89 THERAPEUTIC INR RANGE: 2.0 - 3.0 DVT, Pulmonary embolus, prophylaxis against venous thrombosis or systemic embolization in high risk patients. 2.5 - 3.5 Mechanical heart valves 90 Result confirmed by repeat analysis. 91 02/21/15 LAB.RAP Deleted by Reflex Group [facility] [place] 92 POSSIBLE UROGENITAL CONTAMINATION. 93 *THE SUBMITTED URINE SPECIMEN WAS SCREENED AT THE LISTED [facility] INITIAL TEST LEVEL Amphetamines 1000 ng/mL Barbiturates 200 ng/mL Benzodiazepines 200 ng/mL Cannabinoids 50 ng/mL Cocaine Metabolite 300 ng/mL Methadone 300 ng/mL Opiates 300 ng/mL 94 #THIS URINE SPECIMEN SCREENED POSITIVE FOR ONE OF MORE DRUG CLASSES. POSITIVE FINDINGS ARE UNCONFIRMED. CONFIRMATORY TESTING IS SUGGESTED IF FINDINGS ARE UNEXPECTED. PLEASE CONTACT THE LABORATORY IF CONFIRMATORY TESTING IS DESIRED. Procedures Date CPT Code Description Status Comment 07/01/2016 25 Disability Form Completed 11/18/2015 Mammogram Completed Q 2 year schedule 10/11/2015 59549 Eye Exam New Patient Comprehensive Completed 05/08/201474874 Asp./Injection major joint Completed 09/15/2013 Colonoscopy Completed 05/23/2012 96471 Echocardiogram Complete Completed 10/02/2008 92651 Echocardiogram Complete Completed 10/02/2008 41492 EKG Interpretation And Report Only Completed 2006 Aspiration/Injection joint Completed intermediate(wrist/ankle/elbow/olbur sa 07/30/2006 Asp./Injection major joint Completed 07/16/2006 Asp./Injection major joint Completed 07/10/2006 Asp./Injection major joint Completed 07/03/2006 Asp./Injection major joint Completed 04/08/2006 Asp./Injection major joint Completed Encounters Type Date Location Provider CPT E/M Dx Office Visit 11/27/2017 1:00p [facility] Office Mariluz Martinez M.D. 21093 I10 E55.9 E78.5 Z79.899 J44.9 R73.09 Office Visit 09/23/2017 10:40a [facility] Office Mariluz Martinez M.D. 13895 I10 E55.9 E78.5 Z79.899 G89.4 J44.9 Office Visit 09/03/2017 11:20a Primary [facility] Office Mariluz Martinez M.D. 06990 M54.5 M54.2 I10 J20.9 J44.9 R05 J01.90 Office Visit 08/12/2017 1:20p [facility] Office Mariluz Martinez M.D. 37459 J44.9 J20.9 I10 M79.7 F41.9 K21.9 E78.5 E55.9 Office Visit 06/03/2017 10:00a Primary [facility] Office Mariluz Martinez M.D. 33878 E55.9 M54.31 Z79.899 I10 R73.09 Office Visit 05/14/2017 1:20p Primary [facility] Office Mariluz Martinez M.D. 48169 F20.0 G89.4 I10 E11.9 J20.9 J44.9 Z79.899 Office Visit 04/13/2017 11:30a Primary Care Office Donya Denton, 35055 M79.7 PA-C M15.9 I10 E11.9 M54.5 E66.9 F41.9 Z23 Office Visit 02/26/2017 11:30a Primary Care Office Donya Denton, 46620 M79.7 PA-C F41.9 E11.9 R74.8 I10 Z12.31 Office Visit 07/01/2016 1:30p Primary Care Office Donya Denton, 32961 E11.9 PA-C G47.62 M15.9 I10 K58.9 M94.0 G43.909 Z86.73 Z23 Z71.6 F17.200 K21.9 E78.5 J44.9 R74.8 Z13.820 Z79.52 B37.2 Office Visit 02/12/2016 9:30a Primary Care Office Donya Denton, 59711 E11.9 PA-C G47.62 M15.9 I10 K58.9 M94.0 G43.909 Z86.73 M54.5 K21.9 E78.5 J44.9 R74.8 G25.81 J01.90 F41.9 Office Visit 11/13/2015 9:30a Primary Care Office Donya Denton, 72274 E11.9 PA-C G47.62 M15.9 I10 K58.9 M94.0 G43.909 Z86.73 M54.5 K21.9 E78.5 J44.9 R74.8 G25.81 Z12.31 F17.200 Z71.6 Office Visit 09/25/2015 10:00a Primary Care Office Donya Denton, 75035 G47.62 PA-C M15.9 I10 K58.9 M94.0 G43.909 Z86.73 M54.5 K21.9 E11.9 E78.5 J44.9 Office Visit 08/28/2015 9:15a JOJO Mercedes M.D. 62720 Z23 G47.62 M15.9 I10 K58.9 Office Visit 07/24/2015 11:30a JOJO Denton PA-C 53514 J44.1 J01.90 M94.0 G43.909 I10 Z86.73 K58.9 M54.5 K21.9 E11.9 Office Visit 06/12/2015 2:00p JOJO Denton PA-C 53803 G43.909 I10 Z86.73 K58.9 M54.5 K21.9 E11.9 Office Visit 04/17/2015 1:30p JOJO Denton PA-C 62442 L03.116 R41.3 M54.5 K58.9 K21.9 Z86.73 I10 G43.909 V04.89 E11.9 Office Visit 03/06/2015 11:00a JJOO Denton PA-C 17836 728.88 780.93 724.2 346.90 564.1 530.81 V12.54 401.9 496 300.00 Office Visit 05/08/2014 2:45p Orthopaedic Office Brenda Sauceda, 65285 727.82 [facility] 719.41 726.10 Office Visit 05/04/2013 5:26p [facility] Ayaan Buckner M.D. 86878 786.50 [facility] 496 584.9 Plan of Care Future Appointment(s):03/02/2018 9:20 am - Mariluz Martinez M.D. at [facility]7311/27/2017 - Mariluz Martinez M.D.I10 Essential (primary) hypertensionFollow up:f/u in 3 months blood orders will be sentE55.9 Vitamin D deficiency, unspecifiedNew Labs:Vitamin D,25-XwpgtfuE71.5 Hyperlipidemia, unspecifiedNew Labs:HDL CholesterolDirect LDL XihzwlkjlqpVgxowkwwvkbluW85.899 Other mcfp ( current) drug therapyNew Labs:CKComprehensive Metabolic VltkyPbroinmwzI12.9 Chronic obstructive pulmonary disease, ilmnzhyrkooW88.09 Other abnormal glucoseNew Labs:Glycohemoglobin A1cUa RFX Micro & Culture II
[2018-01-08 17:30] VITALS: BP 129/64
--- NOTE | 2018-01-08 18:13 | ED ---
Adult Trauma - HPI Summary HPI Summary: 62 yo WF h/o COPD, seizure DO woke up on kitchen floor today s/p fall, thinks she passed out possibly after a seizure. Takes Topiramate for seizure DO and was seizure free for 5 years but had an episode of breakthrough seizure last month, had fallen and daughter found her on floor of her home but never followed up with her PCP nor her neurologist until it happened again today. Denies fecal or urinary incontinence - History of Current Complaint Chief Complaint: UCUpperExtremity Stated Complaint: NECK/LFT SHLDR PAIN S/P FALL Time Seen by Provider: 01/08/18 17:35 Hx Last Menstrual Period: ablation Pain Intensity: 8 - Allergy/Home Medications Allergies/Adverse Reactions: Allergies Allergy/AdvReac Type Severity Reaction Status Date / Time morphine Allergy Severe respiratory Verified 01/08/18 17:19 PMH/Surg Hx/FS Hx/Imm Hx Endocrine/Hematology History: Reports: Hx Diabetes Cardiovascular History: Reports: Hx Hypertension Respiratory History: Reports: Hx Chronic Obstructive Pulmonary Disease (COPD) - Surgical History Surgery Procedure, Year, and Place: back surgery x2. uterine ablation Infectious Disease History: No Infectious Disease History: Denies: Traveled Outside the [place] in Last 30 Days - Family History Known Family History: Positive: Hypertension, Diabetes - Social History Alcohol Use: Occasionally Substance Use Type: Reports: Marijuana Substance Use Comment - Amount & Last Used: occasional for pain Smoking Status (MU): Heavy Every Day Tobacco Smoker Type: Cigarettes Amount Used/How Often: 3/4 to 1 ppd Review of Systems Constitutional: Negative Eyes: Negative ENT: Negative Cardiovascular: Negative Respiratory: Negative Gastrointestinal: Negative Musculoskeletal: Negative Skin: Negative Neurological: Other - sYNCOPE AND SEIZURES Psychological: Normal All Other Systems Reviewed And Are Negative: Yes Physical Exam - Summary Physical Exam Summary: Vital Signs Reviewed: Yes Appearance: Positive: APPEARS SOMNOLENT BUT TRYING TO KEEP AWAKE Skin: Neg skin lesions Respiratory/Lung Sounds: Positive: Clear to Auscultation Cardiovascular: Positive: Normal, RRR, S1, S2 Abdomen Description: Positive: Nontender Musculoskeletal: Positive: Normal Neurological: Positive: Normal Psychiatric: Positive: Normal Triage Information Reviewed: Yes Vital Signs On Initial Exam: Initial Vitals Temp Pulse Resp BP Pulse Ox 37.6 C 61 17 129/64 97 01/08/18 17:14 01/08/18 17:14 01/08/18 17:14 01/08/18 17:14 01/08/18 17:14 Vital Signs Reviewed: Yes Appearance: Positive: Ill-Appearing, Obese Diagnostics - Vital Signs Vital Signs Temp Pulse Resp BP Pulse Ox 01/08/18 17:14 37.6 C 61 17 129/64 97 - Laboratory Lab Statement: Any lab studies that have been ordered have been reviewed, and results considered in the medical decision making process. Adult Trauma Course/Dx - Course Course Of Treatment: PT IS ON 350MG OF SOMA/DAY, DIAZEPAM 10MG PO QD PRN, LYRICA 100 BID, AND PROVIGIL FOR NARCOLEPSY- WHICH MAY BE INEFFECTIVE PT IS QUITE SEDATED FOR MOST OF THE DAY WITH THE HIGH HIGH DOSES OF SOMA, DIAZEPAM AND LYRICA IS MAKING HER MORE NARCOLEPTIC AND CAUSING SYNCOPAL EPISODES MORE FREQUENT. ADVISED REVAMPING MED LIST AND RECONCILIATING SO PT IS NO LONGER "SNOWED INTO OBLIVION" INTO SYNCOPE/SEIZURE AND POSSIBLE BRAIN BLEED AND .NEED TO DECREASE AND EVENTUALLY COME OFF OF SOMA AND BENZO. PT VERBALIZED UNDERSTANDING BUT RELATES THAT SHE IS IN CONSTANT PHYSICAL AND MENTAL ANGUISH AND HAS RELIED ON THESE MEDS FOR A LONG TIME BUT WILL DISCUSS AND ADDRESS THIS ISSUE WITH HER PCP. CT HEAD AND C-SPINE NEG FOR BLEED, FX AND DISLOCATION - Diagnoses Provider Diagnoses: Syncope and collapse, Polypharmacy Discharge - Sign-Out/Discharge Documenting (check all that apply): Discharge/Admit/Transfer - Discharge Plan Condition: Stable Disposition: HOME Patient Education Materials: Syncope (ED) Referrals: Mariluz Martinez MD [Primary Care Provider] - Additional Instructions: PLEASE FOLLOW UP WITH ALL OF YOUR HEALTH CARE PROVIDERS ABOUT DECREASING YOUR SEDATIVE MEDICATIONS IT IS MAKING YOUR NARCOLEPSY WORSE, PERHAPS DECREASING YOUR SEIZURE THRESHOLD, CONCURRENTLY ENHANCING YOUR BLACK-OUT EPISODES. - Billing Disposition and Condition Condition: STABLE Disposition: Home
--- NOTE | 2018-01-08 18:54 | RAD ---
indication: Left neck and shoulder pain after a fall COMPARISON: None A CT scan of the brain and c-spine was performed without intravenous contrast enhancement. Contiguous axial sections were obtained from the lung apices through the vertex. BRAIN: The ventricles, cisterns and sulci are within normal limits. No significant focal abnormality or mass effect is seen. The hinojosa-white differentiation is adequately maintained. There is no intracranial hemorrhage. No significant bony abnormality is present. The mastoid air cells are appropriately aerated. The visualized paranasal sinuses are clear. C-SPINE: There is a mild degree of reversal of the normal cervical lordosis. The vertebral bodies and facet joints are otherwise appropriately aligned. Degenerative changes include loss of intervertebral disc height most severely affecting C5/C6. There is no acute fracture or dislocation. There is no hyperdense material in the cervical canal to indicate hemorrhage. The visualized musculature and soft tissues are normal. There is no gross lymphadenopathy visualized. The visualized portion of the lung apices are clear. IMPRESSION: 1. No calvarial fracture or acute intracranial hemorrhage. 2. There is nonspecific mild reversal of the normal cervical lordosis and loss of intervertebral disc height involving the cervical spine without acute fracture or dislocation.
== END 2018-01-08 19:26 | disposition home or self-care (01) ==
LOC: UCCORT 16:48
DX: R55 Syncope and collapse (principal); T42.8X5A Adverse effect of antiparkinsonism drugs and other central muscle-tone depressants, initial encounter; T42.4X5A Adverse effect of benzodiazepines, initial encounter; T42.6X5A Adverse effect of other antiepileptic and sedative-hypnotic drugs, initial encounter; Y92.009 Unspecified place in unspecified non-institutional (private) residence as the place of occurrence of the external cause; Z88.5 Allergy status to narcotic agent; E11.9 Type 2 diabetes mellitus without complications; I10 Essential (primary) hypertension; G40.909 Epilepsy, unspecified, not intractable, without status epilepticus; F17.210 Nicotine dependence, cigarettes, uncomplicated
CPT/HCPCS: 70450; 72125; 99212; G0463

== ENCOUNTER 2018-10-06 19:56 | Emergency (ER) | payer BC, MEDICARE ==
--- OUTSIDE RECORDS SUMMARY | 2018-10-06 20:10 | XMS REPORT | Continuity of Care Document ---
:1955 External Reference #:[id number] Demographics Address [address] [place] [address] Mobile Phone [phone] Preferred Language en Marital Status Declined to Specify/Unknown Alevism Affiliation Unknown Race White Ethnic Group Declined to Specify/Unknown Author Name Danyelle Calzada Care Team Providers Name Role Phone Jimmy Mojica MD Primary Care Physician Unavailable Payers Date Identification Numbers Payment Provider Subscriber Policy Number: [id number] [employer] Rishi Hoyos PayID: [id number] [address] [address] ANGELICA Jimenez [address] Policy Number: [id number] [facility] Victorina Hoyos Group Name: [employer] [address] PayID: [id number] [place] [address] Effective: 2018 Policy Number: [facility] Victorina Hoyos [id number] PayID: [id number] [address] [place] [address] Advance Directives Description No Information Available Problems Date Description Provider Status Onset: 03/02/2018 Essential hypertension Active Onset: 03/02/2018 Type 2 diabetes mellitus Active Onset: 03/02/2018 Hyperlipidemia Active Onset: 03/02/2018 Fibromyalgia Active Onset: 03/02/2018 Chronic obstructive lung disease Active Onset: 03/02/2018 Dementia Active Onset: 03/02/2018 Schizophrenia Active Onset: 03/02/2018 Major depressive disorder Active Family History Date Family Member(s) Observation Comments : (age 56 Years) Father due to NE Father Vascular Disease PVD Mother Diabetes Type II : (age 56 Years) Mother due to Ovarian Cancer Social History Type Date Description Comments Sex Unknown Marital Status Lives With Pets 2 cats Occupation 1997 Disabled ETOH Use Occasionally consumes alcohol Tobacco Use Start: 07/20/72 Heavy tobacco smoker (more than 10 cigarettes/day) Recreational Drug Use Regularly uses Marijuana for pain relief Smoking Status Reviewed: 08/25/18 Heavy tobacco smoker (more than 10 cigarettes/day) Currently Active Patient is currently sexually active Allergies, Adverse Reactions, Alerts Date Description Reaction Status Severity Comments 07/23/2018 Morphine Free Text Active Severe 07/23/2018 Atorvastatin Active 07/23/2018 Amitriptyline Active 07/23/2018 Valproic Acid Active 07/23/2018 Zithromax Active 07/23/2018 Sumatriptan Active Medications Medication Date Status Form Strength Qnty SIG Indications Ordering Provider Ishjuli CQ 09/27/ Active Patches 14mg/24HR 28uni apply daily Z71.6 2018 24HR ts as directed Castellaagustina os, Amoxicillin/Cl 09/27/ Active Tablets 875-125mg 20tab 1 by mouth J06.9 Jimmy avulanate 2018 s twice a day Castellan Potassium os, Albuterol 09/27/ Active Nebulizer (2.5mg/3M 50uni 1 J44.9 Jimmy Sulfate 2018 L) 0.083% ts application Castellan every 4 os, MD hours as needed Ventolin HFA 06/14/ Active Aerosol 108(90Bas 1unit 2 puffs 2017 e) s every 4 Castellan mcg/Act hours as os, needed Calcium + D3 04/09/ Active Tablets 600-200 90tab 3 times a 2017 s day Castellan os, Epipen 2-Catrachito 04/09/ Active Solution 0.3mg/0.3 2unit use as 2017 Auto-Inject ML s directed Xavierellaagustina os, Donepezil HCL 03/02/ Active Tablets 10mg 30tab 1 by mouth F02.80 2017 s once a day Castellan os, Ondansetron 03/02/ Active Tablets 8mg 30tab 1 by mouth 2017 Dispers s every 8 Castellan hours as os, needed for nausea Esomeprazole 03/02/ Active Capsules DR 40mg 30cap 1 by mouth Magnesium 2017 s every other Castellan day os, Modafinil 03/02/ Active Tablets 200mg 60tab 1 by mouth 2017 s twice daily Castellan mdd 2 os, Duloxetine HCL 03/02/ Active Caps DR 60mg 30cap 1 by mouth F33.1 2017 Part s 2x daily Castellan os, Spiriva 03/02/ Active Capsules 18mcg 30cap 1 cap Jimmy Handihaler 2017 s inhaled Castellan daily os, Advair Diskus 03/02/ Active Aerosol 500-50mcg inhale 1 2017 /Dose puff by Xavierellaagustina mouth twice os, daily - rinse mouth after each use Eliquis 03/02/ Active Tablets 2.5mg 60tab 1 by mouth Jimmy Mcwilliams s twice a day Piotr os, Cetirizine HCL 03/02/ Active Tablets 10mg 30tab 1 by mouth Jimmy 2017 s every day Piotr seay, Gabapentin 03/02/ Active Tablets 600mg 180ta take two M79.7 Jimmy 2017 bs tablets by Castellan mouth three os, times a day Nicoderm CQ 05/17/ Hx Patches 21mg/24HR 21uni use daily Z71.6 Jimmy 2017 - 24HR ts Castellan 09/27/ os, 2019 Amoxicillin/Cl 05/10/ Hx Tablets 500-125mg 30tab 1 by mouth J20.9 Jimmy avulanatroberto carlos 2017 three times Castellan Potassium 06/14/ a day os, 2018 Trazodone HCL 04/09/ Hx Tablets 100mg 30tab 1 every G47.00 Jimmy 2017 - s night at Castellan 07/21/ bedtime os, 2019 Amoxicillin/Cl 04/02/ Hx Tablets 875-125mg 21tab 1 by mouth J01.90 Jimmy avulanatroberto carlos 2017 - s three times Castellan Potassium 04/09/ a day os, 2018 Lyrica 03/02/ Hx Capsules 100mg 90cap 1 by mouth M79.7 Jimmy 2017 - s three times Castellan 09/27/ a day os, 2019 Carisoprodol 03/02/ Hx Tablets 350mg 30tab 1 at at Jimmy 2017 - s bedtime Xavierellan 07/21/ os, 2019 Nystatin 03/02/ Hx Powder [id number] 60uni apply powder Jimmy 2017 - t/GM ts to affected Castellan 04/02/ areas under os, 2018 breast and abdominal folds 2x daily Proair HFA 03/02/ Hx Aerosol 108(90Bas 8.500 2 puffs Jimmy 2017 - e) units every 4 Castellan 06/14/ mcg/Act hours as os, 2018 needed Niacin ER 03/02/ Hx Tablets ER 1000mg 30tab 2 by mouth Jimmy (Antihyperlipi 2017 - [facility] 04/02/ os, 2018 Restasis 03/02/ Hx Emulsion 0.05% 1 gtt 2x Jimmy 2017 - daily each Xavierellan 07/21/ eye os, 2018 Celecoxib 03/02/ Hx Capsules 200mg 30cap 1 by mouth Jimmy 2018 - s every day Xavierellan 04/09/ os, 2018 Topiramate 03/02/ Hx Tablets 100mg 90tab 1 tab 2x Jimmy 2017 - s daily Xavierellan 07/21/ os, 2019 Gemfibrozil 03/02/ Hx Tablets 600mg 60tab take one Jimmy 2017 - s tablet by Piotr 04/09/ mouth twice os, 2018 a day Diazepam 03/02/ Hx Tablets 10mg 1 tablet by F40.01 Jimmy 2017 - mouth every Castellan 03/02/ 8 hours as os, 2018 needed for anxiety MDD 3 Albuterol Hx Nebulizer (2.5mg/3M 100un 1 unit qid Jimmy Whitman 2018 - L) 0.083% its as needed Xavierellan 06/14/ os, 2018 Calcium 03/02/ Hx Tablets 600-400mg 60tab one by mouth Jimmy Carbonate-Bruna 2018 - -Unit s 2x daily Castellan min D3 04/09/ os, 2018 Furosemide 03/02/ Hx Tablets 40mg 30tab 1 by mouth Jimmy 2017 - s every day Castellan 04/02/ yonis needed os, 2018 for edema Propranolol 03/02/ Hx Tablets 20mg 120ta 1 by mouth 2 Jimmy HCL 2018 - bs times a day Castellan 04/02/ os, 2018 Clonidine HCL 03/02/ Hx Tablets 0.1mg 60tab 1 by mouth Jimmy 2018 - s three times Castellan 04/02/ a day as os, 2018 needed Risperidone 03/02/ Hx Tablets 3mg 60tab 2 at bedtime F25.0 Jimmy 2018 - Dispers s Castellan 03/02/ os, 2018 Alprazolam 03/02/ Hx Tablets 1mg 14tab take by F40.01 Jimmy 2018 - s mouth up to Castellan 05/17/ times a os, 2018 day for panic attack Immunizations Description No Information Available Vital Signs Date Vital Result Comment 09/27/2018 11:36am Weight 236.00 lb Heart Rate 86 /min BP Systolic 166 mmHg BP Diastolic 70 mmHg Respiratory Rate 20 /min Pain Level 7 O2 % BldC Oximetry 97 % 08/25/2018 10:47am Weight 236.00 lb Heart Rate 74 /min BP Systolic 144 mmHg BP Diastolic 72 mmHg Body Temperature 16.0 F O2 % BldC Oximetry 94 % 07/21/2018 1:53pm Weight 239.12 lb Heart Rate 77 /min BP Systolic 170 mmHg BP Diastolic 82 mmHg Body Temperature 98.5 F 06/14/2018 2:05pm Weight 247.00 lb Heart Rate 81 /min BP Systolic 154 mmHg BP Diastolic 80 mmHg Respiratory Rate 20 /min 05/17/2018 11:00am Weight 246.00 lb Heart Rate 84 /min BP Systolic 148 mmHg BP Diastolic 70 mmHg Body Temperature 97.7 F 05/10/2018 11:10am Weight 244.00 lb Heart Rate 64 /min BP Systolic 144 mmHg BP Diastolic 70 mmHg Body Temperature 97.6 F 04/09/2018 9:46am Weight 248.00 lb BP Systolic 132 mmHg BP Diastolic 80 mmHg 04/02/2018 9:30am Weight 241.00 lb Heart Rate 74 /min BP Systolic 126 mmHg BP Diastolic 72 mmHg Respiratory Rate 18 /min 03/02/2018 3:21pm Height 66 inches Weight 249.00 lb Heart Rate 76 /min BP Systolic 130 mmHg BP Diastolic 78 mmHg Body Temperature 98.5 F BMI (Body Mass Index) 40.2 kg/m2 Results Test Date Facility Test Result H/L Range Note Laboratory test 06/14/2018 N2N/CCD Import [facility] 1 finding <See Note> Renal Function 06/08/2018 N2N/CCD Import Albumin 3.6 g/dL 3.4-5 2 Panel Anion Gap 5 mEq/L Low 8-16 BUN 14 mg/dL 7-18 BUN/Creat 14.0 ratio Calcium 9.1 mg/dL 8.5-10.1 Carbon Dioxide 30 mmol/L 21-32 Chloride 109 mmol/L High 98-107 Creatinine 1.0 mg/dL 0.6-1.3 Glom Filtration Rate, Estimate 60 mL/min Glucose 111 mg/dL High 74-106 If >60 mL/min 3 Phosphorous 4.0 mg/dL 2.5-4 Potassium 4.5 mmol/L 3.5-5.1 Sodium 144 mmol/L 136-[address] [facility]. [address] [place] [address] GYNECOLOGIC CYTOLOGY REPORT Accession Number: [id number] Source of Specimen(s): A: [facility] Cervical Pap Smear - One Vial Clinical Diagnosis and History: Date of Last Menstrual Period: yrs Other Clinical Conditions: Last Pap Smear: 2016 neg REFLEX TO HPV ASSAY IF RESULTS OF THIS PAP ARE ASCUS Specimen Adequacy SATISFACTORY FOR EVALUATION ABSENCE OF ENDOCERVICAL/TRANSFORMATION ZONE COMPONENT General Categorization NEGATIVE FOR INTRAEPITHELIAL LESION OR MALIGNANCY Interpretation NEGATIVE FOR INTRAEPITHELIAL LESION OR MALIGNANCY Reported: 06/17/2018 06:35 Electronically Signed Out By More ALMENDAREZ(ASCP) dol ICD code: Z12.4 CPT code: A: SD340QOE 2 M96.1,M54.16,,M25.551,M25.552 3 Note: Persistent reduction for 3 months or more in an eGFR <60 mL/min/1.73 m2 defines CKD. Patients with eGFR values >/=60 mL/min/1.73 m2 may also have CKD if evidence of persistent proteinuria is present. The original MDRD equation for estimated GFR is not valid for patients less than 18 years of age. Additional information may be found at www.kdoqi.org. 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 Yunior use of anticoagulants J44.9 Chronic obstructive pulmonary disease, unspecified F17.200 Nicotine dependence, unspecified, uncomplicated K21.9 Gastro-esophageal reflux disease without esophagitis G30.0 Alzheimer's disease 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 M54.5 Low back pain M50.00 Cervical disc disorder with myelopathy, unsp cervical region Z12.31 Encntr screen mammogram for malignant neoplasm of breast Z01.818 Encounter for other preprocedural examination Plan of Treatment Future Appointment(s):11/22/2018 10:30 am - Jimmy Mojica MD at [facility]09/27/2018 - Jimmy Mojica MDJ06.9 Acute upper respiratory infection, unspecifiedNew Medication:Amoxicillin/Clavulanate Potassium 875-125 mg - 1 by mouth twice a dayZ79.01 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
[2018-10-06 20:17] VITALS: BP 153/71
--- NOTE | 2018-10-06 20:34 | UC ---
Back Pain HPI - HPI Summary HPI Summary: PT PRESENTS WITH C/O SUDDEN ONSET OF LOW BACK PAIN . PT HAS LONG HISTORY OF CHRONIC BACK, PAIN, DEGENERATIVE DISC DISORDER AND 2 PREVIOUS BACK SURGERIES. Pt denies loss of bowel or bladder control and saddle anesthesia. - History of Current Complaint Chief Complaint: UCBackPain Stated Complaint: BACK PAIN Time Seen by Provider: 10/06/18 20:14 Hx Obtained From: Patient Hx Last Menstrual Period: ablation ?: No Onset/Duration: Sudden Onset, Lasting Days, Still Present Timing: Constant, Intermittent - worsens with movements Severity Initially: Severe Severity Currently: Moderate Pain Intensity: 8 Back Pain: Is Discrete @ - low back Character: Sharp, Dull, Stiffness Aggravating Factor(s): Movement, Lifting, Bending, Walking Alleviating Factor(s): Rest, Position Associated Signs And Symptoms: Positive: Negative - Risk Factors AAA Risk Factors: Negative TAD Risk Factors: Negative Cauda Equina Risk Factors: Negative Epidural Abscess Risk Factors: Negative - Allergies/Home Medications Allergies/Adverse Reactions: Allergies Allergy/AdvReac Type Severity Reaction Status Date / Time morphine Allergy Severe respiratory Verified 10/06/18 20:13 PMH/Surg Hx/FS Hx/Imm Hx Previously Healthy: Yes - Surgical History Surgical History: Yes Surgery Procedure, Year, and Place: back surgery x2. uterine ablation. bilat carpal tunnel - Family History Known Family History: Positive: Hypertension, Diabetes - Social History Occupation: Disabled Lives: With Family Alcohol Use: Occasionally Substance Use Type: None Substance Use Comment - Amount & Last Used: occasional for pain Smoking Status (MU): Heavy Every Day Tobacco Smoker Type: Cigarettes Amount Used/How Often: <1/2 PPD Have You Smoked in the Last Year: Yes Review of Systems All Other Systems Reviewed And Are Negative: Yes Constitutional: Positive: Negative Skin: Positive: Negative Eyes: Positive: Negative ENT: Positive: Negative Respiratory: Positive: Negative Cardiovascular: Positive: Negative Gastrointestinal: Positive: Negative Genitourinary: Positive: Negative Motor: Positive: Decreased ROM - low back, Weakness - generalized Neurovascular: Positive: Negative Musculoskeletal: Positive: Arthralgia, Decreased ROM - low back, Myalgia Neurological: Positive: Negative Psychological: Positive: Negative Is Patient Immunocompromised?: No Physical Exam Triage Information Reviewed: Yes Appearance: Pain Distress, Obese Vital Signs: Initial Vital Signs Temp 99.3 F 10/06/18 20:14 Pulse 81 10/06/18 20:14 Resp 16 10/06/18 20:14 BP 153/71 10/06/18 20:14 Pulse Ox 95 10/06/18 20:14 Vital Signs Reviewed: Yes Eye Exam: Normal ENT Exam: Normal Dental Exam: Normal Neck exam: Normal Respiratory Exam: Normal Cardiovascular Exam: Normal Musculoskeletal: Positive: ROM Limited @ - low back Neurological Exam: Normal - at baseline Psychological Exam: Normal Skin Exam: Normal Back Pain Course/Dx - Course Course Of Treatment: I discussed my concerns about her past hx of low back pain, surgery and Degenerative disc disorder and bulging discs and sudden onset of worsening pain. Pt verbalized understanding and agreed to plan of care. - Differential Dx/Diagnosis Differential Diagnosis/HQI/PQRI: Herniated Disc Provider Diagnosis: Low back pain Discharge - Sign-Out/Discharge Documenting (check all that apply): Patient Departure All imaging exams completed and their final reports reviewed: No Studies - Discharge Plan Condition: Stable Disposition: HOME-RECOMMEND TO ED Patient Education Materials: Acute Low Back Pain (ED) Referrals: Jimmy Mojica MD [Primary Care Provider] - If Needed Additional Instructions: IT IS RECOMMENDED THAT YOU SEEK CARE AT THE CLOSEST EMERGENCY ROOM FOR FURTHER EVALUATION, TESTING AND TREATMENT. - Billing Disposition and Condition Condition: STABLE Disposition: Home-Recommend to ED - Attestation Statements Provider Attestation: Per institutional requirements, I have reviewed the chart, however, I was not consulted specifically or made aware of this patient by the midlevel provider. I did not personally evaluate, interact with , or disposition this patient.
== END 2018-10-06 20:42 | disposition home health service (06) ==
LOC: UCCORT 19:56
DX: M54.5 Low back pain (principal); G89.29 Other chronic pain; M51.36 Other intervertebral disc degeneration, lumbar region; M51.26 Other intervertebral disc displacement, lumbar region; F17.210 Nicotine dependence, cigarettes, uncomplicated; E66.9 Obesity, unspecified; Z98.890 Other specified postprocedural states; Z88.5 Allergy status to narcotic agent
CPT/HCPCS: 99212; G0463